=== PATIENT | female | born 1980 | race Caucasian/White ===

== ENCOUNTER → 2017-09-14 | Outpatient (CLI) | payer BC ==
[~2017-09-14] MED LIST: CLR10 PO; MTR600X PO; PRENTAB26 PO
== END | disposition home or self-care (01) ==
LOC: C.LABSPEC 13:32
PROVIDERS: ATTEND Physician Assistant
DX: Z01.419 Encounter for gynecological examination (general) (routine) without abnormal findings (principal)

== ENCOUNTER → 2017-09-14 | Outpatient (CLI) | payer BC | END | disposition home or self-care (01) | LOC: C.PAPS 15:24 | PROVIDERS: ATTEND Physician Assistant | DX: Z01.419 Encounter for gynecological examination (general) (routine) without abnormal findings (principal); Z11.51 Encounter for screening for human papillomavirus (HPV) ==

== ENCOUNTER 2020-06-21 08:03 | Inpatient (IN) ==
[2020-06-21] MEDS ORDERED: SODIUM CHLORIDE 0.9% 1000ML 1,000 ML IV ONE (08:23)
[2020-06-21] MEDS ORDERED: ACETAMINOPHEN 1,000 MG/100 ML VIAL IV STA (08:23)
[2020-06-21] MEDS: HYDROmorphone INJ 1 MG/ML SYRINGE IV PRN ×5 (08:35→20:51)
[2020-06-21 08:40] LABS: Basophils # (auto) 0.07 K/uL (0-0.2); Basophils % (auto) 0.9 %; Eosinophils # (auto) 0.66 K/uL (0-0.5); Eosinophils % (auto) 8.2 %; Hematocrit (blood only) 39.1 % (37-47); Hemoglobin 13.3 g/dL (12.0-16.0); Lymphocytes # (auto) 1.83 K/uL (1.2-3.4); Lymphocytes % (auto) 22.7 %; Mean Corpuscular Volume 94.2 fL (80-100); Mean Platelet Volume 9.7 fL (7.4-10.4); Monocytes # (auto) 0.57 K/uL (0.11-0.59); Monocytes % (auto) 7.1 %; Neutrophils # (auto) 4.93 K/uL (1.4-6.5); Neutrophils % (auto) 61.1 %; Platelet Count 215 K/uL (130-400); RDW Coefficient of Variation 12.1 % (11.5-14.5); RDW Standard Deviation 41.2 fL (36.4-46.3); Red Blood Count 4.15 M/uL (4.2-5.4); White Blood Count 8.06 K/uL (4.8-10.8)
[2020-06-21 08:58] LABS: Albumin Level 3.5 gm/dl (3.4-5.0); BUN Creatinine Ratio 16.9 (10-20); Calcium 9.3 mg/dl (8.5-10.1); Creatinine Clr Calc Pharmacy 83.3 ml/min; Est GFR (African American) 112.1; Est GFR (Non-African American) 96.8; Potassium 4.1 mmol/L (3.5-5.1)
[2020-06-21 09:01] LABS: Albumin Globulin Ratio 0.9 (0.9-2); Bilirubin,Total 0.2 mg/dl (0.2-1); Globulin 4.1 gm/dl (2.5-4.0); Total Protein 7.6 gm/dl (6.4-8.2)
--- NOTE | 2020-06-21 10:11 | Magnetic Resonance Report ---
MR lumbar spine wo con CLINICAL HISTORY: 40 years-old Female with Pt c/o back surgery, severe pain. Acute severe low back p ain in a patient with history of prior L5-S1 microdiscectomy performed 06/11/2020. Patient also compla ins of left lower extremity weakness. COMPARISON: Lumbar spine MRI 11/30/2019 TECHNIQUE: Multiplanar, multi sequence MRI of the lumbar spine was performed without intravenous cont rast. FINDINGS: Anteflexed uterus. Compensation Adjuster localizer images demonstrate no gross extraspinal abnormality. Modic type II endplate degeneration at L5-S1. Mild to moderate nonspecific edema throughout the sacrum with edema also noted within the left paraspinal musculature at L5-S1. No discrete postoperative fluid collectio n. Signal within the imaged thoracic spinal cord is unremarkable. Conus medullaris terminates at T12- L1. Please T12-L1: No central canal or neural foraminal stenosis. L1-L2: Mild facet arthrosis. No central canal or neural foraminal stenosis. L2-L3: Mild facet arthrosis. No central canal or neural foraminal stenosis. L3-L4: Minimal disc desiccation with small posterior annular disc bulge. Mild facet arthrosis with l igamentum flavum thickening. Flattening of the ventral thecal sac without significant central canal s tenosis. Mild narrowing of the bilateral inferior neural foramina. Unchanged. L4-L5: Mild disc desiccation with small posterior annular disc bulge. Mild facet arthrosis with liga mentum flavum thickening. Findings result in mild central canal stenosis with mild narrowing of the l ateral recesses. [id number] left with mild right foraminal narrowing. Unchanged. L5-S1: Mild to moderate disc space narrowing with Modic type II endplate degeneration. Circumferenti al annular disc bulge with central/left paracentral left lateral recess disc protrusion is redemonstr ated. This again measures 1.7 cm transversely by 0.7 cm in AP dimension. AP dimension of the thecal s ac measures 4.5 mm. This results in severe central canal stenosis with severe bilateral lateral reces s narrowing. There is again about men with posterior displacement of the left S1 nerve root. Edema titus rrounds the disc protrusion and left S1 nerve root which is new from prior. Postoperative changes of interval left hemilaminectomy. IMPRESSION: 1. Interval postoperative changes at L5-S1 suggestive of L5-S1 hemilaminectomy with moderate paraspin al muscular edema, likely expected postoperative finding without discrete postoperative fluid collect ion. Circumferential annular disc bulge at this level with persistent large posterior disc protrusion is again noted resulting in severe central canal and severe bilateral recess narrowing with abutment and posterior displacement of the left S1 nerve root. There is now edema within the left lateral rec ess and left S1 nerve root which may be on a postoperative basis. 2. Nonspecific marrow edema throughout the sacrum may be reactive. 3. Unchanged additional discogenic degeneration and facet arthrosis at L3-L4 and L4-L5. ACT 112: Negative or not required by law. The above report was generated using voice recognition software. It may contain grammatical, syntax o r spelling errors. Electronically signed by: Bao Jacobson M.D. 06/21/2020 10:09 AM
[2020-06-21 10:16] LABS: Appearance Urine Clear (Clear); Bacteria Urine Automated Negative (Negative); Bilirubin Urine Negative (Negative); Blood Urine Negative (Negative); Cast Urine Automated 0 /lpf (0-5); Color Urine Yellow; Glucose Urine UA Negative (Negative); Ketones Urine Negative (Negative); Leukocyte Esterase Urine 1+ (Negative); Nitrite Urine Negative (Negative); Protein Urine Negative (Negative); RBC Urine Automated 0-4 /hpf (0-4); Specific Gravity Urine 1.022 (1.000-1.030); Urobilinogen Urine Negative (Negative); pH Urine 6.5 (4.5-7.5)
[2020-06-21] MEDS ORDERED: DEXAMETHASONE SOD INJ 10 MG/ML VIAL IV ONE (10:27)
--- NOTE | 2020-06-21 11:16 | History & Physical Report ---
Date of Service June 21, 2020 Assessment & Plan (1) Recurrent herniation of lumbar disc: Admission and Anticipated Discharge Date Admission Date: At this time the patient clearly has recurrent lumbar disc condition from the operative site. She is quite uncomfortable with inability to ambulate and neurologic decline. I am going to place her in the hospital for pain management. We discussed revision decompression and fusion at L5-S1. Her was present throughout the discussion. Risk-benefit pros cons alternatives. This is the course of action she would like to undertake. We will have surgery performed Tuesday if cleared. History of Present Illness Chief Complaint: Back and left leg pain Primary Care Provider: Francisco Javier Calvo MD This is a 40-year-old female well-known to me that presents with marked increase in back and left leg pain. She believes the symptoms began late Tuesday progressed through and this morning became so severe she was unable to tolerate the pain and subsequently to the emergency room. She is status post lumbar laminotomy L5-S1 on the left approximately 2 weeks ago. She done nicely postoperatively with resolution of her symptoms until this recent event. MRI obtained this morning the emergency room does demonstrate a massive recurrent disc herniation L5-S1 the left with significant encroachment of the traversing nerve roots. Allergies Allergy/AdvReac Type Severity Reaction Status Date / Time No Known Allergies Allergy Verified 06/21/20 08:32 Home Medications Home Medications Medication Instructions Recorded Confirmed Type trazodone 1.5 tab PO HS PRN 10/06/18 06/21/20 History norethindrone 1 mg-ethinyl 1 tab PO QAM #28 tab 10/22/19 06/21/20 Rx estradiol 20 mcg (21)-iron 75 mg (7) tablet citalopram 40 mg tablet 40 mg PO DAILY tab 11/26/19 06/21/20 History loratadine-pseudoephedrine ER 10 1 tab PO DAILY PRN #30 tab 01/24/20 06/21/20 Rx mg-240 mg tablet,extended [id number] gabapentin 300 mg PO HS 05/26/20 06/21/20 History oxycodone 5 mg PO Q6H PRN #20 tab 06/11/20 06/21/20 Rx Past Med/Surg History Medical History (Updated 06/21/20 @ 11:15 by Hira Love DO) Abdominal pain Anxiety Depression History of hemorrhoids Surgical History History of bunionectomy of left great toe History of bunionectomy of right great toe History of colonoscopy History of open reduction and internal fixation (ORIF) procedure left shoulder--hardware in place History of wisdom tooth extraction Family History Grandmother (Maternal) Family history of diabetes mellitus Diabetes Grandfather (Paternal) Family hx of colon cancer Uncle Family hx of colon cancer Aunt Family hx of colon cancer Father Depression Pure hypercholesterolemia Mother Osteoporosis Pure hypercholesterolemia Denies family history of Ovarian cancer Breast cancer Uterine cancer Social History Smoking Status: Former smoker Tobacco Type: Cigarettes Second Hand Exposure: No; Hx Alcohol Use: Yes Alcohol type: wine Hx Substance Use: No Preferred Language: Filipino Communication Ability: Effective Visual Impairment: No Limitations Hearing Ability: Normal Nut Former Required: No Beliefs That Will Affect Care: None Current Living Situation: Spouse and Family Current Living Situation Comment: Lives with 2 daughters Other Information That Helps Us Care for You: No Feels Safe at Home: Yes Safety Concerns: Feels Safe At This Time Childhood Exposure to Second-Hand Smoke: No Assistive Devices: Glasses Physical Exam Physical Exam: On exam the patient is obvious distress. She is severe tension signs straight leg raising on the left minimal on the right. She exhibits strength deficits plantar flexion on the left compared to the right. D orsiflexion appears to be symmetric. Quadriceps symmetric and intact at 5 or 5. Incision healing appropriately. There is no significant erythema or drainage. Heart regular in rhythm Lungs clear to auscultation Results & Data ([facility]) Vital Signs (Past 12 Hours) Vital Signs Temp Pulse Pulse Resp BP BP Pulse Ox 06/21/20 10:34 79 20 110/73 99 06/21/20 09:52 84 16 99/66 L 96 06/21/20 09:04 83 16 103/67 98 06/21/20 08:44 83 18 106/65 98 06/21/20 08:40 97 06/21/20 08:10 36.4 C L 98 H 18 96/71 L 98
[2020-06-21] MEDS ORDERED: HYDROmorphone INJ 0.5 MG/0.5 ML SYR IV PRN (12:24)
[2020-06-21] MEDS ORDERED: TRAMADOL HCL 50 MG TABLET PO PRN (12:24)
[2020-06-21] MEDS ORDERED: ONDANSETRON 4 MG OD TAB PO PRN (12:24)
[2020-06-21] MEDS ORDERED: LORazepam 1 MG TAB PO PRN (12:24)
[2020-06-21] MEDS ORDERED: ONDANSETRON INJ 2 MG/ML 2 ML VIAL IV PRN (12:24)
[2020-06-21] MEDS ORDERED: PROMETHAZINE HCL 12.5 MG in SODIUM CHLORIDE 0.9% 50 ML IV PRN (12:24)
[2020-06-21] MEDS ORDERED: ACETAMINOPHEN 500 MG TAB PO PRN (12:24)
[2020-06-21] MEDS ORDERED: METOCLOPRAMIDE HCL INJ 5 MG/ML 2 ML VIAL IV PRN (12:24)
[2020-06-21] MEDS ORDERED: LORATADINE/PSEUDOEPHEDRINE 1 TABCR PO PRN (12:24)
[2020-06-21 12:52] LABS: Pregnancy Test, Serum Negative (Negative)
--- NOTE | 2020-06-21 13:30 | Emergency Department Note ---
History of Present Illness General Chief complaint: Back Injury/Pain Stated complaint: BACK PAIN S/P SURGERY 06/11/20 Time Seen by Provider: 06/21/20 08:17 Source: patient, family, RN notes reviewed and old records reviewed Mode of arrival: ambulatory Limitations: no limitations History of Present Illness Provider complaint: Back pain Onset (ago): day(s) 1 Location: back Radiation: extremity Severity: severe Pain Consistency: + intermittent Maximum Pain Intensity: 10 Current Pain Intensity: 10 Quality: + stabbing Relieved By: + other (standing) Exacerbated By: + other (laying down) Associated symptoms: + denies other symptoms; no chest pain, no diaphoresis, no fever/chills, no headaches, no loss of appetite and no nausea/vomiting Treatments prior to arrival: none This is a 40-year-old female who presents emergency department over concerns that she has developing back pain. The patient recently had back surgery approximately 10 days ago. She reports the back pain became much worse within the last 24 hours. She has been taking oxycodone for the pain without relief. She reports the pain gets much worse if she lays down. She stands and feels much better she reports the back pain is a stabbing sensation that radiates into her leg. Home Medications Home Medications Medication Instructions Recorded Confirmed Type trazodone 1.5 tab PO HS PRN 10/06/18 06/21/20 History norethindrone 1 mg-ethinyl 1 tab PO QAM #28 tab 10/22/19 06/21/20 Rx estradiol 20 mcg (21)-iron 75 mg (7) tablet citalopram 40 mg tablet 40 mg PO DAILY tab 11/26/19 06/21/20 History loratadine-pseudoephedrine ER 10 1 tab PO DAILY PRN #30 tab 01/24/20 06/21/20 Rx mg-240 mg tablet,extended [id number] gabapentin 300 mg PO HS 05/26/20 06/21/20 History oxycodone 5 mg PO Q6H PRN #20 tab 06/11/20 06/21/20 Rx Allergies Allergy/AdvReac Type Severity Reaction Status Date / Time No Known Allergies Allergy Verified 06/21/20 08:32 Past Med/Surg History Medical History Abdominal pain Anxiety Depression History of hemorrhoids Surgical History History of bunionectomy of left great toe History of bunionectomy of right great toe History of colonoscopy History of open reduction and internal fixation (ORIF) procedure left shoulder--hardware in place History of wisdom tooth extraction Family History Grandmother (Maternal) Family history of diabetes mellitus Diabetes Grandfather (Paternal) Family hx of colon cancer Uncle Family hx of colon cancer Aunt Family hx of colon cancer Father Depression Pure hypercholesterolemia Mother Osteoporosis Pure hypercholesterolemia Denies family history of Ovarian cancer Breast cancer Uterine cancer Social History Smoking Status: Former smoker Tobacco Type: Cigarettes Second Hand Exposure: No; Hx Alcohol Use: Yes Alcohol type: wine Hx Substance Use: No Preferred Language: [place] Communication Ability: Effective Visual Impairment: No Limitations Hearing Ability: Normal Communications Professor Required: No Beliefs That Will Affect Care: None Current Living Situation: Spouse and Family Current Living Situation Comment: Lives with 2 daughters Other Information That Helps Us Care for You: No Feels Safe at Home: Yes Safety Concerns: Feels Safe At This Time Childhood Exposure to Second-Hand Smoke: No Assistive Devices: Glasses Review of Systems A total of 10 systems reviewed and were otherwise negative Physical Exam Vital Signs Vital Signs - 24 hr 06/21/20 08:10 06/21/20 08:40 06/21/20 08:44 Temperature 36.4 C L Temperature Source Oral Pulse Rate 98 H Pulse Rate [Left Finger] 83 Respiratory Rate 18 18 Respiratory Effort / Characteristics Non-Labored Spontaneous Respiratory Depth Normal Respiratory Pattern Regular Blood Pressure 96/71 L Blood Pressure [Left Arm] 106/65 Blood Pressure Mean 79 Blood Pressure Mean [Left Arm] 78 Blood Pressure Position Sitting Pulse Oximetry 98 97 98 Oxygen Delivery Method Room Air Room Air Room Air Sepsis Recent Fever Within 48 Hours No Sepsis New/Unexplained Change in Mental Status N/A Sepsis Action Taken by Nursing No Action Required 06/21/20 09:04 06/21/20 09:52 06/21/20 10:34 Temperature Temperature Source Pulse Rate Pulse Rate [Left Finger] 83 84 79 Respiratory Rate 16 16 20 Respiratory Effort / Characteristics Respiratory Depth Respiratory Pattern Blood Pressure Blood Pressure [Left Arm] 103/67 99/66 L 110/73 Blood Pressure Mean Blood Pressure Mean [Left Arm] 79 77 85 Blood Pressure Position Pulse Oximetry 98 96 99 Oxygen Delivery Method Room Air Room Air Room Air Sepsis Recent Fever Within 48 Hours Sepsis New/Unexplained Change in Mental Status Sepsis Action Taken by Nursing 06/21/20 11:36 06/21/20 11:53 Temperature Temperature Source Pulse Rate 76 Pulse Rate [Left Finger] 78 Respiratory Rate 20 16 Respiratory Effort / Characteristics Respiratory Depth Respiratory Pattern Blood Pressure 107/76 Blood Pressure [Left Arm] 107/76 Blood Pressure Mean Blood Pressure Mean [Left Arm] 86 Blood Pressure Position Pulse Oximetry 98 98 Oxygen Delivery Method Room Air Sepsis Recent Fever Within 48 Hours Sepsis New/Unexplained Change in Mental Status Sepsis Action Taken by Nursing VITAL SIGNS - Vital signs and nursing notes were reviewed. GENERAL - 40-year-old female appearing stated age who is in no acute distress. Communicates well with provider and answers questions appropriately. Able to walk on tip toes and heels, No evidence of saddle anesthesia SKIN - Without rashes. HEAD - NC/AT. EYES - PERRL with EOMI bilaterally. Sclera anicteric. Palpebral conjunctiva pink and moist with no injection noted. EARS - No deformities of external structures noted on gross examination bilaterally. No pain elicited with palpation of the tragus bilaterally. External auditory canals without discharge or otorrhea. Tympanic membranes pearly paige without retraction or bulging. No fluid or purulent material visualized behind the TM. Handle of malleus, umbo, cone of light, pars tensa/flaccid all easily visualized. NOSE - Midline and without cyanosis. No epistaxis or purulent drainage noted. Septum midline without deviation or septal hematoma noted. MOUTH/OROPHARYNX - Without perioral cyanosis. Buccal mucosa pink and moist and without leukoplakia. Tongue midline with equal elevation of palate bilaterally. No tonsillar hypertrophy, erythema, or exudates noted. dentition noted. NECK - Neck with FROM. Supple to palpation. lymphadenopathy noted. No nuchal rigidity. BACK: Surgical site healing well, tender L5 area LUNGS - Chest wall symmetric without accessory muscle use, intercostals retractions, or central cyanosis. Normal vesicular breath sounds CTA B/L. No wheezes, rales, or rhonchi appreciated. CARDIAC - RRR with S1/S2. No murmur, rubs, or gallops appreciated. ABDOMEN - Abdominal contour without pulsations or visible masses. BS normoactive all four quadrants. No tenderness, palpable masses, hepatosplenomegaly, or ascites noted. EXTREMITIES - No clubbing or peripheral cyanosis. No pretibial edema present. +3/5 radial, posterior tibial, and dorsalis pedis pulses palpated throughout. +5/5 strength noted in UE/LE bilaterally. NEUROLOGIC - Cranial nerves II through XII grossly intact. Sensory intact to li ght touch throughout. Patellar reflexes +2/4. PSYCH - A&Ox3 and cooperates fully with examiner. Pt is very pleasant and interacts well with examiner. Course Administered Medications Discontinued Medications Dexamethasone (Dexamethasone Sod Inj 10 Mg/Ml Vial) 10 mg IV NOW ONE Stop: 06/21/20 10:28 Last Admin: 06/21/20 10:37 Dose: 10 mg Documented by: [id number] Hydromorphone HCl (Hydromorphone Inj 1 Mg/Ml Syringe) 1 mg IV Q15M PRN PRN Reason: Pain Stop: 07/05/20 08:22 Last Admin: 06/21/20 10:34 Dose: 1 mg Documented by: [id number] Admin: 06/21/20 08:35 Dose: 1 mg Documented by: [id number] Sodium Chloride (Nss 1000ml) 1,000 mls @ 999 mls/hr IV .Q1H1M ONE Stop: 06/21/20 09:23 Last Infusion: 06/21/20 09:51 Dose: 0 mls/hr Documented by: [id number] Admin: 06/21/20 08:35 Dose: 999 mls/hr Documented by: [id number] Acetaminophen (Ofirmev) 1,000 mg in 100 mls @ 400 mls/hr IV NOW STA Stop: 06/21/20 08:37 Last Infusion: 06/21/20 09:05 Dose: 0 mls/hr Documented by: [id number] Admin: 06/21/20 08:35 Dose: 400 mls/hr Documented by: [id number] Medical Decision Making Differential Diagnosis Musculoskeletal, disc herniation, fracture, metastatic disease, cord compression, discitis, sciatica, cauda equina, infection, aortic disease, renal colic, gastrointestinal, as well as other pathologies. Medical Records Attestation: I reviewed the patient's medical records. Home Medications Current Medication List: was personally reviewed by me Laboratory Data Attestation: I reviewed the patient's lab results. Result diagrams: 06/21/20 08:31 06/21/20 08:31 Lab Results 06/21/20 06/21/20 06/21/20 Range/Units 08:31 08:31 08:31 WBC 8.06 (4.8-10.8) K/uL RBC 4.15 L (4.2-5.4) M/uL Hgb 13.3 (12.0-16.0) g/dL Hct 39.1 (37-47) % MCV 94.2 (80-100) fL MCH 32.0 (25-34) pg MCHC 34.0 (32-36) g/dL RDW Std Deviation 41.2 (36.4-46.3) fL RDW Coeff of Lidia 12.1 (11.5-14.5) % Plt Count 215 (130-400) K/uL MPV 9.7 (7.4-10.4) fL Immature Gran % (Auto) 0.0 % Neut % (Auto) 61.1 % Lymph % (Auto) 22.7 % Scurry % (Auto) 7.1 % Eos % (Auto) 8.2 % Baso % (Auto) 0.9 % Neut # (Auto) 4.93 (1.4-6.5) K/uL Lymph # (Auto) 1.83 (1.2-3.4) K/uL Scurry # (Auto) 0.57 (0.11-0.59) K/uL Eos # (Auto) 0.66 H (0-0.5) K/uL Baso # (Auto) 0.07 (0-0.2) K/uL Immature Gran # (Auto) 0.00 (0.00-0.02) K/uL Sodium 137 (136-145) mmol/L Potassium 4.1 (3.5-5.1) mmol/L Chloride 102 (98-107) mmol/L Carbon Dioxide 29 (21-32) mmol/L Anion Gap 7.0 (3-11) BUN 13 (7-18) mg/dl Creatinine 0.76 (0.6-1.2) mg/dl Est Cr Clr Drug Dosing 83.3 ml/min Est GFR ( Amer) 112.1 Est GFR (Non-Af Amer) 96.8 BUN/Creatinine Ratio 16.9 (10-20) Glucose 101 H (70-99) mg/dl Calcium 9.3 (8.5-10.1) mg/dl Total Bilirubin 0.2 (0.2-1) mg/dl AST 12 L (15-37) U/L ALT 17 (12-78) U/L Alkaline Phosphatase 57 (45-117) U/L Total Protein 7.6 (6.4-8.2) gm/dl Albumin 3.5 (3.4-5.0) gm/dl Globulin 4.1 H (2.5-4.0) gm/dl Albumin/Globulin Ratio 0.9 (0.9-2) HCG, Qual Negative (Negative) Urine Color Urine Appearance (Clear) Urine pH (4.5-7.5) Ur Specific Blackstock (1.000-1.030) Urine Protein (Negative) Urine Glucose (UA) (Negative) Urine Ketones (Negative) Urine Blood (Negative) Urine Nitrite (Negative) Urine Bilirubin (Negative) Urine Urobilinogen (Negative) Ur Leukocyte Esterase (Negative) Urine WBC (Auto) (0-5) /hpf Urine RBC (Auto) (0-4) /hpf U Hyaline Cast (Auto) (0-5) /lpf U Epithel Cells (Auto) (0-5) /lpf Urine Bacteria (Auto) (Negative) 06/21/20 Range/Units 10:02 WBC (4.8-10.8) K/uL RBC (4.2-5.4) M/uL Hgb (12.0-16.0) g/dL Hct (37-47) % MCV (80-100) fL MCH (25-34) pg MCHC (32-36) g/dL RDW Std Deviation (36.4-46.3) fL RDW Coeff of Lidia (11.5-14.5) % Plt Count (130-400) K/uL MPV (7.4-10.4) fL Immature Gran % (Auto) % Neut % (Auto) % Lymph % (Auto) % Scurry % (Auto) % Eos % (Auto) % Baso % (Auto) % Neut # (Auto) (1.4-6.5) K/uL Lymph # (Auto) (1.2-3.4) K/uL Scurry # (Auto) (0.11-0.59) K/uL Eos # (Auto) (0-0.5) K/uL Baso # (Auto) (0-0.2) K/uL Immature Gran # (Auto) (0.00-0.02) K/uL Sodium (136-145) mmol/L Potassium (3.5-5.1) mmol/L Chloride (98-107) mmol/L Carbon Dioxide (21-32) mmol/L Anion Gap (3-11) BUN (7-18) mg/dl Creatinine (0.6-1.2) mg/dl Est Cr Clr Drug Dosing ml/min Est GFR ( Amer) Est GFR (Non-Af Amer) BUN/Creatinine Ratio (10-20) Glucose (70-99) mg/dl Calcium (8.5-10.1) mg/dl Total Bilirubin (0.2-1) mg/dl AST (15-37) U/L ALT (12-78) U/L Alkaline Phosphatase (45-117) U/L Total Protein (6.4-8.2) gm/dl Albumin (3.4-5.0) gm/dl Globulin (2.5-4.0) gm/dl Albumin/Globulin Ratio (0.9-2) HCG, Qual (Negative) Urine Color Yellow Urine Appearance Clear (Clear) Urine pH 6.5 (4.5-7.5) Ur Specific Blackstock 1.022 (1.000-1.030) Urine Protein Negative (Negative) Urine Glucose (UA) Negative (Negative) Urine Ketones Negative (Negative) Urine Blood Negative (Negative) Urine Nitrite Negative (Negative) Urine Bilirubin Negative (Negative) Urine Urobilinogen Negative (Negative) Ur Leukocyte Esterase 1+ H (Negative) Urine WBC (Auto) 10-30 H (0-5) /hpf Urine RBC (Auto) 0-4 (0-4) /hpf U Hyaline Cast (Auto) 0 (0-5) /lpf U Epithel Cells (Auto) 10-20 H (0-5) /lpf Urine Bacteria (Auto) Negative (Negative) Imaging Data Radiologist's Impression: [facility], [place] [phone] Magnetic Resonance Report Patient: DIONISIO SANCHEZ Date: 06/21/20 MR#: [id number]: [id number] Acct ID:[id number]: Date: 1980[facility] Zip: [place] [id number] Age: 40Location: ED Sex: FRoom/Bed: Att Phy:Diagnosis: BACK PAIN S/P SURGERY 06/11/20 Riddhi Phy: RV. Dread, MDService Date: 06/21/20 Fam Phy:Interpreting Phy: Car Jacobson Admit Phy: Ordering Phy: Juan Dill MD cc: ~ MR lumbar spine wo con CLINICAL HISTORY: 40 years-old Female with Pt c/o back surgery, severe pain. Acute severe low back pain in a patient with history of prior L5-S1 mi crodiscectomy performed 06/11/2020. Patient also complains of left lower extremity weakness. COMPARISON: Lumbar spine MRI 11/30/2019 TECHNIQUE: Multiplanar, multi sequence MRI of the lumbar spine was performed without intravenous contrast. FINDINGS: Anteflexed uterus. [employer] localizer images demonstrate no gross extraspinal abnormality. Modic type II endplate degeneration at L5-S1. Mild to moderate nonspecific edema throughout the sacrum with edema also noted within the left paraspinal musculature at L5-S1. No discrete postoperative fluid collection. Signal within the imaged thoracic spinal cord is unremarkable. Conus medullaris terminates at T12-L1. Please T12-L1: No central canal or neural foraminal stenosis. L1-L2: Mild facet arthrosis. No central canal or neural foraminal stenosis. L2-L3: Mild facet arthrosis. No central canal or neural foraminal stenosis. L3-L4: Minimal disc desiccation with small posterior annular disc bulge. Mild facet arthrosis with ligamentum flavum thickening. Flattening of the ventral thecal sac without significant central canal stenosis. Mild narrowing of the bilateral inferior neural foramina. Unchanged. L4-L5: Mild disc desiccation with small posterior annular disc bulge. Mild facet arthrosis with ligamentum flavum thickening. Findings result in mild central canal stenosis with mild narrowing of the lateral recesses. [id number] left with mild right foraminal narrowing. Unchanged. L5-S1: Mild to moderate disc space narrowing with Modic type II endplate degeneration. Circumferential annular disc bulge with central/left paracentral left lateral recess disc protrusion is redemonstrated. This again measures 1.7 cm transversely by 0.7 cm in AP dimension. AP dimension of the thecal sac measures 4.5 mm. This results in severe central canal stenosis with severe bilateral lateral recess narrowing. There is again about men with posterior displacement of the left S1 nerve root. Edema surrounds the disc protrusion and left S1 nerve root which is new from prior. Postoperative changes of interval left hemilaminectomy. IMPRESSION: 1. Interval postoperative changes at L5-S1 suggestive of L5-S1 hemilaminectomy with moderate paraspinal muscular edema, likely expected postoperative finding without discrete postoperative fluid collection. Circumferential annular disc bulge at this level with persistent large posterior disc protrusion is again noted resulting in severe central canal and severe bilateral recess narrowing with abutment and posterior displacement of the left S1 nerve root. There is now edema within the left lateral recess and left S1 nerve root which may be on a postoperative basis. 2. Nonspecific marrow edema throughout the sacrum may be reactive. 3. Unchanged additional discogenic degeneration and facet arthrosis at L3-L4 and L4-L5. ACT 112: Negative or not required by law. The above report was generated using voice recognition software. It may contain grammatical, syntax or spelling errors. Electronically signed by: Bao Jacobson M.D. 06/21/2020 10:09 AM Dictated: 06/21/20 0956 Transcribed: 06/21/20 0956 [facility] Narrative This is a 40-year-old female who presents emergency department complaining of back pain. The patient is very uncomfortable on physical examination. Using shared medical decision making patient was given IV Dilaudid as well as Tylenol. She was sent for an MRI of her spine which was concerning for a slipped disc. The patient does not have an elevation in her white blood cell count. She was given 10 of Decadron here in the emergency department. I did discuss the case with the orthopedic spine surgeon who was kind enough to come in and see the patient. Patient was seen and evaluated as above in room B10. Review was performed of nursing notes and vital signs. I did review pertinent previous visits and patie nt history. After obtaining a thorough history and physical examination the above work up was performed. An order was placed for continuous cardiac monitoring. The monitor shows a rate of 67 with Normal Sinus rhythm. The patient was evaluated during the global COVID-19 pandemic, and that diag nosis was suspected/considered upon their initial presentation. Their evaluation, treatment and testing was consistent with current guidelines for patients who present with complaints or symptoms that may be related to COVID- 19. Impression & Plan Low back pain, Recurrent herniation of lumbar disc Discharge Plan Visit Data Chief Complaint: Back Injury/Pain Stated Complaint: BACK PAIN S/P SURGERY 06/11/20 ED Provider: Juan Dill Discharge Problem: Low back pain, Recurrent herniation of lumbar disc Patient Disposition: Admitted As Inpatient Discharge Instructions Interventions: ED Discharge Assessment Last Done: 06/21/20 11:53 Discharge Problem: Low back pain Qualifiers: Chronicity: acute Back pain laterality: unspecified Sciatica presence: unspecified whether sciatica present Qualified Code(s): M54.5 - Low back pain
[2020-06-21] MEDS: LACTATED RINGER'S 1,000 ML IV SCH (13:48)
[2020-06-21] MEDS: LORazepam 1 MG/2 ML VIAL IV PRN (14:32)
[2020-06-21] MEDS ORDERED: COUGH DROP (SUGAR FREE) LOZ 24 LOZ/1 BOX BUCCAL ONE (14:35)
[2020-06-21] MEDS: TRAZODONE HCL 50 MG TAB PO PRN (21:20)
[2020-06-21] MEDS: DOCUSATE SODIUM 100 MG CAP PO SCH (21:20)
[2020-06-21] MEDS: GABAPENTIN 300 MG CAP PO SCH (21:21)
[2020-06-22] MEDS: LACTATED RINGER'S 1,000 ML IV SCH ×2 (03:03→15:14)
[2020-06-22] MEDS: HYDROmorphone INJ 1 MG/ML SYRINGE IV PRN ×6 (03:05→21:15)
[2020-06-22] MEDS ORDERED: CEFAZOLIN 1000MG 1,000 MG/7.5 ML SYR IV SCH (06:00)
--- NOTE | 2020-06-22 08:46 | Orthopedic Progress Note ---
Date of Service June 22, 2020 Assessment & Plan (1) Recurrent herniation of lumbar disc: Continue with pain control today. Patient will be n.p.o. after midnight in anticipation of lumbar fusion L5-S1 tomorrow with Dr. Love. All questions have been answered in detail. Admission and Anticipated Discharge Date Admission Date: June 21, 2020 Supervising Physician Co-Signing Physician Notes Dr. Hira Love Subjective Patient has better pain control. He still has significant left lower extremity pain. Is tentatively scheduled for revision decompression and fusion L5-S1 tomorrow. Review of Systems Review of Systems: All systems reviewed & are unremarkable except as noted in HPI & below Physical Exam Physical Exam: Lying in bed. Quite uncomfortable. Alert and oriented x3. Constitutional: WD/WN, vitals as above Eyes: PERRL, conjunctivae normal, anicteric sclerae ENMT: external ear and nose normal, oropharynx normal Neck: normal visual inspection Respiratory: normal respiratory effort Cardiovascular: Vessels: normal peripheral pulses and dorsalis pedis pulses present Chest (Breasts): Chest: normal inspection of chest Gastrointestinal (Abdomen): Inspection/Auscultation: abdomen normal to inspection Musculoskeletal: Spine: + straight leg raise positive Extremities: extremities normal to inspection Gait: + antalgic gait Skin: Lumbar dressing is clean dry and intact. Incision is without erythema, purulent drainage, ecchymosis. Neurologic: normal touch/pain/proprioception and moves all extremities Psychiatric: Speech: normal rate/rhythm/volume of speech Results & Data ([facility]) Vital Signs (Past 12 Hours) Vital Signs Temp Pulse Resp BP Pulse Ox 06/22/20 07:25 36.9 C 77 16 103/63 98 06/21/20 23:03 36.9 C 83 16 113/71 96
[2020-06-22] MEDS: DOCUSATE SODIUM 100 MG CAP PO SCH ×2 (08:57→21:12)
[2020-06-22] MEDS: CITALOPRAM 40 MG TAB PO SCH (08:57)
[2020-06-22] MEDS: dexAMETHasone 8 MG in SYRINGE 0 ML IV SCH (08:58)
--- NOTE | 2020-06-22 09:48 | Anesthesiology Consultation ---
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 Height/Weight Height: 5 ft 4 in Weight: 55.9 kg Allergies Allergy/AdvReac Type Severity Reaction Status Date / Time No Known Allergies Allergy Verified 06/21/20 08:32 Medications Home Medications Medication Instructions Recorded Confirmed Last Taken trazodone 1.5 tab PO HS PRN 10/06/18 06/21/20 06/20/20 norethindrone 1 mg-ethinyl 1 tab PO QAM #28 tab 10/22/19 06/21/20 06/21/20 estradiol 20 mcg (21)-iron 75 mg (7) tablet citalopram 40 mg tablet 40 mg PO DAILY tab 11/26/19 06/21/20 06/21/20 loratadine-pseudoephedrine ER 10 1 tab PO DAILY PRN #30 tab 01/24/20 06/21/20 06/21/20 mg-240 mg tablet,extended [id number] gabapentin 300 mg PO HS 05/26/20 06/21/20 06/20/20 oxycodone 5 mg PO Q6H PRN #20 tab 06/11/20 06/21/20 06/21/20 Active Medications Generic Name Dose Route Start Last Admin Trade Name Romeoq PRN Reason Stop Dose Admin Acetaminophen 1,000 mg 06/21/20 12:24 06/21/20 20:00 Acetaminophen 500 Mg Tab PO 07/21/20 12:23 1,000 mg Q8H PRN Administration MILD Pain Rating 1,2,3 Citalopram Hydrobromide 40 mg 06/22/20 09:00 06/22/20 08:57 Citalopram 40 Mg Tab PO 07/22/20 08:59 40 mg DAILY MARIZOL Administration Docusate Sodium 100 mg 06/21/20 21:00 06/22/20 08:57 Docusate Sodium 100 Mg Cap PO 07/21/20 20:59 100 mg BID MARIZOL Administration Gabapentin 300 mg 06/21/20 21:00 06/21/20 21:21 Gabapentin 300 Mg Cap PO 07/21/20 20:59 300 mg HS MARIZOL Administration Hydromorphone HCl 1 mg 06/21/20 12:24 06/22/20 07:34 Hydromorphone Inj 1 Mg/Ml Syringe IV 10/10/20 12:23 1 mg Q3H PRN Administration severe pain (scale 7-10) Lorazepam 1 mg in 2 mls @ 2 mls/min 06/21/20 12:24 06/21/20 14:32 Ativan IV 07/21/20 12:23 2 mls/min Q6H PRN Administration Anxiety/Spasms Lactated Ringer's 1,000 mls @ 75 mls/hr 06/21/20 13:00 06/22/20 03:03 Lr IV 07/21/20 12:59 75 mls/hr .[id number] MARIZOL Administration Dexamethasone 8 mg/ Syringe 2 mls @ 1 mls/min 06/22/20 09:00 06/22/20 08:58 IV 06/24/20 09:01 1 mls/min DAILY MARIZOL Administration Miscellaneous 1 ea 06/21/20 16:00 06/22/20 08:57 Microgestin Fe 10/15 --Order Awaiting Action N/A 07/21/20 15:59 Not Given QS MARIZOL Trazodone HCl 75 mg 06/21/20 12:24 06/21/20 21:20 Trazodone Hcl 50 Mg Tab PO 07/21/20 12:23 75 mg HS PRN Administration Sleep Past Medical History Medical History Abdominal pain Anxiety Depression History of hemorrhoids Past Family History Family History Grandmother (Maternal) Family history of diabetes mellitus Diabetes Grandfather (Paternal) Family hx of colon cancer Uncle Family hx of colon cancer Aunt Family hx of colon cancer Father Depression Pure hypercholesterolemia Mother Osteoporosis Pure hypercholesterolemia Denies family history of Ovarian cancer Breast cancer Uterine cancer Past Surgical History Surgical History History of bunionectomy of left great toe History of bunionectomy of right great toe History of colonoscopy History of open reduction and internal fixation (ORIF) procedure left shoulder--hardware in place History of wisdom tooth extraction Social History Smoking Status: Former smoker Hx Alcohol Use: Yes Alcohol type: wine alcohol intake frequency: a few times a month Hx Substance Use: No substance use type: does not use Physical Exam Vital Signs Last Vital Signs Temp 98.4 F 06/22/20 07:25 Pulse 77 06/22/20 07:25 Resp 16 06/22/20 07:25 BP 103/63 06/22/20 07:25 Pulse Ox 98 06/22/20 07:25 Testing Laboratory Results 06/21/20 08:31 06/21/20 08:31 Urine Color Yellow 06/21/20 10:02 Urine Appearance Clear (Clear) 06/21/20 10:02 Urine pH 6.5 (4.5-7.5) 06/21/20 10:02 Ur Specific [place] 1.022 (1.000-1.030) 06/21/20 10:02 Urine Protein Negative (Negative) 06/21/20 10:02 Urine Glucose (UA) Negative (Negative) 06/21/20 10:02 Urine Ketones Negative (Negative) 06/21/20 10:02 Urine Nitrite Negative (Negative) 06/21/20 10:02 Ur Leukocyte Esterase 1+ (Negative) H 06/21/20 10:02 Urine WBC (Auto) 10-30 /hpf (0-5) H 06/21/20 10:02 Urine RBC (Auto) 0-4 /hpf (0-4) 06/21/20 10:02 U Hyaline Cast (Auto) 0 /lpf (0-5) 06/21/20 10:02 U Epithel Cells (Auto) 10-20 /lpf (0-5) H 06/21/20 10:02 Urine Bacteria (Auto) Negative (Negative) 06/21/20 10:02 Laboratory Tests 06/21/20 13:43 SARS-CoV-2, RNA, NAAT NEGATIVE Electrocardiogram Date: 05/28/20 Normal sinus rhythm, rate 73 bpm Septal infarct , age undetermined Abnormal ECG No previous ECGs available Confirmed by Cesar Tijerina ([id number]) on 05/30/2020 6:07:42 AM Chest X-Ray Date: 05/28/20 FINDINGS: Cardiomediastinal and hilar silhouettes are within normal limits. No pneumothorax, pleural effusion, airspace consolidation or overt pulmonary edema. ORIF hardware of the proximal left humerus. The bones appear grossly intact. IMPRESSION: No acute process.
[2020-06-22] MEDS: TRAZODONE HCL 50 MG TAB PO PRN (21:11)
[2020-06-22] MEDS: GABAPENTIN 300 MG CAP PO SCH (21:12)
[2020-06-23] MEDS: LACTATED RINGER'S 1,000 ML IV SCH (04:42)
[2020-06-23] MEDS: MoRPHine SULFATE 2 MG/ML CARP IV PRN ×5 (04:49→21:30)
[2020-06-23] MEDS ORDERED: CEFAZOLIN 1000MG 1,000 MG/7.5 ML SYR IV SCH (06:00)
[2020-06-23] MEDS: DOCUSATE SODIUM 100 MG CAP PO SCH ×2 (09:21→20:01)
[2020-06-23] MEDS: dexAMETHasone 8 MG in SYRINGE 0 ML IV SCH (09:21)
[2020-06-23] MEDS: CITALOPRAM 40 MG TAB PO SCH (09:21)
[2020-06-23] MEDS: JUNEL FE PO SCH (09:22)
[2020-06-23] MEDS ORDERED: MIDAZOLAM HCL 1 MG/ML 2ML VIAL ONE (14:35)
[2020-06-23] MEDS ORDERED: fentaNYL citrate 100 MCG/2 ML VIAL ONE ×3 (14:36→16:28)
[2020-06-23] MEDS ORDERED: BUPIVACAINE/EPINEPHRINE 0.25% 1:200,000 30 ML VIAL ONE (14:54)
[2020-06-23] MEDS ORDERED: BACITRACIN INJ 50,000 UNIT VIAL ONE (14:54)
[2020-06-23] MEDS ORDERED: ATROPINE SULFATE 0.1 MG/ML 10ML SYR IV PRN (14:58)
[2020-06-23] MEDS ORDERED: ONDANSETRON INJ 2 MG/ML 2 ML VIAL IV PRN ×2 (14:58→18:01)
[2020-06-23] MEDS ORDERED: ePHEDrine sulfate 50 MG/ML AMP IV PRN (14:58)
--- NOTE | 2020-06-23 15:00 | Orthopedic Progress Note ---
Date of Service June 23, 2020 Assessment & Plan (1) Recurrent herniation of lumbar disc: Admission and Anticipated Discharge Date Admission Date: June 21, 2020 At this time patient continues have severe pain with neuro deficits we will plan to move forward with a lumbar decompression fusion L5-S1. Subjective Patient continues have severe left leg pain. Physical Exam Physical Exam: Patient is marked tension signs straight leg raise on the left. She is limitations to plantar flexion dorsiflexion and clear breakaway weakness. Results & Data ([facility]) Vital Signs (Past 12 Hours) Vital Signs Temp Pulse Resp BP Pulse Ox 06/23/20 07:36 36.8 C 66 16 123/82 98
[2020-06-23] MEDS ORDERED: FLOSEAL HEMOSTATIC MATRIX 10ML TOP ONE (16:14)
[2020-06-23] MEDS ORDERED: PROPOFOL IV EMULSION 10 MG/ML 20 ML VIAL IV ONE (16:15)
[2020-06-23] MEDS ORDERED: ROCURONIUM BROMIDE 10 MG/ML 5 ML VIAL IV ONE (16:15)
[2020-06-23] MEDS ORDERED: NEOSTIGMINE METHYLSULFATE 1 MG/ML 10ML VIAL ONE (16:15)
[2020-06-23] MEDS ORDERED: ONDANSETRON INJ 2 MG/ML 2 ML VIAL ONE (16:15)
[2020-06-23] MEDS ORDERED: LIDOCAINE HCL 2% 2 ML VIAL/AMP(20MG/ML) INFIL ONE (16:15)
[2020-06-23] MEDS ORDERED: GLYCOPYRROLATE 0.2 MG/ML VIAL ONE (16:15)
[2020-06-23] MEDS ORDERED: DEXAMETHASONE SOD INJ 4 MG/ML VIAL ONE (16:15)
[2020-06-23] MEDS ORDERED: LARYING-O-JET KIT (LTA) ONE (16:15)
--- NOTE | 2020-06-23 16:54 | Operative Report ---
Post Operative Report Pre & Post Diagnosis Operation Date: 06/23/20 13:25 Pre-Op Diagnosis: Recurrent Herniation of Lumbar Disc Post-Op Diagnosis: Recurrent Herniation of Lumbar Disc I identified the patient and participated in the time-out.: Yes Procedure Operation Date: 06/23/20 13:25 Actual Procedures #1 revision decompression L5-S1. #2 posterior spinal fusion L5-S1. #3 placement posterior instrumentation L5-S1. #4 interbody fusion L5-S1. #5 placement peek cage 11 x 22 mm at L5-S1. #6 placement locally harvested morselized autograft in the posterior lateral gutters. #7 placement infuse collagen sponge, master graft in the posterior lateral gutters and ostial amp interbody space. Surgeon Hira Love, Commissary Steward None Estimated Blood Loss 40 Findings Consistent with Post-Op Diagnosis Specimens None Indications This is a 40-year-old female that status post lumbar laminectomy proximally 2 weeks ago the presents with severe recurrent pain. MRI demonstrates massive recurrent disc herniation she is here for subsequent revision surgery. Description of Procedure Patient was met with preop the case is discussed all questions were addressed but that point patient was taken back to op suite underwent elevation placed in a prone position on the Tej table on top of the Kurt frame. All bony prominences well-padded eyes inspected to ensure no external pressure placed upon them. This point the lumbar spine was prepped and draped in normal sterile fashion. Sharp dissection with assistance of Bovie cautery performed down to and exposing remaining lamina and transverse processes of L5 and sacral ala bilaterally. From a caudal cephalad fashion revision complete laminectomy of L5 was performed including medial facetectomy foraminotomies on the left as well as addressing massive recurrent disc herniation with significant encroachment traversing nerve root. Pedicle screws were then placed in L5 and S1 levels bilaterally with assistance of fluoroscopy the proper sized sunshine placed. By way of a transforaminal portion left complete discectomy was performed endplates curetted to subcortical being bone and a 11 x 22 mm peek cage filled osteo-bone graft tapped in position. The rods were then locked in final position bilaterally. The transverse processes of L5 and sacral ala burred to subcortical bleeding bone. Infuse collagen sponge master graft local autograft was placed in the posterior lateral gutters. 15 round HIPOLITO drain inserted. The incision was then closed with 1 Vicryl the fascia 2-0 Vicryl subcutaneously and 4 Monocryl for final skin closure. Steri-Strip sterile dressings placed. Patient will continue to PACU stable condition. Please note spinal cord monitoring was utilized at the procedure no changes noted. I attest to the content of the Intraoperative Record and any orders documented therein. Any exceptions are noted below.
[2020-06-23] MEDS: LORazepam 1 MG/2 ML VIAL IV PRN (17:10)
--- NOTE | 2020-06-23 17:13 | Fluoroscopy Report ---
FL lumbar spine 2-3V CLINICAL HISTORY: L5-S1 DECOMPRESSION/FUSION COMPARISON STUDY: 06/11/2020 FLUOROSCOPY TIME: 18 seconds. NUMBER OF FLUOROSCOPIC IMAGES: 2 FINDINGS: 2 intraoperative fluoroscopic spot images reveal postsurgical changes at L5-S1 discectomy a nd interbody fusion. There are L5 and S1 pedicle screws present. IMPRESSION: Postsurgical changes of an L5-S1 spinal decompression and fusion. ACT 112: Negative or not required by law. Electronically signed by: Rachid Porter M.D. 06/23/2020 5:11 PM
[2020-06-23] MEDS: fentaNYL citrate 100 MCG/2 ML VIAL IV PRN ×3 (17:15→17:25)
--- NOTE | 2020-06-23 17:49 | Anesthesiology Progress Note ---
Date of Service June 23, 2020 Anesthesia Post Procedure Vital Signs Vital Signs: Temp Pulse Pulse Resp BP Pulse Ox 06/23/20 17:40 36.6 C 68 15 118/71 97 06/23/20 17:30 71 14 123/75 98 06/23/20 17:20 61 12 122/78 99 06/23/20 17:10 69 23 111/68 99 06/23/20 17:03 36.7 C 87 28 H 133/83 99 06/23/20 15:00 36.9 C 64 16 128/84 98 06/23/20 07:36 36.8 C 66 16 123/82 98 06/22/20 23:20 36.8 C 70 16 104/63 94 Pain Intensity Back: Pain Intensity: 4 Transfer of Care Handoff Completed per policy Notes Mental Status: alert / awake / arousable Patient Amnestic to Procedure: Yes Nausea / Vomiting: adequately controlled Pain: adequately controlled and improving with treatment Airway Patency, RR, SpO2: stable & adequate BP & HR: stable & adequate Hydration State: stable & adequate Anesthetic Complications: no major complications apparent and Pt Satisfied with anesthetic care
[2020-06-23] MEDS ORDERED: MEPERIDINE HCL 25 MG/ML CARP/VIAL ONE (17:50)
[2020-06-23] MEDS ORDERED: ACETAMINOPHEN 1,000 MG/100 ML VIAL IV PRN (18:01)
[2020-06-23] MEDS ORDERED: METOCLOPRAMIDE HCL INJ 5 MG/ML 2 ML VIAL IV PRN (18:01)
[2020-06-23] MEDS ORDERED: LACTATED RINGER'S 1,000 ML IV SCH (18:01)
[2020-06-23] MEDS ORDERED: ONDANSETRON 4 MG OD TAB PO PRN (18:01)
[2020-06-23] MEDS ORDERED: ACETAMINOPHEN 500 MG TAB PO PRN (18:01)
[2020-06-23] MEDS ORDERED: LORazepam 0.5 MG TAB PO PRN (18:01)
[2020-06-23] MEDS ORDERED: MAGNESIUM HYDROXIDE SUSP 30 ML UDC PO PRN (18:01)
[2020-06-23] MEDS ORDERED: SOD PHOSPHATE/SOD BIPHOSPHATE ENEMA 132 ML BTL PR PRN (18:01)
[2020-06-23] MEDS ORDERED: DO NOT ADMINISTER FLU VACCINE PRN (18:01)
[2020-06-23] MEDS ORDERED: PROMETHAZINE HCL 12.5 MG in SODIUM CHLORIDE 0.9% 50 ML IV PRN (18:01)
[2020-06-23] MEDS ORDERED: FAMOTIDINE 20 MG TAB PO PRN (18:01)
[2020-06-23] MEDS ORDERED: LORazepam 0.5 MG/1 ML VIAL IV PRN (18:01)
[2020-06-23] MEDS ORDERED: bisacodyL 10 MG SUPP PR PRN (18:01)
[2020-06-23] MEDS ORDERED: ALUMINUM/MAGNESIUM SUSP 30 ML UDC PO PRN (18:01)
[2020-06-23] MEDS ORDERED: NALOXONE HCL 0.4 MG/1 ML VIAL/CARP IV PRN (18:01)
[2020-06-23] MEDS ORDERED: DO NOT ADMINISTER PNEUMOCOCCAL VACCINE PRN (18:01)
[2020-06-23] MEDS: DOCUSATE SODIUM/SENNA 50/8.6MG TAB PO SCH (20:01)
[2020-06-23] MEDS: GABAPENTIN 300 MG CAP PO SCH (20:01)
[2020-06-23] MEDS: CEFAZOLIN 1000MG 1,000 MG/7.5 ML SYR IV SCH (22:20)
[2020-06-24] MEDS: MoRPHine SULFATE 2 MG/ML CARP IV PRN ×3 (01:58→22:37)
[2020-06-24 05:32] LABS: Basophils # (auto) 0.01 K/uL (0-0.2); Basophils % (auto) 0.1 %; Hematocrit (blood only) 32.8 % (37-47); Hemoglobin 11.2 g/dL (12.0-16.0); Immature Granulocytes # (auto) 0.02 K/uL (0.00-0.02); Immature Granulocytes % (auto) 0.2 %; Lymphocytes # (auto) 1.17 K/uL (1.2-3.4); Lymphocytes % (auto) 14.4 %; Mean Corpuscular Hemoglobin 31.5 pg (25-34); Mean Corpuscular Hgb Conc 34.1 g/dL (32-36); Mean Corpuscular Volume 92.4 fL (80-100); Mean Platelet Volume 9.5 fL (7.4-10.4); Monocytes # (auto) 0.62 K/uL (0.11-0.59); Monocytes % (auto) 7.6 %; Neutrophils # (auto) 6.29 K/uL (1.4-6.5); Neutrophils % (auto) 77.7 %; Platelet Count 174 K/uL (130-400); RDW Coefficient of Variation 11.7 % (11.5-14.5); RDW Standard Deviation 40.1 fL (36.4-46.3); Red Blood Count 3.55 M/uL (4.2-5.4); White Blood Count 8.11 K/uL (4.8-10.8)
[2020-06-24] MEDS: CEFAZOLIN 1000MG 1,000 MG/7.5 ML SYR IV SCH (05:32)
[2020-06-24] MEDS: POLYETHYLENE (MIRALAX) 17 GM PACK PO SCH ×3 (05:35→17:35)
[2020-06-24 06:01] LABS: Calcium 7.9 mg/dl (8.5-10.1); Creatinine Clr Calc Pharmacy 91.7 ml/min; Est GFR (African American) 124.4; Est GFR (Non-African American) 107.4; Potassium 3.5 mmol/L (3.5-5.1)
[2020-06-24] MEDS: OXYCODONE HCL IR 5 MG TAB (IMMEDIATE RELEASE) PO PRN ×3 (08:08→20:19)
[2020-06-24] MEDS: CITALOPRAM 40 MG TAB PO SCH (08:08)
[2020-06-24] MEDS: dexAMETHasone 8 MG in SYRINGE 0 ML IV SCH (08:09)
[2020-06-24] MEDS: DOCUSATE SODIUM 100 MG CAP PO SCH ×2 (08:09→20:20)
[2020-06-24] MEDS: JUNEL FE PO SCH (08:09)
--- NOTE | 2020-06-24 11:28 | Orthopedic Progress Note ---
Date of Service June 24, 2020 Assessment & Plan (1) Recurrent herniation of lumbar disc: Admission and Anticipated Discharge Date Admission Date: June 21, 2020 This time initiate physical therapy monitor HIPOLITO operatively discharge home in the next few days. Subjective Patient struggling with back pain but leg symptoms markedly improved. Physical Exam Physical Exam: Patient is in the chair at the bedside has good strength testing. Results & Data ([facility]) Vital Signs (Past 12 Hours) Vital Signs Temp Pulse Resp BP Pulse Ox 06/24/20 07:21 36.8 C 73 18 117/72 97 06/24/20 04:01 36.9 C 69 16 113/69 97 06/24/20 00:00 65 17 95
[2020-06-24] MEDS: GABAPENTIN 300 MG CAP PO SCH (20:20)
[2020-06-24] MEDS: DOCUSATE SODIUM/SENNA 50/8.6MG TAB PO SCH (20:20)
[2020-06-24] MEDS: TRAZODONE HCL 50 MG TAB PO PRN (20:29)
[2020-06-25] MEDS: POLYETHYLENE (MIRALAX) 17 GM PACK PO SCH ×2 (04:25→05:05)
[2020-06-25] MEDS: OXYCODONE HCL IR 5 MG TAB (IMMEDIATE RELEASE) PO PRN (05:06)
[2020-06-25] MEDS: JUNEL FE PO SCH (07:23)
[2020-06-25] MEDS: CITALOPRAM 40 MG TAB PO SCH (07:24)
[2020-06-25] MEDS: DOCUSATE SODIUM 100 MG CAP PO SCH (07:24)
[2020-06-25] MEDS ORDERED: DEXAMETHASONE SOD PHOSPHATE 4 MG in SYRINGE 0 ML IV SCH (09:00)
--- NOTE | 2020-06-25 09:58 | Discharge Summary ---
Date of Service June 25, 2020 Admission HPI Per Admitting Provider This is a 40-year-old female well-known to me that presents with marked increase in back and left leg pain. She believes the symptoms began late Tuesday progressed through and this morning became so severe she was unable to tolerate the pain and subsequently to the emergency room. She is status post lumbar laminotomy L5-S1 on the left approximately 2 weeks ago. She done nicely postoperatively with resolution of her symptoms until this recent event. MRI obtained this morning the emergency room does demonstrate a massive recurrent disc herniation L5-S1 the left with significant encroachment of the traversing nerve roots. Principal Diagnosis Recurrent lumbar disc condition L5-S1 Discharge Data Allergies Allergy/AdvReac Type Severity Reaction Status Date / Time hydromorphone AdvReac Mild Chest Pain Verified 06/22/20 22:02 Consultations 06/21/20 10:41 ED Decision to Admit Stat 06/21/20 12:24 Consult Anesthesiology Routine 06/23/20 18:01 Consult Case Management - Discharge Planning Routine Procedures Performed Operation Date: 06/23/20 13:25 Actual Procedures p L5-S1 Decompression and Fusion with Spinal Cord Monitoring, Application of Bone Morphogenetic Protein, Application of Interbody Cage(Not Applicable) - Hira Love, Ordered Studies 06/21/20 08:23 MR lumbar spine wo con Stat 06/23/20 13:00 FL fluoroscopy <1hr Routine FL lumbar spine 2-3V Routine Hospital Course (1) Recurrent herniation of lumbar disc: Patient was admitted with recurrent leg symptoms and the diagnosis of recurrent disc herniation L5-S1. Pain was controlled with IV narcotics and steroids. She did undergo revision decompression fusion L5-S1 on Tuesday tolerates well was taken to orthopedic for postoperative. Postop day 1 she was up and walking on postop day 2 good strength testing pain controlled HIPOLITO drain decreasing probably. Subsequent discharge home. Discharge orders instructions from the chart for further review. Total Time Total Time Spent Total Time Spent (In Minutes): 20 minutes Discharge Plan Discharge Items Patient Disposition: Home - Self-Care Reason For Visit: recurrent lumbar disc condition Discharge Diagnosis: Recurrent lumbar disc herniation with radiculopathy Activity: As commented below Non-emergency contact: Primary Care Provider Call non-emergency contact if: you have any medication questions Follow-up/Referrals: Francisco Javier Calvo MD [Primary Care Provider] - Diet: Regular Addtl Attending Provider Instructions: ACTIVITY RECOMMENDATIONS: SELF CARE INSTRUCTIONS AFTER THORACIC/LUMBAR FUSIONS 1. You may walk to your tolerance. It is good exercise for your legs and back. Expect some back and intermittent leg aches and pains. 2. You may perform "counter-top" level activities (make a sandwich, scott with a project, etc.). 3. No bending or lifting of more than 10 pounds or back twisting of any nature (roll like a log when turning in bed). 4. You may ride in a car for 20-30 minutes at a time. No driving until after your first visit with your doctor. 5. Frequent changes of position and restricting sitting to 30 minutes at a time will help limit the amount of back spasms and stiffness you may experience. 6. You may discontinue the use of ambulatory aids (cane, crutches, etc.) once your strength and confidence allow. 7. You may parking technician the shower and let water strike your incision when you arrive home at least once daily. Do not take a tub bath, sit in a hot tub or go into a swimming pool until after your first recheck in the office. SPECIAL CARE INSTRUCTIONS: VERY IMPORTANT TO READ AND REVIEW A. Your surgical incision has been closed with a cosmetic suture under the skin that will dissolve in about 6 weeks. In 14 days, you can use a pair of clean scissors and cut the suture that is left outside of the skin at the ends of your incision. 1. The small skin tapes can be removed 7 days after surgery if they have not fallen off by that point. 2. You may keep the wound open to air as much as possible to promote healing after post-op day number 5 unless told otherwise by your doctor. 3. If you think the wound looks like it is becoming infected (redness or worsening drainage) and/or you are experiencing fever, chill or worsening back pain and muscle spasms, contact the office so that we may evaluate you as soon as possible. B. Complications are uncommon, but please contact us if you have any signs or symptoms of: 1. wound infection (fever higher than 102.5 degrees F, redness, separation of wound, drainage, or increasing pain from the incision) 2. blood clots in legs (pain, swelling, redness and warmth in legs) 3. urinary tract infection (fever higher than 102.5 degrees F, burning upon urination or increased frequency of urination) 4. nerve problems (inability to walk on your toes or heels, numbness, loss of bowel or bladder control) 5. any other symptoms that concern you C. Please call the office at if you have any concerns or questions about your operation or recovery. D. No smoking! Smoking drastically decreases the chance of a solid fusion. E. Do not take any anti-inflammatory medications (Indocin, Advil, Motrin, Aspirin, Naprosyn, etc.) as these may inhibit the chance of a solid fusion. Tylenol is okay to take for pain. MANAGING PAIN AFTER SPINAL SURGERY 1. Narcotic medication is intended for short-term use and will be provided for surgical pain. Surgical pain usually lasts for a period of 4-6 weeks. Narcotic medication includes Percocet, Vicodin, Darvocet, Tylenol #3 or Lortab. 2. Longer-term pain is more appropriately treated with non-narcotic medication such as Tylenol ES. 3. Muscle spasm is not appropriately treated with narcotics. Muscle relaxers such as Soma, Flexeril or Skelaxin can be used along with Tylenol ES. 4. Remember that we all live with some "aches and pains". This is not unusual or uncommon after an injury or as we get older. a. Back pain is expected and may include muscle spasms for 4 to 6 weeks after surgery. The pain should gradually improve. If the pain worsens for no apparent reason, please contact the office. b. Intermittent leg pain may also be experienced and should not be concerned about unless it worsens for no apparent reason. If so, please contact the office. 5. We will provide appropriate medication within the normal guidelines of their prescribed use. We will also be very cautious and aware of potential abuse and extended duration of patients' medication needs. a. Pain medications are for your comfort and to assist with sleep and rest so that the tissue can heal. They are not provided in order to return to normal activity and should not be used through the day. To do so or worsening pain at night can result from ongoing tissue damage and development of tolerance to the prescribed medicine. 6. Please allow 2-3 days to process refills. Prescriptions will not be mailed but must be picked up at the office. FOLLOW UP VISIT: Keep your scheduled follow-up appointment. Any questions, please call the office at . Pending Studies at Discharge: No Stand-Alone Forms: My [facility], Smoking Cessation Medications and DC Order Prescriptions: New oxycodone 5 mg tablet 5 mg PO Q6H PRN (Reason: pain, severe) Qty: 20 RF: 0 tramadol 50 mg tablet 50 mg PO Q6H PRN (Reason: pain, moderate) Qty: 20 RF: 0 Continued loratadine-pseudoephedrine [Loratadine-D] 10-240 mg tablet extended release 24 hr 1 tab PO DAILY PRN (Reason: allergy symptoms) Qty: 30 RF: 5 norethindrone-e.estradiol-iron [Microgestin FE 10/15 ()] 1 mg-20 mcg (21)/75 mg (7) tablet 1 tab PO QAM Qty: 28 RF: 11 trazodone 50 mg Tablet 1.5 tab PO HS PRN (Reason: Sleep) RF: 0 citalopram 40 mg tablet 40 mg PO DAILY RF: 0 gabapentin 300 mg Capsule 300 mg PO HS RF: 0 oxycodone 5 mg tablet 5 mg PO Q6H PRN (Reason: pain, severe) Qty: 20 RF: 0 Discharge Orders: Discharge Order (Routine); Ordered 06/25/20 Ordered By: Hira Love Admission Data Admit Date/Time: 06/21/20 12:05 Attending Provider: Hira Love Admit Provider: Hira Love Primary Care Provider: Francisco Javier Calvo V. Other Providers: Hira Love ; Shay Bennett
== END 2020-06-25 11:45 | disposition home or self-care (01) | DRG 455 ==
LOC: ED 08:03 → 3E 11:53

== ENCOUNTER 2025-08-05 08:10 | Inpatient (IN) ==
--- NOTE | 2025-08-05 08:44 | Emergency Department Note ---
Impression & Plan Depression with suicidal ideation, Anxiety, Urinary tract infection ED Provider Note NAME: DIONISIO SANCHEZ AGE: 45 SEX: F : 1980 ARRIVES VIA: Walk-In INFORMANT: Patient, ED PROVIDER(S): Brenden Nails DO CHIEF COMPLAINT: Mental health evaluation HPI: The patient is a 45-year-old female who presented to the emergency department for mental health evaluation. The patient does have a history of depression and suicidal ideation in the past. She was admitted in the [address] for inpatient mental health treatment. The patient presented today with family for an evaluation. The patient's been having thoughts of suicidal ideation with a plan to overdose on her medications. She is very tearful. She is very concerned about her safety. ROS: See above HPI for pertinent positives & negatives. A total of 10 systems reviewed and were otherwise negative. PAST MEDICAL HISTORY: See Below PAST SURGICAL HISTORY: See Below FAMILY HISTORY: See Below SOCIAL HISTORY: See Below HOME MEDICATIONS: See Below ALLERGIES: See Below VITALS: See Below PHYSICAL EXAMINATION: GENERAL: The patient is awake and alert. She is somewhat anxious appearing. EYES: The conjunctivae are clear. The pupils are round and reactive. EARS, NOSE, MOUTH AND THROAT: The nose is without any evidence of any deformity. NECK: The neck is nontender and supple. RESPIRATORY: Normal respiratory effort is noted there is no evidence of wheezing rhonchi or rales CARDIOVASCULAR: Regular rate and rhythm noted there no murmurs rubs or gallops normal S1 normal S2. GASTROINTESTINAL: The abdomen is soft. Abdomen is nontender. MUSCULOSKELETAL/EXTREMITIES: There is no evidence of gross deformity full range of motion is noted in the hips and shoulders. SKIN: There is no obvious evidence of any rash. There are no petechiae, pallor or cyanosis noted. NEUROLOGIC: Patient is awake alert and oriented x3. Gait was steady. PSYCH: The patient makes good eye contact mostly evaluation. The patient's affect is flat. She is very tearful. She continues to admit to suicidal ideation with a plan to overdose on her medications. MEDICAL DECISION MAKING: The patient is a 45-year-old female who presented to the emergency department for an evaluation of mental health issues. The patient has a history of anxiety. She has been getting worse recently. The patient presented to the emergency department with her parents. The patient was medically cleared in the emergency department. She was started on a course of an antibiotic for presumed urinary tract infection noted on urinalysis. The patient was evaluated by the mental health outpatient case manager. She was felt to be a good candidate for inpatient management. She was evaluated by the delegate from the [facility]. Ultimately she was accepted to their unit for inpatient management. 201 paperwork was signed by myself. Triage Nursing notes reviewed. Prior medical records reviewed Vital Signs: reviewed and remarkable for no significant abnormalities Differential diagnosis: Mood disorder, infection, hypoglycemia, electrolyte abnormalities, cardiac sources, intracerebral event, toxicologic, trauma, neurologic, as well as other pathologies. ER treatment provided: See below Diagnostics interpreted by me: ECG: none Laboratory studies: As stated above and show below. Imaging studies: See below. Consultation(s): I discussed this case with the emergency department mental-health outpatient case manager. Past Med/Surg History Problem List (Updated 08/05/25 @ 15:32 by Brenden Nails DO) Urinary tract infection (Acute) Anxiety (Acute) Depression with suicidal ideation (Acute) Nasal polyposis Chronic sinusitis Recurrent herniation of lumbar disc (Acute) Low back pain (Acute) Allergy EKG abnormalities Narrowing of lumbar intervertebral disc space Anxiety and depression (Acute) Left lumbar radiculopathy Medical History History of hemorrhoids Blood in stool Abdominal pain Anxiety Depression Surgical History History of back surgery Microdiscectomy L5-S1, 06/11/20 Spinal fusion L5-S1 06/23/20. History of colonoscopy History of bunionectomy of right great toe History of bunionectomy of left great toe History of open reduction and internal fixation (ORIF) procedure left shoulder--hardware in place History of wisdom tooth extraction Family History Grandmother (Maternal) Family history of diabetes mellitus Diabetes Grandfather (Paternal) Family hx of colon cancer Uncle Family hx of colon cancer Aunt Family hx of colon cancer Father Depression Pure hypercholesterolemia Mother Osteoporosis Pure hypercholesterolemia Other No family history of adverse response to anesthesia No family history of bleeding disorder Denies family history of Ovarian cancer Breast cancer Uterine cancer Social History Second Hand Exposure: No; Do You Dip or Chew Tobacco: No; Hx Alcohol Use: Yes Alcohol type: wine Alcohol Intake Frequency Comment: occasional Hx Substance Use: No Preferred Language: Faroese Communication Ability: Effective Visual Impairment: No Limitations Hearing Ability: Normal Airplane Captain Required: No Beliefs That Will Affect Care: None marital status: Current Living Situation: Family Current Living Situation Comment: Lives with 2 daughters current occupational status: employed 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 Feels Safe at Home: Yes Childhood Exposure to Second-Hand Smoke: No Gender Identity: Female Assistive Devices: Glasses Allergies Allergies Allergy/AdvReac Type Severity Reaction Status Date / Time hydromorphone AdvReac Mild Chest Pain Verified 08/05/25 08:51 Home Meds Home Medications Medication Instructions Recorded Confirmed citalopram 10 mg tablet 40 mg PO DAILY 05/20/25 08/05/25 aripiprazole 10 mg tablet 7.5 mg PO DAILY 05/28/25 08/05/25 folic acid 1 mg tablet 1 mg PO DAILY 05/28/25 08/05/25 mirtazapine 7.5 mg tablet 7.5 mg PO HS 05/28/25 08/05/25 trazodone 50 mg tablet 75 mg PO HS PRN Sleep 05/28/25 08/05/25 Microgestin FE 10/15 (28) 1 tab PO 1XD 08/05/25 08/05/25 buspirone 15 mg tablet 15 mg PO BID 08/05/25 08/05/25 clonazepam 0.5 mg tablet 0.5 mg PO BID PRN Anxiety 08/05/25 08/05/25 Previous Rx's Medication Instructions Recorded dupilumab 300 mg/2 mL subcutaneous See Rx Instructions .Route 04/01/25 syringe (Dupixent) .COMPLEX #4 mL Results & Data (ED) Vital Signs Vital Signs - 24 hr 08/05/25 08:17 Temperature 36.8 C Temperature Source Temporal Artery Scan Pulse Rate 83 Respiratory Rate 18 Respiratory Effort / Characteristics Non-Labored Respiratory Depth Normal Blood Pressure 127/86 Blood Pressure Mean 99 Pulse Oximetry 100 Oxygen Delivery Method Room Air Sepsis Recent Fever Within 48 Hours No Sepsis New/Unexplained Change in Mental Status No Sepsis Action Taken by Nursing No Action Required Home Medications Current Medication List: was personally reviewed by me Laboratory Data Attestation: I reviewed the patient's lab results. 08/05/25 08:43 08/05/25 08:43 Lab Results 08/05/25 08/05/25 Range/Units 08:25 08:43 WBC 5.49 (4.8-10.8) K/ul RBC 4.35 (4.20-5.40) M/uL Hgb 13.7 (12.0-16.0) g/dl Hct 39.1 (37.0-47.0) % MCV 89.9 (80.0-100.0) fL MCH 31.5 (25.0-34.0) pg MCHC 35.0 (32.0-36.0) g/dL RDW Std Deviation 35.8 L (36.4-46.3) fL RDW Coeff of Lidia 10.9 L (11.5-14.5) % Plt Count 208 (130-400) K/uL MPV 9.9 (9.4-12.4) fL Immature Gran % (Auto) 0.2 % Neut % (Auto) 77.2 % Lymph % (Auto) 16.2 % [place] % (Auto) 5.5 % Eos % (Auto) 0.2 % Baso % (Auto) 0.7 % Neut # (Auto) 4.24 (1.40-6.50) K/uL Lymph # (Auto) 0.89 L (1.20-3.40) K/uL [place] # (Auto) 0.30 (0.11-0.59) K/uL Eos # (Auto) 0.01 (0.00-0.50) K/uL Baso # (Auto) 0.04 (0.00-0.20) K/uL Immature Gran # (Auto) 0.01 (0.01-0.20) K/uL Sodium 135 L (136-145) mmol/L Potassium 4.4 (3.5-5.1) mmol/L Chloride 101 (98-107) mmol/L Carbon Dioxide 24 (21-32) mmol/L Anion Gap 10 (3-11) BUN 12 (6-23) mg/dl Creatinine 0.78 (0.6-1.2) mg/dl Est Cr Clr Drug Dosing 70.5 ml/min eGFR 94.22 BUN/Creatinine Ratio 15.4 (10-20) Glucose 89 (70-99(Fasting)) mg/dl Calcium 9.4 (8.6-10.3) mg/dl Total Bilirubin 0.5 (0.2-1.0) mg/dl AST 9 L (13-39) U/L ALT 7 (7-52) U/L Alkaline Phosphatase 38 (34-104) U/L Total Protein 7.6 (6.0-8.3) gm/dl Albumin 4.3 (3.4-5.0) gm/dl Globulin 3.3 (2.5-4.0) gm/dl Albumin/Globulin Ratio 1.3 (0.9-2) TSH 2.851 (0.300-4.500) uIu/ml HCG, Qual Negative (Negative) Urine Color Yellow Urine Appearance Clear (Clear) Urine pH 5.5 (4.5-7.5) Ur Specific Calvin 1.019 (1.000-1.030) Urine Protein Negative (Negative) Urine Glucose (UA) Negative (Negative) Urine Ketones 1+ H (Negative) Urine Blood Negative (Negative) Urine Nitrite Negative (Negative) Urine Bilirubin Negative (Negative) Urine Urobilinogen Negative (Negative) Ur Leukocyte Esterase 2+ H (Negative) Urine WBC (Auto) 21-50 H (0-5) /hpf Urine RBC (Auto) 0-2 (0-2) /hpf U Hyaline Cast (Auto) 0-2 (0-2) /lpf U Epithel Cells (Auto) 0-2 (0-2) /hpf Urine Bacteria (Auto) 1+ H (None Seen) Urine Comment Salicylates < 3.0 L (3.0-30) mg/dl Urine Opiates Screen Neg (Neg) Ur Methadone, Qual Neg (Neg) Urine Fentanyl Screen Neg (Neg) Acetaminophen < 3 L (10-30) ug/ml Urine Barbiturates Neg (Neg) Ur Phencyclidine (PCP) Neg (Neg) U Amphetamin/Meth Scrn Neg (Neg) MDMA (Ecstasy) Screen Pos H (Neg) U Benzodiazepines Scrn Neg (Neg) Ur Cocaine Metabolite Neg (Neg) U Marijuana (THC) Screen Neg (Neg) Ethyl Alcohol mg/dL < 10.0 (<10.0) mg/dl SARS-CoV-2, RNA, NAAT NEGATIVE (NEGATIVE) Administered Medications Discontinued Medications Cefdinir (Cefdinir 300 Mg Cap) 300 mg PO ONE STA; Protocol Stop: 08/05/25 10:37 Last Admin: 08/05/25 10:48 Dose: 300 mg Documented By: GREY Discharge Plan Visit Data Chief Complaint: Mental Health Evaluation Stated Complaint: SEVERE ANXIETY/DEPRESSION/SUICIDAL THOUGHTS ED Provider: Brenden Nails Discharge Problem: Depression with suicidal ideation, Anxiety, Urinary tract infection Patient Disposition: Admitted As Inpatient Condition: Good Discharge Instructions Interventions: ED Discharge Assessment Last Done: 08/05/25 13:14
[2025-08-05 09:07] LABS: Appearance Urine Clear (Clear); Bacteria Urine Automated 1+ (None Seen); Cast Urine Automated 0-2 /lpf (0-2); Epithelial Cell Urine Auto 0-2 /hpf (0-2); Glucose Urine UA Negative (Negative); RBC Urine Automated 0-2 /hpf (0-2); WBC Urine Automated 21-50 /hpf (0-5)
[2025-08-05 09:23] LABS: Hematocrit (blood only) 39.1 % (37.0-47.0); Hemoglobin 13.7 g/dl (12.0-16.0); Immature Granulocytes # (auto) 0.01 K/uL (0.01-0.20); Immature Granulocytes % (auto) 0.2 %; Mean Corpuscular Hemoglobin 31.5 pg (25.0-34.0); Mean Corpuscular Volume 89.9 fL (80.0-100.0); Platelet Count 208 K/uL (130-400); RDW Standard Deviation 35.8 fL (36.4-46.3); Red Blood Count 4.35 M/uL (4.20-5.40); White Blood Count 5.49 K/ul (4.8-10.8)
[2025-08-05 09:41] LABS: Pregnancy Test, Serum Negative (Negative)
[2025-08-05 09:46] LABS: Amphetamines+Metham, Urine Neg (Neg); MDMA (Ecstacy), Urine Pos (Neg); Marijuana, Urine Neg (Neg)
[2025-08-05 10:13] LABS: Albumin Level 4.3 gm/dl (3.4-5.0); Anion Gap 10.0 (3-11); Bilirubin,Total 0.5 mg/dl (0.2-1.0); Calcium 9.4 mg/dl (8.6-10.3); Carbon Dioxide 24.0 mmol/L (21-32); Chloride 101.0 mmol/L (98-107); Potassium 4.4 mmol/L (3.5-5.1); Sodium 135.0 mmol/L (136-145); Thyroid Stimulating Hormone 2.851 uIu/ml (0.300-4.500)
[2025-08-05 10:21] LABS: Alanine Aminotransferase 7.0 U/L (7-52); Albumin Globulin Ratio 1.3 (0.9-2); Alkaline Phosphatase 38.0 U/L (34-104); Creatinine Clr Calc Pharmacy 70.5 ml/min; Globulin 3.3 gm/dl (2.5-4.0); Glucose 89.0 mg/dl (70-99(Fasting)); Total Protein 7.6 gm/dl (6.0-8.3)
[2025-08-05 10:30] LABS: Acetaminophen < 3 ug/ml (10-30); Salicylate < 3.0 mg/dl (3.0-30)
[2025-08-05 10:35] LABS: Blood Urea Nitrogen 12.0 mg/dl (6-23)
[2025-08-05] MEDS: CEFDINIR 300 MG CAP PO STA (10:48)
[2025-08-05] MEDS ORDERED: ACETAMINOPHEN 325 MG TAB PO PRN (14:10)
[2025-08-05] MEDS ORDERED: MAGNESIUM HYDROXIDE SUSP 30 ML UDC PO PRN (14:10)
[2025-08-05] MEDS ORDERED: BISMUTH SUBSALICYLATE 262 MG CHEW PO PRN (14:10)
[2025-08-05] MEDS ORDERED: ALUMINUM/MAGNESIUM SUSP 30 ML UDC PO PRN (14:10)
[2025-08-05] MEDS ORDERED: SODIUM CHLORIDE 0.65% NA SOLN 45 ML (OCEAN) PRN (14:10)
[2025-08-05] MEDS: GABAPENTIN 300 MG CAP PO PRN (18:56)
[2025-08-05] MEDS: MIRTAZAPINE TAB 15 MG TAB PO SCH (21:30)
[2025-08-05] MEDS: busPIRone 15 MG TAB PO SCH (21:30)
[2025-08-06] MEDS: ARIPiprazole 15 MG TAB PO SCH (07:51)
[2025-08-06] MEDS: CITALOPRAM 40 MG TAB PO SCH (07:54)
[2025-08-06] MEDS: FOLIC ACID 1 MG TAB PO SCH (07:54)
--- NOTE | 2025-08-06 08:56 | History & Physical ---
Date of Service August 06, 2025 Impression / Recommendations Impression DIONISIO SANCHEZ is a 45-year-old F who currently lives in [place] with her children, has a history of depression, anxiety, borderline personality disorder, and was admitted on 08/05/25 12:51 on a 201 voluntary commitment for anxiety and depression with SI with plan of overdose. Diagnostically consistent with major depressive disorder, recurrent episode, severe as well as generalized anxiety disorder with panic attacks and suspected borderline personality disorder in the context of ineffective long-term SSRI therapy and ongoing psychosocial stressors at work. Discussed medication treatment options in detail. Reviewed risks, benefits and alternatives. She consents to cross-taper from to citalopram to venlafaxine as SNRI therapy may be more effective given previous SSRI trials. She consents to increasing mirtazapine to further target insomnia anxiety and depression. She consents to continuing Abilify for off-label use for depression augmentation and anxiety with long-term goal of tapering to discontinuation if venlafaxine proves effective. Will initiate propranolol for off-label use for anxiety. Will continue BuSpar and consider further titration of the dose for anxiety. Will continue to have Klonopin available as needed as she has been on this for many years and is no longer using alcohol. Also discussed having gabapentin available for as needed use for off-label anxiety/panic attack symptoms and Vistaril available for anxiety. Reviewed side effects including but not limited to GI, headaches, night sweats, sexual side effects, serotonin syndrome with citalopram and venlafaxine; Dizziness with BuSpar; Low BP/syncope with propranolol; Sedation/addiction potential/cognitive effects with clonazepam; Respiratory risk/dependency risk with gabapentin; movement (TD, NMS), cardiac ( QTc prolongation), and metabolic (stroke, insulin resistance) and necessity for fasting lipid and glucose labwork and AIMS done with score of 0 with Abilify. Psychoeducation provided regarding major depressive disorder generalized anxiety disorder and borderline personality disorder. Discussed DBT. Overall I spent a total of 80 minutes for this admission including review of chart records, review of labwork, direct evaluation of the patient, counseling the patient, ordering medication, risk assessment, discussion with the psychiatric liason RN and documentation in the electronic health record. (1) Depression with suicidal ideation: (2) MDD (major depressive disorder), recurrent episode, severe: (3) Generalized anxiety disorder with panic attacks: (4) Borderline personality disorder: Plan 08/06/2025: The patient was admitted to the [facility] on q15 min checks (behavioral with suicide precautions) for safety. The patient will participate in group, recreational, and milieu therapies and will be offered additional individual and family sessions as clinically appropriate. -Start cross-taper from citalopram to Effexor ER * Decrease citalopram from 40mg to 20mg tomorrow AM * Start Effexor ER 37.5mg daily -Increase mirtazapine from 7.5mg to 15mg HS -Discontinue trazodone -Continue Abilify 7.5mg daily -Continue Buspar 15mg BID with potential plan to titrate further in coming days -Start propranolol 10mg TID -Continue Klonopin 0.5mg BID prn for panic attacks -Start gabapentin 300mg TID prn for anxiety -Symptom questionnaires provided -Fasting lipid panel, HbA1c and Vit D ordered for tomorrow AM Inventory Assets Strengths: supportive relationships, willing to get treatment Needs: safety and stabilization, medication adjustment, additional coping skills, increased outpatient services Suicide Risk Level Suicide Risk Level: High-Moderate (q15 min suicide checks) (depression, anxiety and SI with plan but feels safe in the hospital and feels able to ask for help if she feels unsafe or needs additional support) Risk Factors Assessment Male: No : Yes Do You Have Access To A Gun?: No Health Problems: No Mental Health Diagnoses: Yes Substance Use Disorders: No Previous Attempt: No Family History of Suicide: No Previous Psychiatric Hospitalization: Yes Hopelessness: Yes Protective Factors Assessment Baptism Beliefs: Yes : No Responsible for Young Children: Yes Employed: Yes Stable Relationships: Yes Supportive Family: Yes Good Rapport with Provider: Yes Psychiatric History Identifying Data DIONISIO SANCHEZ is a 45-year-old F who currently lives in [place] with her children, has a history of depression, anxiety, borderline personality disorder, and was admitted on 08/05/25 12:51 on a 201 voluntary commitment for anxiety and depression with SI with plan of overdose. Chief Complaint "I'm so stressed out, I'm sorry". History of Present Illness She presents for psychiatric admission for worsening anxiety and depression and SI with plan of overdosing on trazodone in the context of multiple psychosocial stressors including work and parenting. She feels unable to manage her "life, my work, my kids". Her current symptoms began approximately in April shortly before her inpatient psychiatric hospitalization at [facility]. Following her hospitalization at [facility] in April she experienced a brief period of improvement lasting a few weeks before entering what she describes as "total downward spiral" due to ongoing work stress. She reports her anxiety has become crippling characterized by constant racing thoughts that she cannot stop. She describes her mind is continuously ruminating on work related concerns, specifically fears about making mistakes, losing her job, losing her house, and being unable to care for her children. Her anxiety also manifest physically with panic attacks occurring daily. Her depression presents with significant functional impairment, including extreme difficulty getting out of bed, low motivation and inability to provide meals and care for her children as she previously did. Her parents have been staying with her over recent weeks due to her level of functional impairment. She reports feeling guilty about not being a better and more involved parent due to how the depression is of affecting her functioning. She endorses feelings of helplessness and hopelessness describing that she continues to wish she was not alive. She also endorses cognitive difficulties and poor concentration. She has lost weight due to poor appetite and reports chronic sleep difficulties with both trouble falling asleep and staying asleep often waking with panicky feelings. She also has prominent anhedonia. She has been able to find activities that previously brought her jay such as spending time with her children and being outdoors due to her racing thoughts. Suicidal thoughts have been present for approximately 2 months worsening about a month ago when she began specifically thinking about taking pills. She came to the hospital now because she felt unable to manage her life work her children and her racing thoughts would not stop. She expresses concern that everything will be the same when she leaves the hospital and reports feeling anxious when hearing about other patients who seem to have their lives together. She identifies work stress as the primary trigger for her symptoms describing "everything about work" as problematic. She works in [employer] at [employer] and has constant worry about making mistakes which then spirals into catastrophic thinking about job loss and financial ruin. Parenting stress is also a factor and despite her parents being present to help with her daughter she reports still being unable to manage her responsibilities. She stopped drinking alcohol completely a couple of months ago. During the summer she was consuming 4-6 drinks per day for about 2 months which she felt was problematic. She identifies target symptoms of: "getting rid of the anxiety, the crippling racing thoughts, wanting to be alive again". She is current prescribed: abilify 7.5mg daily (had been higher, was being lowered to discontinue due to concerns about long-term concerns for muscle movements), buspar 15mg BID (started about 2 weeks ago), mirtazapine 7.5mg HS (since April), trazodone 75mg HS (had been on this a long time but not helpful), citalopram 40mg (many years), Klonopin 0.5mg BID prn (has been on this off and on for years). Psychiatric ROS notable for no current nor history of symptoms of blake, OCD. Some possible paranoia and psychosis in April but no symptoms currently. PTSD history. Eating disorder in adolescence. No history of self-harm. Past Psychiatric History Current Psychiatric Diagnosis: Anxiety, Depression Outpatient Services: -[facility] private [facility] Previous Psych Admissions: [facility] April 2025 [facility] 2012 Do You Have Access To A Gun?: No History of Previous Suicide Attempt: No Past Medication Trials: Ambien-insomnia in 2012 Sertraline Past Head Trauma/Neuro History History of Concussion/Seizure: No Allergies Allergy/AdvReac Type Severity Reaction Status Date / Time hydromorphone AdvReac Mild Chest Pain Verified 08/05/25 08:51 Home Medications Medication Instructions Recorded Confirmed Type dupilumab 300 mg/2 mL subcutaneous See Rx Instructions .Route 04/01/25 08/05/25 Rx syringe ([facility]ent[facility]ix[facility]) .COMPLEX #4 mL citalopram 10 mg tablet 40 mg PO DAILY 05/20/25 08/05/25 History aripiprazole 10 mg tablet 7.5 mg PO DAILY 05/28/25 08/05/25 History folic acid 1 mg tablet 1 mg PO DAILY 05/28/25 08/05/25 History mirtazapine 7.5 mg tablet 7.5 mg PO HS 05/28/25 08/05/25 History trazodone 50 mg tablet 75 mg PO HS PRN Sleep 05/28/25 08/05/25 History Microgestin FE 10/15 (28) 1 tab PO 1XD 08/05/25 08/05/25 History buspirone 15 mg tablet 15 mg PO BID 08/05/25 08/05/25 History clonazepam 0.5 mg tablet 0.5 mg PO BID PRN Anxiety 08/05/25 08/05/25 History Family History Family History of: Depression and Anxiety Family Mental Health History Comment: Father, Grandmother, Aunts Alcohol History Hx of Alcohol Use Over the Past 12 Months: Yes (per outside records; recent ETOH over use) this summer had been drinking more 4-6 drinks per day, she did feel that her use was problematic so she stopped drinking in April. No alcohol use since that time. 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) Marital Status: Single (romantic relationship since September ) Number Of Children: 2 Beliefs That Will Affect Care: None Current Legal Problems: No Hx Legal Problems: No Hx Traumatic Life Events: Yes Patient History Medical History History of hemorrhoids Blood in stool Abdominal pain Anxiety Depression Surgical History History of back surgery Microdiscectomy L5-S1, 06/11/20 Spinal fusion L5-S1 06/23/20. History of colonoscopy History of bunionectomy of right great toe History of bunionectomy of left great toe History of open reduction and internal fixation (ORIF) procedure left shoulder--hardware in place History of wisdom tooth extraction Family History Grandmother (Maternal) Family history of diabetes mellitus Diabetes Grandfather (Paternal) Family hx of colon cancer Uncle Family hx of colon cancer Aunt Family hx of colon cancer Father Depression Pure hypercholesterolemia Mother Osteoporosis Pure hypercholesterolemia Other No family history of adverse response to anesthesia No family history of bleeding disorder Denies family history of Ovarian cancer Breast cancer Uterine cancer Social History Second Hand Exposure: No; Do You Dip or Chew Tobacco: No; Hx Alcohol Use: Yes Alcohol type: wine Alcohol Intake Frequency Comment: occasional Hx Substance Use: No Preferred Language: Czech Communication Ability: Effective Visual Impairment: No Limitations Hearing Ability: Normal Porter Bath Required: No Beliefs That Will Affect Care: None marital status: Current Living Situation: Family Current Living Situation Comment: Lives with 2 daughters current occupational status: employed 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 Feels Safe at Home: Yes Childhood Exposure to Second-Hand Smoke: No Gender Identity: Female Assistive Devices: Glasses Review of Systems Review of Systems: All systems reviewed & are unremarkable except as noted in HPI & below Physical Exam Psychiatric: Orientation: alert and oriented x 3 Apperance: appropriately dressed and appropriately groomed Eye Contact: good eye contact Motor Behavior: no abnormal motor movements Speech: normal rate/rhythm/volume of speech Affect: + depressed affect, + anxious affect and + constricted affect Mood: + depressed mood and + anxious mood Thought Process: + perseveration Thought Content: + preoccupation, + cognitive distortions and + hopelessness Suicidal Thoughts: denies suicidal intent; + reports suicidal thoughts and + reports suicidal plan (none for hospital but to overdose outside the hospital) Homicidal Thoughts: denies homicidal thoughts Hallucinations: no auditory hallucinations and no visual hallucinations Cognition: recent memory grossly intact, remote memory grossly intact, attention grossly intact and language grossly intact Estimated Intelligence: consistent with education level Insight: + fair insight Judgment: + fair judgement Vital Signs (Past 24 Hours): Last Vital Signs Temp 36.6 C 08/06/25 06:00 Pulse 83 08/05/25 14:38 Resp 16 08/05/25 14:38 BP 111/77 08/06/25 06:44 Pulse Ox 95 08/06/25 06:00 O2 Del Method Room Air 08/06/25 06:00 Exam Statement: A physical exam was performed in the ED by Dr. Nails for the purposes of medical clearance. I accept that physical as correct and adequate for the purposes of the inpatient physical exam. Results & Data ([facility]) Laboratory Results Laboratory Results - last 24 hr 08/05/25 08/05/25 08:25 08:43 WBC 5.49 RBC 4.35 Hgb 13.7 Hct 39.1 MCV 89.9 MCH 31.5 MCHC 35.0 RDW Std Deviation 35.8 L RDW Coeff of Lidia 10.9 L Plt Count 208 MPV 9.9 Immature Gran % (Auto) 0.2 Neut % (Auto) 77.2 Lymph % (Auto) 16.2 [place] % (Auto) 5.5 Eos % (Auto) 0.2 Baso % (Auto) 0.7 Neut # (Auto) 4.24 Lymph # (Auto) 0.89 L [place] # (Auto) 0.30 Eos # (Auto) 0.01 Baso # (Auto) 0.04 Immature Gran # (Auto) 0.01 Sodium 135 L Potassium 4.4 Chloride 101 Carbon Dioxide 24 Anion Gap 10 BUN 12 Creatinine 0.78 Est Cr Clr Drug Dosing 70.5 eGFR 94.22 BUN/Creatinine Ratio 15.4 Glucose 89 Calcium 9.4 Total Bilirubin 0.5 AST 9 L ALT 7 Alkaline Phosphatase 38 Total Protein 7.6 Albumin 4.3 Globulin 3.3 Albumin/Globulin Ratio 1.3 TSH 2.851 HCG, Qual Negative Urine Color Yellow Urine Appearance Clear Urine pH 5.5 Ur Specific [place] 1.019 Urine Protein Negative Urine Glucose (UA) Negative Urine Ketones 1+ H Urine Blood Negative Urine Nitrite Negative Urine Bilirubin Negative Urine Urobilinogen Negative Ur Leukocyte Esterase 2+ H Urine WBC (Auto) 21-50 H Urine RBC (Auto) 0-2 U Hyaline Cast (Auto) 0-2 U Epithel Cells (Auto) 0-2 Urine Bacteria (Auto) 1+ H Urine Comment Salicylates < 3.0 L Urine Opiates Screen Neg Ur Methadone, Qual Neg Urine Fentanyl Screen Neg Acetaminophen < 3 L Urine Barbiturates Neg Ur Phencyclidine (PCP) Neg U Amphetamin/Meth Scrn Neg Urine MDEA Pending MDMA (Ecstasy) Screen Pos H MDMA Pending Urine MDMA Pending U Benzodiazepines Scrn Neg Ur Cocaine Metabolite Neg U Marijuana (THC) Screen Neg Ethyl Alcohol mg/dL < 10.0 SARS-CoV-2, RNA, NAAT NEGATIVE Current Inpatient Medications Current Inpatient Medications: Current Inpatient Medications Acetaminophen (Acetaminophen 325 Mg Tab) 650 mg PO Q4H PRN PRN Reason: Headache or Minor Fever Stop: 09/04/25 14:09 Al Hydrox/Mg Hydrox/Simethicone (Aluminum/Magnesium Susp 30 Ml Udc) 30 ml PO Q4H PRN PRN Reason: GI Upset Stop: 09/04/25 14:09 Aripiprazole (Aripiprazole 15 Mg Tab) 7.5 mg PO DAILY MARIZOL Stop: 09/05/25 08:59 Last Admin: 08/06/25 07:51 Dose: 7.5 mg Bismuth Subsalicylate (Bismuth Subsalicylate 262 Mg Chew) 2 tab PO Q30M PRN PRN Reason: Loose Stool/Diarrhea Stop: 09/04/25 14:09 Buspirone HCl (Buspirone 15 Mg Tab) 15 mg PO BID MARIZOL Stop: 09/04/25 20:59 Last Admin: 08/06/25 07:54 Dose: 15 mg Citalopram Hydrobromide (Citalopram 40 Mg Tab) 40 mg PO DAILY MARIZOL Stop: 09/05/25 08:59 Last Admin: 08/06/25 07:54 Dose: 40 mg Clonazepam (Clonazepam 0.5 Mg Tab) 0.5 mg PO BID PRN PRN Reason: Anxiety Stop: 09/04/25 16:42 Folic Acid (Folic Acid 1 Mg Tab) 1 mg PO DAILY MARIZOL Stop: 09/05/25 08:59 Last Admin: 08/06/25 07:54 Dose: 1 mg Gabapentin (Gabapentin 300 Mg Cap) 300 mg PO TID PRN PRN Reason: anxiety Stop: 09/04/25 20:59 Last Admin: 08/06/25 07:50 Dose: 300 mg Hydroxyzine HCl (Hydroxyzine Hcl 25 Mg Tab) 50 mg PO HSZ PRN PRN Reason: Insomnia Stop: 09/04/25 14:09 Hydroxyzine HCl (Hydroxyzine Hcl 25 Mg Tab) 25 mg PO Q4H PRN PRN Reason: Anxiety Stop: 09/04/25 14:09 Magnesium Hydroxide (Magnesium Hydroxide Susp 30 Ml Udc) 30 ml PO DAILY PRN PRN Reason: Constipation Stop: 09/04/25 14:09 Mirtazapine (Mirtazapine Tab 15 Mg Tab) 15 mg PO HS MARIZOL Stop: 09/04/25 21:59 Last Admin: 08/05/25 21:30 Dose: 15 mg Miscellaneous (Order Awaiting Action - Microgestin Fe 10/15 (28) Disk) 1 each N/A QS MARIZOL Stop: 09/05/25 00:00 Last Admin: 08/06/25 00:26 Dose: Not Given Sodium Chloride (Sodium Chloride 0.65% Na Soln 45 Ml ([place])) 1 - 2 sprays NA PRN PRN PRN Reason: Nasal Dryness/Congestion Stop: 09/04/25 14:09
[2025-08-06] MEDS: VENLAFAXINE HCL XR 37.5 MG CAPXR PO SCH (11:45)
[2025-08-06] MEDS: PROPRANOLOL HCL 10 MG TAB PO SCH (11:45)
[2025-08-07 08:41] LABS: Hemoglobin A1C 5.2 % (4.5-5.6)
[2025-08-07] MEDS: CITALOPRAM 20 MG TAB PO SCH (08:44)
[2025-08-07 08:51] LABS: Cholesterol 196.0 mg/dl (0-200); HDL Cholesterol 56.0 mg/dl; Triglycerides 123.0 mg/dl (0-150)
--- NOTE | 2025-08-07 09:01 | Psychiatric Progress Note ---
Date of Service August 07, 2025 Impression / Recommendations Impression DIONISIO SANCHEZ is a 45-year-old F who currently lives in [place] with her children, has a history of depression, anxiety, borderline personality disorder, and was admitted on 08/05/25 12:51 on a 201 voluntary commitment for anxiety and depression with SI with plan of overdose. Diagnostically consistent with major depressive disorder, recurrent episode, severe as well as generalized anxiety disorder with panic attacks and suspected borderline personality disorder in the context of ineffective long-term SSRI therapy and ongoing psychosocial stressors at work. A: Ongoing depression and anxiety with poor sleep, poor appetite and SI. Tolerating medication changes so far. Labwork reviewed and stable for ongoing use of abilify. Symptom questionnaires reviewed and notable for: +Alcantar, PHQ-9: 27, RAMAKRISHNA-7:19, - mood disorder Q. MNPR for severe insomnia and severe anxiety causing her to be unable to tolerate having a roommate Overall, I spent a total of 50 minutes on this case including meeting with the patient, reviewing the chart, nursing report, multidisciplinary team meeting, orders, and documentation. (1) Depression with suicidal ideation: (2) MDD (major depressive disorder), recurrent episode, severe: (3) Generalized anxiety disorder with panic attacks: (4) Borderline personality disorder: Plan 08/07/2025: -Increase mirtazapine to 30mg HS -Discontinue Celexa -Increase Effexor XR to 75mg daily 08/06/2025: The patient was admitted to the [facility] ([facility] mental health unit) on q15 min checks (behavioral with suicide precautions) for safety. The patient will participate in group, recreational, and milieu therapies and will be offered additional individual and family sessions as clinically appropriate. -Start cross-taper from citalopram to Effexor ER * Decrease citalopram from 40mg to 20mg tomorrow AM * Start Effexor ER 37.5mg daily -Increase mirtazapine from 7.5mg to 15mg HS -Discontinue trazodone -Continue Abilify 7.5mg daily -Continue Buspar 15mg BID with potential plan to titrate further in coming days -Start propranolol 10mg TID -Continue Klonopin 0.5mg BID prn for panic attacks -Start gabapentin 300mg TID prn for anxiety -Symptom questionnaires provided -Fasting lipid panel, HbA1c and Vit D ordered for tomorrow AM Inventory Assets Strengths: supportive relationships, willing to get treatment Needs: safety and stabilization, medication adjustment, additional coping skills, increased outpatient services Suicide Risk Level Suicide Risk Level: High-Moderate (q15 min suicide checks) (depression, anxiety and SI with plan but feels safe in the hospital and feels able to ask for help if she feels unsafe or needs additional support) Risk Factors Assessment Male: No : Yes Do You Have Access To A Gun?: No Health Problems: No Mental Health Diagnoses: Yes Substance Use Disorders: No Previous Attempt: No Family History of Suicide: No Previous Psychiatric Hospitalization: Yes Hopelessness: Yes Protective Factors Assessment Congregation Beliefs: Yes : No Responsible for Young Children: Yes Employed: Yes Stable Relationships: Yes Supportive Family: Yes Good Rapport with Provider: Yes Interval History Identifying Information DIONISIO SANCHEZ is a 45-year-old F who currently lives in [place] with her children, has a history of depression, anxiety, borderline personality disorder, and was admitted on 08/05/25 12:51 on a 201 voluntary commitment for anxiety and depression with SI with plan of overdose. Chief Complaint "Ok, this morning was rough". Review of Systems Sleep Information Total Hours of Sleep: 6.5 Meal Information Percent Meal Consumed - Breakfast: 50 Percent Meal Consumed - Lunch: 75 Percent Meal Consumed - Dinner: 75 Subjective Subjective Patient was seen & assessed and interval progress reviewed with treatment team. Attended groups. Rated her mood as "overwhelmed and anxious". Today reports the morning was rough with high levels of anxiety which lessened a little after she used her prn Klonopin. She feels like she didn't sleep at all overnight. She wonders if this was due to having a roommate and asks about having a private room to improve her sleep. She continues to have SI. Tearful in expressing feeling guilty like she's let down her daughters by having to be in the hospital. Validated her emotions and reviewed ways she can talk to her daughters about her treatment at age appropriate levels. She denies any medication side effects. Continues to have very poor appetite but she's trying to eat and drink supplemental beverages that technical staff assistant ordered. Physical Exam Psychiatric Orientation: alert and oriented x 3 Apperance: appropriately dressed and appropriately groomed Eye Contact: good eye contact Motor Behavior: no abnormal motor movements Speech: normal rate/rhythm/volume of speech Affect: + depressed affect and + tearful affect Mood: + depressed mood and + anxious mood Thought Process: goal directed thought process Thought Content: + cognitive distortions, reality based without delusions, + hopelessness, + worthlessness and + guilt Suicidal Thoughts: denies suicidal intent; + reports suicidal thoughts and + reports suicidal plan (none for hospital but to overdose outside the hospital) Homicidal Thoughts: denies homicidal thoughts Hallucinations: no auditory hallucinations and no visual hallucinations Cognition: recent memory grossly intact, remote memory grossly intact, attention grossly intact and language grossly intact Estimated Intelligence: consistent with education level Insight: + fair insight Judgment: + fair judgement Vital Signs (Past 24 Hours) Last Vital Signs Temp 36.8 C 08/07/25 06:00 Pulse 73 08/06/25 19:48 Resp 16 08/07/25 06:00 BP 105/74 08/07/25 06:44 Pulse Ox 96 08/07/25 06:00 O2 Del Method Room Air 08/07/25 06:00 Results & Data ([facility]) Laboratory Results Laboratory Results - last 24 hr 08/07/25 08:10 Estimat Average Glucose 103 Hemoglobin A1c 5.2 Triglycerides 123 Cholesterol 196 LDL Cholesterol, Calc 115 VLDL Cholesterol, Calc 25 HDL Cholesterol 56 Cholesterol/HDL Ratio 3.5 25-OH Vitamin D Total Pending Current Inpatient Medications Current Inpatient Medications: Current Inpatient Medications Acetaminophen (Acetaminophen 325 Mg Tab) 650 mg PO Q4H PRN PRN Reason: Headache or Minor Fever Stop: 09/04/25 14:09 Al Hydrox/Mg Hydrox/Simethicone (Aluminum/Magnesium Susp 30 Ml Udc) 30 ml PO Q4H PRN PRN Reason: GI Upset Stop: 09/04/25 14:09 Aripiprazole (Aripiprazole 15 Mg Tab) 7.5 mg PO DAILY MARIZOL Stop: 09/05/25 08:59 Last Admin: 08/07/25 08:43 Dose: 7.5 mg Bismuth Subsalicylate (Bismuth Subsalicylate 262 Mg Chew) 2 tab PO Q30M PRN PRN Reason: Loose Stool/Diarrhea Stop: 09/04/25 14:09 Buspirone HCl (Buspirone 15 Mg Tab) 15 mg PO BID MARIZOL Stop: 09/04/25 20:59 Last Admin: 08/07/25 08:44 Dose: 15 mg Citalopram Hydrobromide (Citalopram 20 Mg Tab) 20 mg PO DAILY MARIZOL Stop: 09/06/25 08:59 Last Admin: 08/07/25 08:44 Dose: 20 mg Clonazepam (Clonazepam 0.5 Mg Tab) 0.5 mg PO BID PRN PRN Reason: Anxiety Stop: 09/04/25 16:42 Folic Acid (Folic Acid 1 Mg Tab) 1 mg PO DAILY MARIZOL Stop: 09/05/25 08:59 Last Admin: 08/07/25 08:44 Dose: 1 mg Gabapentin (Gabapentin 300 Mg Cap) 300 mg PO TID PRN PRN Reason: anxiety Stop: 09/04/25 20:59 Last Admin: 08/06/25 07:50 Dose: 300 mg Hydroxyzine HCl (Hydroxyzine Hcl 25 Mg Tab) 50 mg PO HSZ PRN PRN Reason: Insomnia Stop: 09/04/25 14:09 Hydroxyzine HCl (Hydroxyzine Hcl 25 Mg Tab) 25 mg PO Q4H PRN PRN Reason: Anxiety Stop: 09/04/25 14:09 Magnesium Hydroxide (Magnesium Hydroxide Susp 30 Ml Udc) 30 ml PO DAILY PRN PRN Reason: Constipation Stop: 09/04/25 14:09 Mirtazapine (Mirtazapine Tab 15 Mg Tab) 15 mg PO HS MARIZOL Stop: 09/04/25 21:59 Last Admin: 08/06/25 21:01 Dose: 15 mg Miscellaneous (Order Awaiting Action - Microgestin Fe 10/15 () Disk) 1 each N/A QS MARIZOL Stop: 09/05/25 00:00 Last Admin: 08/07/25 08:49 Dose: Not Given Propranolol HCl (Propranolol Hcl 10 Mg Tab) 10 mg PO TID MARIZOL Stop: 09/05/25 10:54 Last Admin: 08/07/25 08:44 Dose: 10 mg Sodium Chloride (Sodium Chloride 0.65% Na Soln 45 Ml ([place])) 1 - 2 sprays NA PRN PRN PRN Reason: Nasal Dryness/Congestion Stop: 09/04/25 14:09 Venlafaxine HCl (Venlafaxine Hcl Xr 37.5 Mg Capxr) 37.5 mg PO QAM MARIZOL Stop: 09/05/25 10:59 Last Admin: 08/07/25 08:45 Dose: 37.5 mg Mental Health & Subst Abuse Tx Psychiatrist Name of Psychiatrist: Lenny Morales Psychiatrist's Date Of Appointment With Psychiatric Provider: 09/02 Time of Appointment with Psychiatrist: 1:50pm Psychiatric Appointment Comment: In person appt. [address] [facility], [facility] Therapist Name of Therapist: Codi Burkett LCSW Therapist's Date of Therapist Appointment: 08/13/25 Time of Therapist Appointment: 11:00 AM Therapy Appointment Comment: Telehealth Appointment Results Engineer Name of Results Engineer: n/a Post Discharge Appointments Primary Care Physician Name Of Family Doctor/PCP: [facility]-Dr. Calvo Primary Care Provider Appointment Comment: Follow up at needed Contact Information Discharge Discharge Address: [address] [place] [address]
[2025-08-07] MEDS: clonazePAM 0.5 MG TAB PO PRN (10:54)
[2025-08-07] MEDS: MIRTAZAPINE TAB 15 MG TAB PO SCH (22:02)
--- NOTE | 2025-08-08 08:17 | Psychiatric Progress Note ---
Date of Service August 08, 2025 Impression / Recommendations Impression DIONISIO SANCHEZ is a 45-year-old F who currently lives in [place] with her children, has a history of depression, anxiety, borderline personality disorder, and was admitted on 08/05/25 12:51 on a 201 voluntary commitment for anxiety and depression with SI with plan of overdose. Diagnostically consistent with major depressive disorder, recurrent episode, severe as well as generalized anxiety disorder with panic attacks and suspected borderline personality disorder vs PTSD in the context of ineffective long-term SSRI therapy and ongoing psychosocial stressors at work. A: Ongoing depression and anxiety with poor sleep, poor appetite and SI. Some lessening of SI today but still appears very distressed. Tolerating medication changes so far. Sleeping better with mirtazapine adjustment. MNPR for severe insomnia and severe anxiety causing her to be unable to tolerate having a roommate Overall, I spent a total of 35 minutes on this case including meeting with the patient, reviewing the chart, nursing report, multidisciplinary team meeting, orders, and documentation. (1) Depression with suicidal ideation: (2) MDD (major depressive disorder), recurrent episode, severe: (3) Generalized anxiety disorder with panic attacks: (4) Post traumatic stress disorder (PTSD): (5) Borderline personality disorder: Plan 08/08/2025: -Continue current medications and tx plan -Consider further abilify titration tomorrow 08/07/2025: -Increase mirtazapine to 30mg HS -Discontinue Celexa -Increase Effexor XR to 75mg daily 08/06/2025: The patient was admitted to the [facility] ([facility] mental health unit) on q15 min checks (behavioral with suicide precautions) for safety. The patient will participate in group, recreational, and milieu therapies and will be offered additional individual and family sessions as clinically appropriate. -Start cross-taper from citalopram to Effexor ER * Decrease citalopram from 40mg to 20mg tomorrow AM * Start Effexor ER 37.5mg daily -Increase mirtazapine from 7.5mg to 15mg HS -Discontinue trazodone -Continue Abilify 7.5mg daily -Continue Buspar 15mg BID with potential plan to titrate further in coming days -Start propranolol 10mg TID -Continue Klonopin 0.5mg BID prn for panic attacks -Start gabapentin 300mg TID prn for anxiety -Symptom questionnaires provided -Fasting lipid panel, HbA1c and Vit D ordered for tomorrow AM Inventory Assets Strengths: supportive relationships, willing to get treatment Needs: safety and stabilization, medication adjustment, additional coping skills, increased outpatient services Suicide Risk Level Suicide Risk Level: High-Moderate (q15 min suicide checks) (depression, anxiety and SI with plan but feels safe in the hospital and feels able to ask for help if she feels unsafe or needs additional support) Risk Factors Assessment Male: No : Yes Do You Have Access To A Gun?: No Health Problems: No Mental Health Diagnoses: Yes Substance Use Disorders: No Previous Attempt: No Family History of Suicide: No Previous Psychiatric Hospitalization: Yes Hopelessness: Yes Protective Factors Assessment [employer]aritan Beliefs: Yes : No Responsible for Young Children: Yes Employed: Yes Stable Relationships: Yes Supportive Family: Yes Good Rapport with Provider: Yes Interval History Identifying Information DIONISIO SANCHEZ is a 45-year-old F who currently lives in [place] with her children, has a history of depression, anxiety, borderline personality disorder, and was admitted on 08/05/25 12:51 on a 201 voluntary commitment for anxiety and depression with SI with plan of overdose. Chief Complaint "Ok, still a lot of anxiety". Review of Systems Sleep Information Total Hours of Sleep: 6.25 Meal Information Percent Meal Consumed - Breakfast: 25 Percent Meal Consumed - Lunch: 85 Percent Meal Consumed - Dinner: 100 Subjective Subjective Patient was seen & assessed and interval progress reviewed with nursing and social work. Attending groups. Rated her mood "5/10" and "anxious but hopeful" last night. Today describes sleeping more last night with medication and private room, doesn't recall any awakenings. Still with a lot of anxiety this morning which lessened a bit after Klonopin and as the day went on. She reflects that she continues to ruminate on thoughts about work stuff. Ongoing SI but "a little less" and reflects "I just want to feel better". Still very low appetite. No medication side effects. Physical Exam Psychiatric Orientation: alert and oriented x 3 Apperance: appropriately dressed and appropriately groomed Eye Contact: good eye contact Motor Behavior: no abnormal motor movements Speech: normal rate/rhythm/volume of speech Affect: + depressed affect Mood: + depressed mood and + anxious mood Thought Process: + perseveration Thought Content: + cognitive distortions, reality based without delusions, + hopelessness, + worthlessness and + guilt Suicidal Thoughts: denies suicidal intent; + reports suicidal thoughts and + reports suicidal plan (none for hospital but to overdose outside the hospital) Homicidal Thoughts: denies homicidal thoughts Hallucinations: no auditory hallucinations and no visual hallucinations Cognition: recent memory grossly intact, remote memory grossly intact, attention grossly intact and language grossly intact Estimated Intelligence: consistent with education level Insight: + fair insight Judgment: + fair judgement Vital Signs (Past 24 Hours) Last Vital Signs Temp 36.3 C L 08/08/25 06:34 Pulse 76 08/08/25 06:34 Resp 16 08/08/25 06:34 BP 118/78 08/08/25 06:35 Pulse Ox 96 08/08/25 06:34 O2 Del Method Room Air 08/08/25 06:34 Results & Data ([facility]) Laboratory Results Laboratory Results - last 24 hr 08/07/25 08:10 Estimat Average Glucose 103 Hemoglobin A1c 5.2 Triglycerides 123 Cholesterol 196 LDL Cholesterol, Calc 115 VLDL Cholesterol, Calc 25 HDL Cholesterol 56 Cholesterol/HDL Ratio 3.5 25-OH Vitamin D Total 50.9 Current Inpatient Medications Current Inpatient Medications: Current Inpatient Medications Acetaminophen (Acetaminophen 325 Mg Tab) 650 mg PO Q4H PRN PRN Reason: Headache or Minor Fever Stop: 09/04/25 14:09 Al Hydrox/Mg Hydrox/Simethicone (Aluminum/Magnesium Susp 30 Ml Udc) 30 ml PO Q4H PRN PRN Reason: GI Upset Stop: 09/04/25 14:09 Aripiprazole (Aripiprazole 15 Mg Tab) 7.5 mg PO DAILY MARIZOL Stop: 09/05/25 08:59 Last Admin: 08/07/25 08:43 Dose: 7.5 mg Bismuth Subsalicylate (Bismuth Subsalicylate 262 Mg Chew) 2 tab PO Q30M PRN PRN Reason: Loose Stool/Diarrhea Stop: 09/04/25 14:09 Buspirone HCl (Buspirone 15 Mg Tab) 15 mg PO BID MARIZOL Stop: 09/04/25 20:59 Last Admin: 08/07/25 22:02 Dose: 15 mg Clonazepam (Clonazepam 0.5 Mg Tab) 0.5 mg PO BID PRN PRN Reason: Anxiety Stop: 09/04/25 16:42 Last Admin: 08/07/25 10:54 Dose: 0.5 mg Folic Acid (Folic Acid 1 Mg Tab) 1 mg PO DAILY MARIZOL Stop: 09/05/25 08:59 Last Admin: 08/07/25 08:44 Dose: 1 mg Gabapentin (Gabapentin 300 Mg Cap) 300 mg PO TID PRN PRN Reason: anxiety Stop: 09/04/25 20:59 Last Admin: 08/06/25 07:50 Dose: 300 mg Hydroxyzine HCl (Hydroxyzine Hcl 25 Mg Tab) 50 mg PO HSZ PRN PRN Reason: Insomnia Stop: 09/04/25 14:09 Hydroxyzine HCl (Hydroxyzine Hcl 25 Mg Tab) 25 mg PO Q4H PRN PRN Reason: Anxiety Stop: 09/04/25 14:09 Magnesium Hydroxide (Magnesium Hydroxide Susp 30 Ml Udc) 30 ml PO DAILY PRN PRN Reason: Constipation Stop: 09/04/25 14:09 Mirtazapine (Mirtazapine Tab 15 Mg Tab) 30 mg PO HS MARIZOL Stop: 09/06/25 21:59 Last Admin: 08/07/25 22:02 Dose: 30 mg Miscellaneous (Order Awaiting Action - Microgestin Fe 10/15 (28) Disk) 1 each N/A QS MARIZOL Stop: 09/05/25 00:00 Last Admin: 08/07/25 16:21 Dose: Not Given Propranolol HCl (Propranolol Hcl 10 Mg Tab) 10 mg PO TID MARIZOL Stop: 09/05/25 10:54 Last Admin: 08/07/25 22:02 Dose: 10 mg Sodium Chloride (Sodium Chloride 0.65% Na Soln 45 Ml ([place])) 1 - 2 sprays NA PRN PRN PRN Reason: Nasal Dryness/Congestion Stop: 09/04/25 14:09 Venlafaxine HCl (Venlafaxine Hcl Xr 75 Mg Capxr) 75 mg PO QAM MARIZOL Stop: 09/07/25 08:59 Mental Health & Subst Abuse Tx Psychiatrist Name of Psychiatrist: [facility] Psychiatrist's Date Of Appointment With Psychiatric Provider: 09/02 Time of Appointment with Psychiatrist: 1:50pm Psychiatric Appointment Comment: In person appt. [address] [facility], [address] Therapist Name of Therapist: Codi Burkett LCSW Therapist's Date of Therapist Appointment: 08/13/25 Time of Therapist Appointment: 11:00 AM Therapy Appointment Comment: Telehealth Appointment Block Handler Name of Block Handler: n/a Post Discharge Appointments Primary Care Physician Name Of Family Doctor/PCP: [facility]-Dr. Calvo Primary Care Provider Appointment Comment: Follow up at needed Contact Information Discharge Discharge Address: [address] [place] [address]
[2025-08-08] MEDS: VENLAFAXINE HCL XR 75 MG CAPXR PO SCH (08:57)
[2025-08-08 11:32] LABS: MDA negative; MDEA negative; MDMA (Ecstasy) Urine, Confirm negative
--- NOTE | 2025-08-09 09:15 | Psychiatric Progress Note ---
Date of Service August 09, 2025 Impression / Recommendations Impression DIONISIO SANCHEZ is a 45-year-old F who currently lives in [place] with her children, has a history of depression, anxiety, borderline personality disorder, and was admitted on 08/05/25 12:51 on a 201 voluntary commitment for anxiety and depression with SI with plan of overdose. Diagnostically consistent with major depressive disorder, recurrent episode, severe as well as generalized anxiety disorder with panic attacks and suspected borderline personality disorder vs PTSD in the context of ineffective long-term SSRI therapy and ongoing psychosocial stressors at work. A: Ongoing depression and anxiety but sleeping a bit more and with a little reduction in SI today. Still with very poor appetite and periods of hopelessness and extreme anxiety. Tolerating medication changes so far, she consents to ongoing titration of Effexor XR. MNPR for severe insomnia and severe anxiety causing her to be unable to tolerate having a roommate Overall, I spent a total of 36 minutes on this case including meeting with the patient, reviewing the chart, nursing report, multidisciplinary team meeting, orders, and documentation. (1) Depression with suicidal ideation: (2) MDD (major depressive disorder), recurrent episode, severe: (3) Generalized anxiety disorder with panic attacks: (4) Post traumatic stress disorder (PTSD): (5) Borderline personality disorder: Plan 08/09/2025: -Increase Effexor ER to 150mg daily 08/08/2025: -Continue current medications and tx plan -Consider further abilify titration tomorrow 08/07/2025: -Increase mirtazapine to 30mg HS -Discontinue Celexa -Increase Effexor ER to 75mg daily 08/06/2025: The patient was admitted to the [facility] ([facility] mental health unit) on q15 min checks (behavioral with suicide precautions) for safety. The patient will participate in group, recreational, and milieu therapies and will be offered additional individual and family sessions as clinically appropriate. -Start cross-taper from citalopram to Effexor ER * Decrease citalopram from 40mg to 20mg tomorrow AM * Start Effexor ER 37.5mg daily -Increase mirtazapine from 7.5mg to 15mg HS -Discontinue trazodone -Continue Abilify 7.5mg daily -Continue Buspar 15mg BID with potential plan to titrate further in coming days -Start propranolol 10mg TID -Continue Klonopin 0.5mg BID prn for panic attacks -Start gabapentin 300mg TID prn for anxiety -Symptom questionnaires provided -Fasting lipid panel, HbA1c and Vit D ordered for tomorrow AM Inventory Assets Strengths: supportive relationships, willing to get treatment Needs: safety and stabilization, medication adjustment, additional coping skills, increased outpatient services Suicide Risk Level Suicide Risk Level: High-Moderate (q15 min suicide checks) (depression, anxiety and SI with plan but feels safe in the hospital and feels able to ask for help if she feels unsafe or needs additional support) Risk Factors Assessment Male: No : Yes Do You Have Access To A Gun?: No Health Problems: No Mental Health Diagnoses: Yes Substance Use Disorders: No Previous Attempt: No Family History of Suicide: No Previous Psychiatric Hospitalization: Yes Hopelessness: Yes Protective Factors Assessment Religion Beliefs: Yes : No Responsible for Young Children: Yes Employed: Yes Stable Relationships: Yes Supportive Family: Yes Good Rapport with Provider: Yes Interval History Identifying Information DIONISIO SANCHEZ is a 45-year-old F who currently lives in [place] with her children, has a history of depression, anxiety, borderline personality disorder, and was admitted on 08/05/25 12:51 on a 201 voluntary commitment for anxiety and depression with SI with plan of overdose. Chief Complaint "Uneasy". Review of Systems Sleep Information Total Hours of Sleep: 7.25 Meal Information Percent Meal Consumed - Breakfast: 15 Percent Meal Consumed - Lunch: 50 Percent Meal Consumed - Dinner: 50 Subjective Subjective Patient was seen & assessed and interval progress reviewed with treatment team. Struggled a lot yesterday with very flat affect and anxious and overwhelmed by safety plan. She did nap briefly in the afternoon but didn't think she had slept. Her parents visited last evening and she was tearful during this, she reported feeling like a failure with guilt about being away from her kids. Rated her mood a "2" and feeling "overwhelmed". She got prn Vistaril yesterday evening and this was not effective so she then got prn Klonopin. She attended all the groups. Today she continues to feel "uneasy" and very anxious but reflects on lessening SI and getting some sleep last night. She felt quite hopeless mid-day but felt a little better after processing this with the RN and utilizing suggested coping strategy of listening to music and walking. She denies any medication side effects. She prefers to titrate Effexor further instead of increasing Abilify due to previous worsening cognition while taking higher dose Abilify. Physical Exam Psychiatric Orientation: alert and oriented x 3 Apperance: appropriately dressed and appropriately groomed Eye Contact: good eye contact Motor Behavior: no abnormal motor movements Speech: normal rate/rhythm/volume of speech Affect: + depressed affect Mood: + depressed mood and + anxious mood Thought Process: + perseveration Thought Content: + cognitive distortions, reality based without delusions, + hopelessness, + worthlessness and + guilt Suicidal Thoughts: denies suicidal plan and denies suicidal intent; + reports suicidal thoughts (lessening today) Homicidal Thoughts: denies homicidal thoughts Hallucinations: no auditory hallucinations and no visual hallucinations Cognition: recent memory grossly intact, remote memory grossly intact, attention grossly intact and language grossly intact Estimated Intelligence: consistent with education level Insight: + fair insight Judgment: + fair judgement Vital Signs (Past 24 Hours) Last Vital Signs Temp 36.4 C 08/09/25 06:32 Pulse 65 08/08/25 21:24 Resp 16 08/09/25 06:32 BP 134/89 08/09/25 06:33 Pulse Ox 98 08/09/25 06:32 O2 Del Method Room Air 08/09/25 06:32 Results & Data ([facility]) Laboratory Results Laboratory Results - last 24 hr 08/05/25 08:25 Urine MDEA negative MDMA negative Urine MDMA negative Current Inpatient Medications Current Inpatient Medications: Current Inpatient Medications Acetaminophen (Acetaminophen 325 Mg Tab) 650 mg PO Q4H PRN PRN Reason: Headache or Minor Fever Stop: 09/04/25 14:09 Al Hydrox/Mg Hydrox/Simethicone (Aluminum/Magnesium Susp 30 Ml Udc) 30 ml PO Q4H PRN PRN Reason: GI Upset Stop: 09/04/25 14:09 Aripiprazole (Aripiprazole 15 Mg Tab) 7.5 mg PO DAILY MARIZOL Stop: 09/05/25 08:59 Last Admin: 08/09/25 09:00 Dose: 7.5 mg Bismuth Subsalicylate (Bismuth Subsalicylate 262 Mg Chew) 2 tab PO Q30M PRN PRN Reason: Loose Stool/Diarrhea Stop: 09/04/25 14:09 Buspirone HCl (Buspirone 15 Mg Tab) 15 mg PO BID MARIZOL Stop: 09/04/25 20:59 Last Admin: 08/09/25 09:00 Dose: 15 mg Clonazepam (Clonazepam 0.5 Mg Tab) 0.5 mg PO BID PRN PRN Reason: Anxiety Stop: 09/04/25 16:42 Last Admin: 08/08/25 21:22 Dose: 0.5 mg Folic Acid (Folic Acid 1 Mg Tab) 1 mg PO DAILY MARIZOL Stop: 09/05/25 08:59 Last Admin: 08/09/25 09:00 Dose: 1 mg Gabapentin (Gabapentin 300 Mg Cap) 300 mg PO TID PRN PRN Reason: anxiety Stop: 09/04/25 20:59 Last Admin: 08/06/25 07:50 Dose: 300 mg Hydroxyzine HCl (Hydroxyzine Hcl 25 Mg Tab) 50 mg PO HSZ PRN PRN Reason: Insomnia Stop: 09/04/25 14:09 Hydroxyzine HCl (Hydroxyzine Hcl 25 Mg Tab) 25 mg PO Q4H PRN PRN Reason: Anxiety Stop: 09/04/25 14:09 Last Admin: 08/08/25 19:51 Dose: 25 mg Magnesium Hydroxide (Magnesium Hydroxide Susp 30 Ml Udc) 30 ml PO DAILY PRN PRN Reason: Constipation Stop: 09/04/25 14:09 Mirtazapine (Mirtazapine Tab 15 Mg Tab) 30 mg PO HS MARIZOL Stop: 09/06/25 21:59 Last Admin: 08/08/25 22:03 Dose: 30 mg Propranolol HCl (Propranolol Hcl 10 Mg Tab) 10 mg PO TID MARIZOL Stop: 09/05/25 10:54 Last Admin: 08/08/25 22:03 Dose: 10 mg Sodium Chloride (Sodium Chloride 0.65% Na Soln 45 Ml ([place])) 1 - 2 sprays NA PRN PRN PRN Reason: Nasal Dryness/Congestion Stop: 09/04/25 14:09 Venlafaxine HCl (Venlafaxine Hcl Xr 75 Mg Capxr) 75 mg PO QAM MARIZOL Stop: 09/07/25 08:59 Last Admin: 08/09/25 09:01 Dose: 75 mg Mental Health & Subst Abuse Tx Psychiatrist Name of Psychiatrist: [facility] Psychiatrist's Date Of Appointment With Psychiatric Provider: 09/02 Time of Appointment with Psychiatrist: 1:50pm Psychiatric Appointment Comment: In person appt. [address] [facility], [address], [place] Therapist Name of Therapist: Codi Burkett LCSW Therapist's Date of Therapist Appointment: 08/13/25 Time of Therapist Appointment: 11:00 AM Therapy Appointment Comment: Telehealth Appointment Av Specialist Name of Av Specialist: n/a Post Discharge Appointments Primary Care Physician Name Of Family Doctor/PCP: [facility]-Dr. Calvo Primary Care Provider Appointment Comment: Follow up at needed Contact Information Discharge Discharge Address: [address] [place] [address]
[2025-08-09 19:40] VITALS: O2SAT 97
[2025-08-10] MEDS: VENLAFAXINE HCL XR 150 MG CAPXR PO SCH (09:20)
--- NOTE | 2025-08-10 10:38 | Psychiatric Progress Note ---
Date of Service August 10, 2025 Impression / Recommendations Impression DIONISIO SANCHEZ is a 45-year-old F who currently lives in [place] with her children, has a history of depression, anxiety, borderline personality disorder, and was admitted on 08/05/25 12:51 on a 201 voluntary commitment for anxiety and depression with SI with plan of overdose. Diagnostically consistent with major depressive disorder, recurrent episode, severe as well as generalized anxiety disorder with panic attacks and suspected borderline personality disorder vs PTSD in the context of ineffective long-term SSRI therapy and ongoing psychosocial stressors at work. A: Patient exhibits depression and anxiety symptoms with no evidence of psychosis. She tolerated the higher dose of Effexor XR. Remains guarded with ruminations and hopelessness. MNPR for severe insomnia and severe anxiety causing her to be unable to tolerate having a roommate. Overall, I spent a total of 38 minutes on this case including meeting with the patient, reviewing the chart, nursing report, multidisciplinary team meeting, orders, and documentation. (1) Depression with suicidal ideation: Continue suicide precautions/observations (2) MDD (major depressive disorder), recurrent episode, severe: Continue cross-taper. Patient started Effexor 150 today. (3) Generalized anxiety disorder with panic attacks: Continue BuSpar Remeron and Effexor combination (4) Post traumatic stress disorder (PTSD): Same as above (5) Borderline personality disorder: Encouraged to participate in unit programming Plan 08/10/25 -Today started higher dose of Effexor ER (150 mg p.o. every morning) -Will hold Abilify titration plan until tomorrow -Labs ordered for Tuesday including UA repeat of MDMA test. Also ordered B12 due to history of eating disorder and prolonged low appetite. Continue rest of medications without changes: -Abilify 7.5mg daily -Buspar 15mg BID with potential plan to titrate further in coming days -propranolol 10mg TID -Klonopin 0.5mg BID prn for panic attacks -gabapentin 300mg TID prn for anxiety 08/09/2025: -Increase Effexor ER to 150mg daily 08/08/2025: -Continue current medications and tx plan -Consider further abilify titration tomorrow 08/07/2025: -Increase mirtazapine to 30mg HS -Discontinue Celexa -Increase Effexor ER to 75mg daily 08/06/2025: The patient was admitted to the [facility] ([facility]) on q15 min checks (behavioral with suicide precautions) for safety. The patient jaycob l participate in group, recreational, and milieu therapies and will be offered additional individual and family sessions as clinically appropriate. -Start cross-taper from citalopram to Effexor ER * Decrease citalopram from 40mg to 20mg tomorrow AM * Start Effexor ER 37.5mg daily -Increase mirtazapine from 7.5mg to 15mg HS -Discontinue trazodone -Continue Abilify 7.5mg daily -Continue Buspar 15mg BID with potential plan to titrate further in coming days -Start propranolol 10mg TID -Continue Klonopin 0.5mg BID prn for panic attacks -Start gabapentin 300mg TID prn for anxiety -Symptom questionnaires provided -Fasting lipid panel, HbA1c and Vit D ordered for tomorrow AM Inventory Assets Strengths: supportive relationships, willing to get treatment Needs: safety and stabilization, medication adjustment, additional coping skills, increased outpatient services Suicide Risk Level Suicide Risk Level: High-Moderate (q15 min suicide checks) (depression, anxiety and SI with plan but feels safe in the hospital and feels able to ask for help if she feels unsafe or needs additional support) Risk Factors Assessment Male: No : Yes Do You Have Access To A Gun?: No Health Problems: No Mental Health Diagnoses: Yes Substance Use Disorders: No Previous Attempt: No Family History of Suicide: No Previous Psychiatric Hospitalization: Yes Hopelessness: Yes Protective Factors Assessment Nondenominational Beliefs: Yes : No Responsible for Young Children: Yes Employed: Yes Stable Relationships: Yes Supportive Family: Yes Good Rapport with Provider: Yes Interval History Identifying Information DIONISIO SANCHEZ is a 45-year-old F who currently lives in [place] with her maury prater, has a history of depression, anxiety, borderline personality disorder, and was admitted on 08/05/25 12:51 on a 201 voluntary commitment for anxiety and depression with SI with plan of overdose. Chief Complaint "I don't feel any different. I don't know if the medications are working." Review of Systems Sleep Information Total Hours of Sleep: 9.5 Meal Information Percent Meal Consumed - Breakfast: 50 Percent Meal Consumed - Lunch: 40 Percent Meal Consumed - Dinner: 50 Medication Trials Celexa Subjective Subjective Patient was seen & assessed and interval progress reviewed with nursing and social work. Patient presented for follow-up evaluation looking guarded and somewhat tremulous. She was able to name her current medications, denied side effects, but was unable to identify any positive effects. Patient explained that she suffers from severe anxiety. This anxiety is accompanied by depressed mood decreased appetite. Patient indicated that she had a similar episode in April of combined anxiety and depression symptoms. Patient indicated that she has 2 daughters from 2 different previous relationships. She is in a new relationship since September 2024. Patient reported that her ex partner and current partner are not a source of stress. Her main stressor is related to work. When encouraged to describe her anxiety patient stated that she has a lot of worries about the future. Her anxiety causes her to have decreased appetite. Patient is very thin and does have a history of eating disorder. Her UDS on admission is positive for MDMA. The same results were obtained in April during a previous admission. She denies using ecstasy. She denied using stimulants, oral [id number] medications, or natural supplements. This could be a false positive from psychotropic medications, we will reorder the test for M onday to explore possible false positive from beta-gabriela or antidepressant use. Patient agreed to continue the medication without changes. Summary of Past History - Depression with anxiety -Eating disorder -PTSD Physical Exam Mental Examination Appearance: Disheveled (Very thin with BMI= 18.4) Eye Contact: Fleeting Contact Motor Behavior: Tremulous Mood: Depressed, Anxious, Sad and Tearful Affect: Anxious, Flat and Sad Thought Process: Intact Hallucinations: None Insight: Fair Judgement: Fair Psychiatric Orientation: alert and oriented x 3 Speech: normal rate/rhythm/volume of speech Affect: + depressed affect, + anxious affect, + tearful affect and + constricted affect Mood: + depressed mood and + anxious mood Thought Process: goal directed thought process and + perseveration Thought Content: + preoccupation, + cognitive distortions, reality based without delusions, + hopelessness, + worthlessness and + guilt Suicidal Thoughts: denies suicidal thoughts (has been having thoughts recurrently but fleeting), denies suicidal plan and denies suicidal intent Homicidal Thoughts: denies homicidal thoughts Hallucinations: no auditory hallucinations and no visual hallucinations Cognition: recent memory grossly intact, remote memory grossly intact, attention grossly intact and language grossly intact Estimated Intelligence: consistent with education level Insight: + fair insight Judgment: + fair judgement Vital Signs (Past 24 Hours) Last Vital Signs Temp 36.4 C 08/10/25 06:00 Pulse 101 H 08/10/25 06:14 Resp 16 08/10/25 06:00 BP 112/75 08/10/25 06:14 Pulse Ox 97 08/09/25 19:39 O2 Del Method Room Air 08/09/25 19:39 Results & Data ([facility]) Current Inpatient Medications Current Inpatient Medications: Current Inpatient Medications Acetaminophen (Acetaminophen 325 Mg Tab) 650 mg PO Q4H PRN PRN Reason: Headache or Minor Fever Stop: 09/04/25 14:09 Al Hydrox/Mg Hydrox/Simethicone (Aluminum/Magnesium Susp 30 Ml Udc) 30 ml PO Q4H PRN PRN Reason: GI Upset Stop: 09/04/25 14:09 Aripiprazole (Aripiprazole 15 Mg Tab) 7.5 mg PO DAILY MARIZOL Stop: 09/05/25 08:59 Last Admin: 08/10/25 09:19 Dose: 7.5 mg Bismuth Subsalicylate (Bismuth Subsalicylate 262 Mg Chew) 2 tab PO Q30M PRN PRN Reason: Loose Stool/Diarrhea Stop: 09/04/25 14:09 Buspirone HCl (Buspirone 15 Mg Tab) 15 mg PO BID MARIZOL Stop: 09/04/25 20:59 Last Admin: 08/10/25 09:19 Dose: 15 mg Clonazepam (Clonazepam 0.5 Mg Tab) 0.5 mg PO BID PRN PRN Reason: Anxiety Stop: 09/04/25 16:42 Last Admin: 08/08/25 21:22 Dose: 0.5 mg Folic Acid (Folic Acid 1 Mg Tab) 1 mg PO DAILY MARIZOL Stop: 09/05/25 08:59 Last Admin: 08/10/25 09:19 Dose: 1 mg Gabapentin (Gabapentin 300 Mg Cap) 300 mg PO TID PRN PRN Reason: anxiety Stop: 09/04/25 20:59 Last Admin: 08/09/25 21:49 Dose: 300 mg Hydroxyzine HCl (Hydroxyzine Hcl 25 Mg Tab) 50 mg PO HSZ PRN PRN Reason: Insomnia Stop: 09/04/25 14:09 Hydroxyzine HCl (Hydroxyzine Hcl 25 Mg Tab) 25 mg PO Q4H PRN PRN Reason: Anxiety Stop: 09/04/25 14:09 Last Admin: 08/09/25 16:47 Dose: 25 mg Magnesium Hydroxide (Magnesium Hydroxide Susp 30 Ml Udc) 30 ml PO DAILY PRN PRN Reason: Constipation Stop: 09/04/25 14:09 Mirtazapine (Mirtazapine Tab 15 Mg Tab) 30 mg PO HS MARIZOL Stop: 09/06/25 21:59 Last Admin: 08/09/25 22:04 Dose: 30 mg Propranolol HCl (Propranolol Hcl 10 Mg Tab) 10 mg PO TID MARIZOL Stop: 09/05/25 10:54 Last Admin: 08/10/25 09:19 Dose: 10 mg Sodium Chloride (Sodium Chloride 0.65% Na Soln 45 Ml ([place])) 1 - 2 sprays NA PRN PRN PRN Reason: Nasal Dryness/Congestion Stop: 09/04/25 14:09 Venlafaxine HCl (Venlafaxine Hcl Xr 150 Mg Capxr) 150 mg PO QAM MARIZOL Stop: 09/09/25 08:59 Last Admin: 08/10/25 09:20 Dose: 150 mg Mental Health & Subst Abuse Tx Psychiatrist Name of Psychiatrist: [facility] Psychiatrist's Date Of Appointment With Psychiatric Provider: 09/02 Time of Appointment with Psychiatrist: 1:50pm Psychiatric Appointment Comment: In person appt. 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 Calvo Primary Care Provider Appointment Comment: Follow up at needed Contact Information Discharge Discharge Address: [address] [place] [address]
--- NOTE | 2025-08-11 11:28 | Psychiatric Progress Note ---
Date of Service August 11, 2025 Impression / Recommendations Impression DIONISIO SANCHEZ is a 45-year-old F who currently lives in [place] with her children, has a history of depression, anxiety, borderline personality disorder, and was admitted on 08/05/25 12:51 on a 201 voluntary commitment for anxiety and depression with SI with plan of overdose. Diagnostically consistent with major depressive disorder, recurrent episode, severe as well as generalized anxiety disorder with panic attacks and suspected borderline personality disorder vs PTSD in the context of ineffective long-term SSRI therapy and ongoing psychosocial stressors at work. A: Patient is still anxious and irritable and guarded. Effexor was recently increased and appears to be having a good initial effect with good tolerability. Labs ordered are pending results. MNPR for severe insomnia and severe anxiety causing her to be unable to tolerate having a roommate. Overall, I spent a total of 35 minutes on this case including meeting with the patient, reviewing the chart, nursing report, multidisciplinary team meeting, orders, and documentation. (1) Depression with suicidal ideation: Continue suicide precautions/observations (2) MDD (major depressive disorder), recurrent episode, severe: Continue cross-taper. Patient started Effexor 150 today. (3) Generalized anxiety disorder with panic attacks: Continue BuSpar Remeron and Effexor combination (4) Post traumatic stress disorder (PTSD): Same as above (5) Borderline personality disorder: Encouraged to participate in unit programming Plan 08/11/25 -No medication changes. 08/10/25 -Today started higher dose of Effexor ER (150 mg p.o. every morning) -Will hold Abilify titration plan until tomorrow -Labs ordered for Tuesday including UA repeat of MDMA test. Also ordered B12 due to history of eating disorder and prolonged low appetite. Continue rest of medications without changes: -Abilify 7.5mg daily -Buspar 15mg BID with potential plan to titrate further in coming days -propranolol 10mg TID -Klonopin 0.5mg BID prn for panic attacks -gabapentin 300mg TID prn for anxiety 08/09/2025: -Increase Effexor ER to 150mg daily 08/08/2025: -Continue current medications and tx plan -Consider further abilify titration tomorrow 08/07/2025: -Increase mirtazapine to 30mg HS -Discontinue Celexa -Increase Effexor ER to 75mg daily 08/06/2025: The patient was admitted to the [facility] ([facility] mental health unit) on q15 min checks (behavioral with suicide precautions) for safety. The patient will participate in group, recreational, and milieu therapies and will be offered additional individual and family sessions as clinically appropriate. -Start cross-taper from citalopram to Effexor ER * Decrease citalopram from 40mg to 20mg tomorrow AM * Start Effexor ER 37.5mg daily -Increase mirtazapine from 7.5mg to 15mg HS -Discontinue trazodone -Continue Abilify 7.5mg daily -Continue Buspar 15mg BID with potential plan to titrate further in coming days -Start propranolol 10mg TID -Continue Klonopin 0.5mg BID prn for panic attacks -Start gabapentin 300mg TID prn for anxiety -Symptom questionnaires provided -Fasting lipid panel, HbA1c and Vit D ordered for tomorrow AM Inventory Assets Strengths: supportive relationships, willing to get treatment Needs: safety and stabilization, medication adjustment, additional coping skills, increased outpatient services Suicide Risk Level Suicide Risk Level: High-Moderate (q15 min suicide checks) (depression, anxiety and SI with plan but feels safe in the hospital and feels able to ask for help if she feels unsafe or needs additional support) Risk Factors Assessment Male: No : Yes Do You Have Access To A Gun?: No Health Problems: No Mental Health Diagnoses: Yes Substance Use Disorders: No Previous Attempt: No Family History of Suicide: No Previous Psychiatric Hospitalization: Yes Hopelessness: Yes Protective Factors Assessment Mandaen Beliefs: Yes : No Responsible for Young Children: Yes Employed: Yes Stable Relationships: Yes Supportive Family: Yes Good Rapport with Provider: Yes Interval History Identifying Information DIONISIO SANCHEZ is a 45-year-old F who currently lives in [place] with her children, has a history of depression, anxiety, borderline personality disorder, and was admitted on 08/05/25 12:51 on a 201 voluntary commitment for anxiety and depression with SI with plan of overdose. Chief Complaint "I am just anxious". Review of Systems Sleep Information Total Hours of Sleep: 8 Meal Information Percent Meal Consumed - Breakfast: 50 Percent Meal Consumed - Lunch: 75 Percent Meal Consumed - Dinner: 70 Medication Trials Celexa Subjective Subjective Patient was seen & assessed and interval progress reviewed with nursing and social work. according to staff patient is guarded with flat affect rated her mood at 3 somewhat irritable. Last night was upset but did not verbalize what made her feel that way. She was rolling her eyes at staff. Patient evaluated at bedside. Reported she is still feeling anxious but slightly less depressed. She is tolerating the medication changes well. Denied side effects from medication. Summary of Past History - Depression with anxiety -Eating disorder -PTSD Medication Trials Celexa Physical Exam Mental Examination Appearance: Unkempt Eye Contact: Fleeting Contact Motor Behavior: Tremulous Speech: Soft Mood: Depressed, Anxious, Sad and Tearful Affect: Anxious, Flat and Sad Thought Process: Intact Hallucinations: None Insight: Fair Judgement: Fair Psychiatric Orientation: alert and oriented x 3 Apperance: appropriately dressed and appropriately groomed Eye Contact: good eye contact Motor Behavior: no abnormal motor movements Speech: normal rate/rhythm/volume of speech Affect: + depressed affect, + anxious affect, + tearful affect and + constricted affect Mood: + depressed mood and + anxious mood Thought Process: goal directed thought process and + perseveration Thought Content: + preoccupation, + cognitive distortions, reality based without delusions, + hopelessness, + worthlessness and + guilt Suicidal Thoughts: denies suicidal thoughts (has been having thoughts recurrently but fleeting), denies suicidal plan and denies suicidal intent Homicidal Thoughts: denies homicidal thoughts Hallucinations: no auditory hallucinations and no visual hallucinations Cognition: recent memory grossly intact, remote memory grossly intact, attention grossly intact and language grossly intact Estimated Intelligence: consistent with education level Insight: + fair insight Judgment: + fair judgement Vital Signs (Past 24 Hours) Last Vital Signs Temp 36.1 C L 08/11/25 06:00 Pulse 112 H 08/11/25 06:27 Resp 16 08/11/25 06:00 BP 112/81 08/11/25 06:27 Pulse Ox 97 08/09/25 19:39 O2 Del Method Room Air 08/09/25 19:39 Results & Data ([facility]) Current Inpatient Medications Current Inpatient Medications: Current Inpatient Medications Acetaminophen (Acetaminophen 325 Mg Tab) 650 mg PO Q4H PRN PRN Reason: Headache or Minor Fever Stop: 09/04/25 14:09 Al Hydrox/Mg Hydrox/Simethicone (Aluminum/Magnesium Susp 30 Ml Udc) 30 ml PO Q4H PRN PRN Reason: GI Upset Stop: 09/04/25 14:09 Aripiprazole (Aripiprazole 15 Mg Tab) 7.5 mg PO DAILY MARIZOL Stop: 09/05/25 08:59 Last Admin: 08/11/25 08:50 Dose: 7.5 mg Bismuth Subsalicylate (Bismuth Subsalicylate 262 Mg Chew) 2 tab PO Q30M PRN PRN Reason: Loose Stool/Diarrhea Stop: 09/04/25 14:09 Buspirone HCl (Buspirone 15 Mg Tab) 15 mg PO BID MARIZOL Stop: 09/04/25 20:59 Last Admin: 08/11/25 08:51 Dose: 15 mg Clonazepam (Clonazepam 0.5 Mg Tab) 0.5 mg PO BID PRN PRN Reason: Anxiety Stop: 09/04/25 16:42 Last Admin: 08/10/25 19:00 Dose: 0.5 mg Folic Acid (Folic Acid 1 Mg Tab) 1 mg PO DAILY MARIZOL Stop: 09/05/25 08:59 Last Admin: 08/11/25 08:50 Dose: 1 mg Gabapentin (Gabapentin 300 Mg Cap) 300 mg PO TID PRN PRN Reason: anxiety Stop: 09/04/25 20:59 Last Admin: 08/09/25 21:49 Dose: 300 mg Hydroxyzine HCl (Hydroxyzine Hcl 25 Mg Tab) 50 mg PO HSZ PRN PRN Reason: Insomnia Stop: 09/04/25 14:09 Hydroxyzine HCl (Hydroxyzine Hcl 25 Mg Tab) 25 mg PO Q4H PRN PRN Reason: Anxiety Stop: 09/04/25 14:09 Last Admin: 08/09/25 16:47 Dose: 25 mg Magnesium Hydroxide (Magnesium Hydroxide Susp 30 Ml Udc) 30 ml PO DAILY PRN PRN Reason: Constipation Stop: 09/04/25 14:09 Mirtazapine (Mirtazapine Tab 15 Mg Tab) 30 mg PO HS MARIZOL Stop: 09/06/25 21:59 Last Admin: 08/10/25 22:11 Dose: 30 mg Propranolol HCl (Propranolol Hcl 10 Mg Tab) 10 mg PO TID MARIZOL Stop: 09/05/25 10:54 Last Admin: 08/11/25 08:51 Dose: 10 mg Sodium Chloride (Sodium Chloride 0.65% Na Soln 45 Ml ([place])) 1 - 2 sprays NA PRN PRN PRN Reason: Nasal Dryness/Congestion Stop: 09/04/25 14:09 Venlafaxine HCl (Venlafaxine Hcl Xr 150 Mg Capxr) 150 mg PO QAM MARIZOL Stop: 09/09/25 08:59 Last Admin: 08/11/25 08:51 Dose: 150 mg Mental Health & Subst Abuse Tx Psychiatrist [facility] Date Of Appointment With Psychiatric Provider: 09/02 Time of Appointment with Psychiatrist: 1:50pm Psychiatric Appointment Comment: In person appt. [address] [facility], [facility] Therapist Name of Therapist: Codi Burkett LCSW Therapist's Date of Therapist Appointment: 08/13/25 Time of Therapist Appointment: 11:00 AM Therapy Appointment Comment: Telehealth Appointment Miniature Model Maker Name of Miniature Model Maker: n/a Post Discharge Appointments Primary Care Physician Name Of Family Doctor/PCP: [facility]-Dr. Calvo Primary Care Provider Appointment Comment: Follow up at needed Contact Information Discharge Discharge Address: [address] [place] [address]
--- NOTE | 2025-08-12 10:18 | Psychiatric Progress Note ---
Date of Service August 12, 2025 Impression / Recommendations Impression DIONISIO SANCHEZ is a 45-year-old F who currently lives in [place] with her children, has a history of depression, anxiety, borderline personality disorder, and was admitted on 08/05/25 12:51 on a 201 voluntary commitment for anxiety and depression with SI with plan of overdose. Diagnostically consistent with major depressive disorder, recurrent episode, severe as well as generalized anxiety disorder with panic attacks and suspected borderline personality disorder vs PTSD in the context of ineffective long-term SSRI therapy and ongoing psychosocial stressors at work. A: Patient is showing good progress. Given passive suicidal ideations that come and go and recent medication changes recommend continuing inpatient. Inpatient treatment is the least restrictive option at this time. If patient continues to improve she may be ready for discharge by the end of the week. B12 deficiency is being corrected with intramuscular cyanocobalamin. Overall, I spent a total of 38 minutes on this case including meeting with the patient, reviewing the chart, nursing report, multidisciplinary team meeting, orders, and documentation. (1) Depression with suicidal ideation: Continue suicide precautions/observations (2) MDD (major depressive disorder), recurrent episode, severe: Continue cross-taper. Patient started Effexor 150 today. (3) Generalized anxiety disorder with panic attacks: Continue BuSpar Remeron and Effexor combination (4) Post traumatic stress disorder (PTSD): Same as above (5) Borderline personality disorder: Encouraged to participate in unit programming Plan 08/12/25 - B12 1000 mcg IM 1 dose today, next dose on Tuesday, then continue once a week until completing 4 doses. - continue medications without changes -Effexor 150 mg p.o. daily -Abilify 7.5mg daily -Buspar 15mg BID -propranolol 10mg TID -Klonopin 0.5mg BID prn for panic attacks -gabapentin 300mg TID prn for anxiety 08/11/25 -No medication changes. 08/10/25 -Today started higher dose of Effexor ER (150 mg p.o. every morning) -Will hold Abilify titration plan until tomorrow -Labs ordered for Tuesday including UA repeat of MDMA test. Also ordered B12 due to history of eating disorder and prolonged low appetite. Continue rest of medications without changes: -Abilify 7.5mg daily -Buspar 15mg BID with potential plan to titrate further in coming days -propranolol 10mg TID -Klonopin 0.5mg BID prn for panic attacks -gabapentin 300mg TID prn for anxiety 08/09/2025: -Increase Effexor ER to 150mg daily 08/08/2025: -Continue current medications and tx plan -Consider further abilify titration tomorrow 08/07/2025: -Increase mirtazapine to 30mg HS -Discontinue Celexa -Increase Effexor ER to 75mg daily 08/06/2025: The patient was admitted to the [facility] ([facility] mental health unit) on q15 min checks (behavioral with suicide precautions) for safety. The patient will participate in group, recreational, and milieu therapies and will be offered additional individual and family sessions as clinically appropriate. -Start cross-taper from citalopram to Effexor ER * Decrease citalopram from 40mg to 20mg tomorrow AM * Start Effexor ER 37.5mg daily -Increase mirtazapine from 7.5mg to 15mg HS -Discontinue trazodone -Continue Abilify 7.5mg daily -Continue Buspar 15mg BID with potential plan to titrate further in coming days -Start propranolol 10mg TID -Continue Klonopin 0.5mg BID prn for panic attacks -Start gabapentin 300mg TID prn for anxiety -Symptom questionnaires provided -Fasting lipid panel, HbA1c and Vit D ordered for tomorrow AM Inventory Assets Strengths: supportive relationships, willing to get treatment Needs: safety and stabilization, medication adjustment, additional coping skills, increased outpatient services Suicide Risk Level Suicide Risk Level: High-Moderate (q15 min suicide checks) (depression, anxiety and SI with plan but feels safe in the hospital and feels able to ask for help if she feels unsafe or needs additional support) Risk Factors Assessment Male: No : Yes Do You Have Access To A Gun?: No Health Problems: No Mental Health Diagnoses: Yes Substance Use Disorders: No Previous Attempt: No Family History of Suicide: No Previous Psychiatric Hospitalization: Yes Hopelessness: Yes Protective Factors Assessment Pentecostalism Beliefs: Yes : No Responsible for Young Children: Yes Employed: Yes Stable Relationships: Yes Supportive Family: Yes Good Rapport with Provider: Yes Interval History Identifying Information DIONISIO SANCHEZ is a 45-year-old F who currently lives in [place] with her children, has a history of depression, anxiety, borderline personality disorder, and was admitted on 08/05/25 12:51 on a 201 voluntary commitment for anxiety and depression with SI with plan of overdose. Chief Complaint "I guess I feel a little bit better, but still very anxious. Review of Systems Sleep Information Total Hours of Sleep: 7.5 Meal Information Percent Meal Consumed - Breakfast: 50 Percent Meal Consumed - Lunch: 75 Percent Meal Consumed - Dinner: 50 Medication Trials Celexa Subjective Subjective Patient was seen & assessed and interval progress reviewed with treatment team. According to staff patient looks more spontaneous. Rated her mood today at 5 out of 10 but complained about feeling bored. I received the results of the B12 level (193) and recommended the patient to get intramuscular vitamin B12 supplementation. She agreed. Patient received first injection today B12 1000 mcg IM. She will receive second dose on Tuesday. Patient is agreeable to this plan. Patient reported that she is tolerating the higher dose of Effexor well and feels like it is helping with her symptoms. Stated she has better energy and has been able to participate in groups today. Reported she felt dizzy this morning and was not sure if it was related to the medication but recalls feeling dizzy other times in the past prior to starting Effexor. Patient appeared future oriented, requested information regarding discharge planning. Stated that suicidal ideation is not as prominent but still has some bleeding episodes. Summary of Past History - Depression with anxiety -Eating disorder -PTSD Medication Trials Celexa Physical Exam Psychiatric Orientation: alert and oriented x 3 Apperance: appropriately dressed and appropriately groomed Eye Contact: good eye contact Motor Behavior: no abnormal motor movements Speech: normal rate/rhythm/volume of speech Affect: + depressed affect (Not tearful today) and + anxious affect Mood: + depressed mood and + anxious mood Thought Process: goal directed thought process and + perseveration Thought Content: + preoccupation and + cognitive distortions Suicidal Thoughts: denies suicidal thoughts (has been having thoughts recurrently but fleeting), denies suicidal plan and denies suicidal intent Homicidal Thoughts: denies homicidal thoughts Hallucinations: no auditory hallucinations and no visual hallucinations Cognition: recent memory grossly intact, remote memory grossly intact, attention grossly intact and language grossly intact Estimated Intelligence: consistent with education level Insight: + fair insight Judgment: + fair judgement Vital Signs (Past 24 Hours) Last Vital Signs Temp 36.3 C L 08/12/25 06:00 Pulse 99 H 08/12/25 06:27 Resp 16 08/12/25 06:00 BP 113/80 08/12/25 06:27 Pulse Ox 97 08/09/25 19:39 O2 Del Method Room Air 08/09/25 19:39 Results & Data ([facility]) Current Inpatient Medications Current Inpatient Medications: Current Inpatient Medications Acetaminophen (Acetaminophen 325 Mg Tab) 650 mg PO Q4H PRN PRN Reason: Headache or Minor Fever Stop: 09/04/25 14:09 Al Hydrox/Mg Hydrox/Simethicone (Aluminum/Magnesium Susp 30 Ml Udc) 30 ml PO Q4H PRN PRN Reason: GI Upset Stop: 09/04/25 14:09 Aripiprazole (Aripiprazole 15 Mg Tab) 7.5 mg PO DAILY MARIZOL Stop: 09/05/25 08:59 Last Admin: 08/12/25 08:48 Dose: 7.5 mg Bismuth Subsalicylate (Bismuth Subsalicylate 262 Mg Chew) 2 tab PO Q30M PRN PRN Reason: Loose Stool/Diarrhea Stop: 09/04/25 14:09 Buspirone HCl (Buspirone 15 Mg Tab) 15 mg PO BID MARIZOL Stop: 09/04/25 20:59 Last Admin: 08/12/25 08:49 Dose: 15 mg Clonazepam (Clonazepam 0.5 Mg Tab) 0.5 mg PO BID PRN PRN Reason: Anxiety Stop: 09/04/25 16:42 Last Admin: 08/10/25 19:00 Dose: 0.5 mg Folic Acid (Folic Acid 1 Mg Tab) 1 mg PO DAILY MARIZOL Stop: 09/05/25 08:59 Last Admin: 08/12/25 08:49 Dose: 1 mg Gabapentin (Gabapentin 300 Mg Cap) 300 mg PO TID PRN PRN Reason: anxiety Stop: 09/04/25 20:59 Last Admin: 08/09/25 21:49 Dose: 300 mg Hydroxyzine HCl (Hydroxyzine Hcl 25 Mg Tab) 50 mg PO HSZ PRN PRN Reason: Insomnia Stop: 09/04/25 14:09 Hydroxyzine HCl (Hydroxyzine Hcl 25 Mg Tab) 25 mg PO Q4H PRN PRN Reason: Anxiety Stop: 09/04/25 14:09 Last Admin: 08/09/25 16:47 Dose: 25 mg Magnesium Hydroxide (Magnesium Hydroxide Susp 30 Ml Udc) 30 ml PO DAILY PRN PRN Reason: Constipation Stop: 09/04/25 14:09 Mirtazapine (Mirtazapine Tab 15 Mg Tab) 30 mg PO HS MARIZOL Stop: 09/06/25 21:59 Last Admin: 08/11/25 20:46 Dose: 30 mg Propranolol HCl (Propranolol Hcl 10 Mg Tab) 10 mg PO TID MARIZOL Stop: 09/05/25 10:54 Last Admin: 08/12/25 08:49 Dose: 10 mg Sodium Chloride (Sodium Chloride 0.65% Na Soln 45 Ml ([place])) 1 - 2 sprays NA PRN PRN PRN Reason: Nasal Dryness/Congestion Stop: 09/04/25 14:09 Venlafaxine HCl (Venlafaxine Hcl Xr 150 Mg Capxr) 150 mg PO QAM MARIZOL Stop: 09/09/25 08:59 Last Admin: 08/12/25 08:49 Dose: 150 mg Mental Health & Subst Abuse Tx Psychiat[facility] Date Of Appointment With Psychiatric Provider: 09/02 Time of Appointment with Psychiatrist: 1:50pm Psychiatric Appointment Comment: In person appt. [address] [facility], [facility] Therapist Name of Therapist: Codi Burkett LCSW Therapist's Date of Therapist Appointment: 08/13/25 Time of Therapist Appointment: 11:00 AM Therapy Appointment Comment: Telehealth Appointment Shoe Repairman Name of Shoe Repairman: n/a Post Discharge Appointments Primary Care Physician Name Of Family Doctor/PCP: [facility]-Dr. Calvo Primary Care Provider Appointment Comment: Follow up at needed Contact Information Discharge Discharge Address: [address] [place] [address]
[2025-08-12 13:12] LABS: Appearance Urine Clear (Clear); Bacteria Urine Automated 1+ (None Seen); Cast Urine Automated 0-2 /lpf (0-2); Glucose Urine UA Negative (Negative); RBC Urine Automated 0-2 /hpf (0-2); WBC Urine Automated 21-50 /hpf (0-5)
[2025-08-12] MEDS ORDERED: CYANOCOBALAMIN 1000 MCG/ML VIAL IM SCH (13:15)
[2025-08-12] MEDS: CYANOCOBALAMIN 1000 MCG/ML VIAL IM ONE (14:07)
[2025-08-12] MEDS: CYANOCOBALAMIN 1000 MCG/ML VIAL IM SCH ×2 (14:56→16:03)
--- NOTE | 2025-08-13 10:16 | Psychiatric Progress Note ---
Date of Service August 13, 2025 Impression / Recommendations Impression DIONISIO SANCHEZ is a 45-year-old F who currently lives in [place] with her children, has a history of depression, anxiety, borderline personality disorder, and was admitted on 08/05/25 12:51 on a 201 voluntary commitment for anxiety and depression with SI with plan of overdose. Diagnostically consistent with major depressive disorder, recurrent episode, severe as well as generalized anxiety disorder with panic attacks and suspected borderline personality disorder vs PTSD in the context of ineffective long-term SSRI therapy and ongoing psychosocial stressors at work. A: It appears that mood and anxiety severity fluctuate throughout the day. Morning seems to be more difficult than the afternoons. Sleep pattern abnormalities are also playing a role in mood fluctuations. Patient requires further medication adjustments. Inpatient treatment is the least restrictive option. Overall, I spent a total of 30 minutes on this case including meeting with the patient, reviewing the chart, nursing report, multidisciplinary team meeting, orders, and documentation. (1) Depression with suicidal ideation: Continue suicide precautions/observations (2) MDD (major depressive disorder), recurrent episode, severe: (3) Generalized anxiety disorder with panic attacks: (4) Post traumatic stress disorder (PTSD): (5) Borderline personality disorder: Plan 08/13/25 Continue current medications without changes Add magnesium 400 mg at bedtime for insomnia Monitor mood and sleep 08/12/25 - B12 1000 mcg IM 1 dose today, next dose on Tuesday, then continue once a week until completing 4 doses. - continue medications without changes -Effexor 150 mg p.o. daily -Abilify 7.5mg daily -Buspar 15mg BID -propranolol 10mg TID -Klonopin 0.5mg BID prn for panic attacks -gabapentin 300mg TID prn for anxiety 08/11/25 -No medication changes. 08/10/25 -Today started higher dose of Effexor ER (150 mg p.o. every morning) -Will hold Abilify titration plan until tomorrow -Labs ordered for Tuesday including UA repeat of MDMA test. Also ordered B12 due to history of eating disorder and prolonged low appetite. Continue rest of medications without changes: -Abilify 7.5mg daily -Buspar 15mg BID with potential plan to titrate further in coming days -propranolol 10mg TID -Klonopin 0.5mg BID prn for panic attacks -gabapentin 300mg TID prn for anxiety 08/09/2025: -Increase Effexor ER to 150mg daily 08/08/2025: -Continue current medications and tx plan -Consider further abilify titration tomorrow 08/07/2025: -Increase mirtazapine to 30mg HS -Discontinue Celexa -Increase Effexor ER to 75mg daily 08/06/2025: The patient was admitted to the [facility] ([facility]) on q15 min checks (behavioral with suicide precautions) for safety. The patient will participate in group, recreational, and milieu therapies and will be offered additional individual and family sessions as clinically appropriate. -Start cross-taper from citalopram to Effexor ER * Decrease citalopram from 40mg to 20mg tomorrow AM * Start Effexor ER 37.5mg daily -Increase mirtazapine from 7.5mg to 15mg HS -Discontinue trazodone -Continue Abilify 7.5mg daily -Continue Buspar 15mg BID with potential plan to titrate further in coming days -Start propranolol 10mg TID -Continue Klonopin 0.5mg BID prn for panic attacks -Start gabapentin 300mg TID prn for anxiety -Symptom questionnaires provided -Fasting lipid panel, HbA1c and Vit D ordered for tomorrow AM Inventory Assets Strengths: supportive relationships, willing to get treatment Needs: safety and stabilization, medication adjustment, additional coping skills, increased outpatient services Suicide Risk Level Suicide Risk Level: High-Moderate (q15 min suicide checks) (depression, anxiety and SI with plan but feels safe in the hospital and feels able to ask for help if she feels unsafe or needs additional support) Risk Factors Assessment Male: No : Yes Do You Have Access To A Gun?: No Health Problems: No Mental Health Diagnoses: Yes Substance Use Disorders: No Previous Attempt: No Family History of Suicide: No Previous Psychiatric Hospitalization: Yes Hopelessness: Yes Protective Factors Assessment Jain Beliefs: Yes : No Responsible for Young Children: Yes Employed: Yes Stable Relationships: Yes Supportive Family: Yes Good Rapport with Provider: Yes Interval History Identifying Information DIONISIO SANCHEZ is a 45-year-old F who currently lives in [place] with her children, has a history of depression, anxiety, borderline personality disorder, and was admitted on 08/05/25 12:51 on a 201 voluntary commitment for anxiety and depression with SI with plan of overdose. Chief Complaint "I feel little bit better today but I did not sleep well". Review of Systems Sleep Information Total Hours of Sleep: 9 Meal Information Percent Meal Consumed - Breakfast: 50 Percent Meal Consumed - Lunch: 70 Percent Meal Consumed - Dinner: 80 Medication Trials Celexa Subjective Subjective Patient was seen & assessed and interval progress reviewed with nursing and s ocial work. He according to staff patient reported feeling scared and irritable. She rated her mood at 2 out of 10 this morning (yesterday was 5 out of 10). I evaluated the patient in the afternoon after she participated in a few group activities. Her affect appeared slightly brighter than in the morning. Patient complained about poor sleep last night. We discussed adding magnesium. Patient agreed with the plan. Patient denies suicidal ideations today. Reported she feels the medication is helping and her mood is slightly better; however, feels more anxious today. We discussed concerns about body sensations that can be interpreted as anxiety but may stem from the use of multiple serotonergic medications. Patient is reluctant to lower or discontinue any of her medications. She was educated about signs and symptoms of serotonin syndrome. I offered to lower buspirone but patient declined. At the time of the evaluation there was no evidence of involuntary movements, tremors or jerking movements. Summary of Past History - Depression with anxiety -Eating disorder -PTSD Medication Trials Celexa Physical Exam Psychiatric Orientation: alert and oriented x 3 Apperance: appropriately dressed and appropriately groomed Eye Contact: good eye contact Motor Behavior: no abnormal motor movements Speech: normal rate/rhythm/volume of speech Affect: + constricted affect Mood: + depressed mood and + anxious mood Thought Process: goal directed thought process Thought Content: + preoccupation Suicidal Thoughts: denies suicidal thoughts Homicidal Thoughts: denies homicidal thoughts Hallucinations: no auditory hallucinations and no visual hallucinations Cognition: recent memory grossly intact, remote memory grossly intact, attention grossly intact and language grossly intact Estimated Intelligence: consistent with education level Insight: + fair insight Judgment: + fair judgement Vital Signs (Past 24 Hours) Last Vital Signs Temp 36.4 C L 08/13/25 06:00 Pulse 91 H 08/13/25 06:16 Resp 16 08/13/25 06:00 BP 108/72 08/13/25 06:16 Pulse Ox 97 08/09/25 19:39 O2 Del Method Room Air 08/09/25 19:39 Results & Data ([facility]) Laboratory Results Laboratory Results - last 24 hr 08/12/25 08/12/25 10:13 11:45 Vitamin B12 193 Urine Color Yellow Urine Appearance Clear Urine pH 6.5 Ur Specific [place] 1.015 Urine Protein Negative Urine Glucose (UA) Negative Urine Ketones Negative Urine Blood Negative Urine Nitrite Negative Urine Bilirubin Negative Urine Urobilinogen Negative Ur Leukocyte Esterase 3+ H Urine WBC (Auto) 21-50 H Urine RBC (Auto) 0-2 U Hyaline Cast (Auto) 0-2 U Epithel Cells (Auto) 3-5 H Urine Bacteria (Auto) 1+ H Urine MDEA Pending MDMA Pending Urine MDMA Pending Current Inpatient Medications Current Inpatient Medications: Current Inpatient Medications Acetaminophen (Acetaminophen 325 Mg Tab) 650 mg PO Q4H PRN PRN Reason: Headache or Minor Fever Stop: 09/04/25 14:09 Al Hydrox/Mg Hydrox/Simethicone (Aluminum/Magnesium Susp 30 Ml Udc) 30 ml PO Q4H PRN PRN Reason: GI Upset Stop: 09/04/25 14:09 Aripiprazole (Aripiprazole 15 Mg Tab) 7.5 mg PO DAILY MARIZOL Stop: 09/05/25 08:59 Last Admin: 08/13/25 08:44 Dose: 7.5 mg Bismuth Subsalicylate (Bismuth Subsalicylate 262 Mg Chew) 2 tab PO Q30M PRN PRN Reason: Loose Stool/Diarrhea Stop: 09/04/25 14:09 Buspirone HCl (Buspirone 15 Mg Tab) 15 mg PO BID MARIZOL Stop: 09/04/25 20:59 Last Admin: 08/13/25 08:45 Dose: 15 mg Clonazepam (Clonazepam 0.5 Mg Tab) 0.5 mg PO BID PRN PRN Reason: Anxiety Stop: 09/04/25 16:42 Last Admin: 08/10/25 19:00 Dose: 0.5 mg Cyanocobalamin (Cyanocobalamin 1000 Mcg/Ml Vial) 1,000 mcg IM ONE ONE Stop: 08/14/25 15:01 Folic Acid (Folic Acid 1 Mg Tab) 1 mg PO DAILY MARIZOL Stop: 09/05/25 08:59 Last Admin: 08/13/25 08:46 Dose: 1 mg Gabapentin (Gabapentin 300 Mg Cap) 300 mg PO TID PRN PRN Reason: anxiety Stop: 09/04/25 20:59 Last Admin: 08/09/25 21:49 Dose: 300 mg Hydroxyzine HCl (Hydroxyzine Hcl 25 Mg Tab) 50 mg PO HSZ PRN PRN Reason: Insomnia Stop: 09/04/25 14:09 Last Admin: 08/12/25 20:43 Dose: 50 mg Hydroxyzine HCl (Hydroxyzine Hcl 25 Mg Tab) 25 mg PO Q4H PRN PRN Reason: Anxiety Stop: 09/04/25 14:09 Last Admin: 08/09/25 16:47 Dose: 25 mg Magnesium Hydroxide (Magnesium Hydroxide Susp 30 Ml Udc) 30 ml PO DAILY PRN PRN Reason: Constipation Stop: 09/04/25 14:09 Mirtazapine (Mirtazapine Tab 15 Mg Tab) 30 mg PO HS MARIZOL Stop: 09/06/25 21:59 Last Admin: 08/12/25 22:02 Dose: 30 mg Propranolol HCl (Propranolol Hcl 10 Mg Tab) 10 mg PO TID MARIZOL Stop: 09/05/25 10:54 Last Admin: 08/13/25 08:46 Dose: 10 mg Sodium Chloride (Sodium Chloride 0.65% Na Soln 45 Ml ([place])) 1 - 2 sprays NA PRN PRN PRN Reason: Nasal Dryness/Congestion Stop: 09/04/25 14:09 Venlafaxine HCl (Venlafaxine Hcl Xr 150 Mg Capxr) 150 mg PO QAM MARIZOL Stop: 09/09/25 08:59 Last Admin: 08/13/25 08:46 Dose: 150 mg Mental Health & Subst Abuse Tx Psychiatrist [facility] Date Of Appointment With Psychiatric Provider: 09/02 Time of Appointment with Psychiatrist: 1:50pm Psychiatric Appointment Comment: In person appt. [address] [facility], [address], [place] Therapist Name of Therapist: Codi Burkett LCSW Therapist's Date of Therapist Appointment: 08/13/25 Time of Therapist Appointment: 11:00 AM Therapy Appointment Comment: Telehealth Appointment Manager Business Management Name of Manager Business Management: n/a Post Discharge Appointments Primary Care Physician Name Of Family Doctor/PCP: [facility]-Dr. Calvo Primary Care Provider Appointment Comment: Follow up at needed Contact Information Discharge Discharge Address: [address] [place] [address]
[2025-08-13] MEDS: MAGNESIUM OXIDE 400 MG TAB PO SCH (21:53)
--- NOTE | 2025-08-14 12:12 | Psychiatric Progress Note ---
Date of Service August 14, 2025 Impression / Recommendations Impression DIONISIO SANCHEZ is a 45-year-old F who currently lives in [place] with her children, has a history of depression, anxiety, borderline personality disorder, and was admitted on 08/05/25 12:51 on a 201 voluntary commitment for anxiety and depression with SI with plan of overdose. Diagnostically consistent with major depressive disorder, recurrent episode, severe as well as generalized anxiety disorder with panic attacks and suspected borderline personality disorder vs PTSD in the context of ineffective long-term SSRI therapy and ongoing psychosocial stressors at work. A: Patient exhibits improved affect and sleep pattern. She is showing more interest in group activities and has appropriate socialization with peers and staff. Appears to be tolerating medications well. Denies suicidal ideation plans or intent. There is no evidence of involuntary movement. There is no evidence of serotonin syndrome related symptoms. Patient wishes to continue medications without changes Overall, I spent a total of 30 minutes on this case including meeting with the patient, reviewing the chart, nursing report, multidisciplinary team meeting, orders, and documentation. (1) Depression with suicidal ideation: Continue suicide precautions/observations (2) MDD (major depressive disorder), recurrent episode, severe: (3) Generalized anxiety disorder with panic attacks: (4) Post traumatic stress disorder (PTSD): (5) Borderline personality disorder: Plan 08/14/25 Continue current medications without changes Patient received second dose of B12 1000 mcg IM today. 08/13/25 Continue current medications without changes Add magnesium 400 mg at bedtime for insomnia Monitor mood and sleep 08/12/25 - B12 1000 mcg IM 1 dose today, next dose on Tuesday, then continue once a week until completing 4 doses. - continue medications without changes -Effexor 150 mg p.o. daily -Abilify 7.5mg daily -Buspar 15mg BID -propranolol 10mg TID -Klonopin 0.5mg BID prn for panic attacks -gabapentin 300mg TID prn for anxiety 08/11/25 -No medication changes. 08/10/25 -Today started higher dose of Effexor ER (150 mg p.o. every morning) -Will hold Abilify titration plan until tomorrow -Labs ordered for Tuesday including UA repeat of MDMA test. Also ordered B12 due to history of eating disorder and prolonged low appetite. Continue rest of medications without changes: -Abilify 7.5mg daily -Buspar 15mg BID with potential plan to titrate further in coming days -propranolol 10mg TID -Klonopin 0.5mg BID prn for panic attacks -gabapentin 300mg TID prn for anxiety 08/09/2025: -Increase Effexor ER to 150mg daily 08/08/2025: -Continue current medications and tx plan -Consider further abilify titration tomorrow 08/07/2025: -Increase mirtazapine to 30mg HS -Discontinue Celexa -Increase Effexor ER to 75mg daily 08/06/2025: The patient was admitted to the [facility] ([facility]) on q15 min checks (behavioral with suicide precautions) for safety. The patient will participate in group, recreational, and milieu therapies and will be offered additional individual and family sessions as clinically appropriate. -Start cross-taper from citalopram to Effexor ER * Decrease citalopram from 40mg to 20mg tomorrow AM * Start Effexor ER 37.5mg daily -Increase mirtazapine from 7.5mg to 15mg HS -Discontinue trazodone -Continue Abilify 7.5mg daily -Continue Buspar 15mg BID with potential plan to titrate further in coming days -Start propranolol 10mg TID -Continue Klonopin 0.5mg BID prn for panic attacks -Start gabapentin 300mg TID prn for anxiety -Symptom questionnaires provided -Fasting lipid panel, HbA1c and Vit D ordered for tomorrow AM Inventory Assets Strengths: supportive relationships, willing to get treatment Needs: safety and stabilization, medication adjustment, additional coping skills, increased outpatient services Suicide Risk Level Suicide Risk Level: High-Moderate (q15 min suicide checks) (depression, anxiety and SI with plan but feels safe in the hospital and feels able to ask for help if she feels unsafe or needs additional support) Risk Factors Assessment Male: No : Yes Do You Have Access To A Gun?: No Health Problems: No Mental Health Diagnoses: Yes Substance Use Disorders: No Previous Attempt: No Family History of Suicide: No Previous Psychiatric Hospitalization: Yes Hopelessness: Yes Protective Factors Assessment Rastafari Beliefs: Yes : No Responsible for Young Children: Yes Employed: Yes Stable Relationships: Yes Supportive Family: Yes Good Rapport with Provider: Yes Interval History Identifying Information DIONISIO SANCHEZ is a 45-year-old F who currently lives in [place] with her children, has a history of depression, anxiety, borderline personality disorder, and was admitted on 08/05/25 12:51 on a 201 voluntary commitment for anxiety and depression with SI with plan of overdose. Chief Complaint "I feel a little better today". Review of Systems Sleep Information Total Hours of Sleep: 7 Meal Information Percent Meal Consumed - Breakfast: 75 Percent Meal Consumed - Lunch: 70 Percent Meal Consumed - Dinner: 80 Medication Trials Celexa Subjective Subjective Patient was seen & assessed and interval progress reviewed with treatment team. According to staff patient woke up very anxious in the morning. Slept 7 hours. Family meeting scheduled for . When we met around noon time patient reported that she is feeling better today however she is still presented with anxious affect. Her reciprocity during conversation is slightly improved. We discussed concerns about polypharmacy, but patient prefers to continue current medications without changes. She denies suicidal homicidal ideation plan or intent. Reported she is looking forward to going home on getting united with her daughters. After 3 PM she appeared less energized and spent more time allowing her room laying in bed with eyes open. Summary of Past History - Depression with anxiety -Eating disorder -PTSD Medication Trials Celexa Physical Exam Psychiatric Orientation: alert and oriented x 3 Apperance: appropriately dressed and appropriately groomed Eye Contact: good eye contact Motor Behavior: no abnormal motor movements Speech: normal rate/rhythm/volume of speech Affect: + anxious affect Mood: + anxious mood Thought Process: goal directed thought process Thought Content: + preoccupation and reality based without delusions Suicidal Thoughts: denies suicidal thoughts, denies suicidal plan and denies suicidal intent Homicidal Thoughts: denies homicidal thoughts Hallucinations: no auditory hallucinations and no visual hallucinations Cognition: recent memory grossly intact, remote memory grossly intact, attention grossly intact and language grossly intact Estimated Intelligence: consistent with education level Insight: + fair insight Judgment: + fair judgement Vital Signs (Past 24 Hours) Last Vital Signs Temp 35.9 C L 08/14/25 06:50 Pulse 92 H 08/14/25 09:06 Resp 18 08/14/25 06:50 BP 104/73 08/14/25 09:06 Pulse Ox 97 08/14/25 06:50 O2 Del Method Room Air 08/14/25 06:50 Results & Data ([facility]) Current Inpatient Medications Current Inpatient Medications: Current Inpatient Medications Acetaminophen (Acetaminophen 325 Mg Tab) 650 mg PO Q4H PRN PRN Reason: Headache or Minor Fever Stop: 09/04/25 14:09 Al Hydrox/Mg Hydrox/Simethicone (Aluminum/Magnesium Susp 30 Ml Udc) 30 ml PO Q4H PRN PRN Reason: GI Upset Stop: 09/04/25 14:09 Aripiprazole (Aripiprazole 15 Mg Tab) 7.5 mg PO DAILY MARIZOL Stop: 09/05/25 08:59 Last Admin: 08/14/25 09:09 Dose: 7.5 mg Bismuth Subsalicylate (Bismuth Subsalicylate 262 Mg Chew) 2 tab PO Q30M PRN PRN Reason: Loose Stool/Diarrhea Stop: 09/04/25 14:09 Buspirone HCl (Buspirone 15 Mg Tab) 15 mg PO BID MARIZOL Stop: 09/04/25 20:59 Last Admin: 08/14/25 09:10 Dose: 15 mg Clonazepam (Clonazepam 0.5 Mg Tab) 0.5 mg PO BID PRN PRN Reason: Anxiety Stop: 09/04/25 16:42 Last Admin: 08/13/25 15:52 Dose: 0.5 mg Cyanocobalamin (Cyanocobalamin 1000 Mcg/Ml Vial) 1,000 mcg IM ONE ONE Stop: 08/14/25 15:01 Folic Acid (Folic Acid 1 Mg Tab) 1 mg PO DAILY MARIZOL Stop: 09/05/25 08:59 Last Admin: 08/14/25 09:10 Dose: 1 mg Gabapentin (Gabapentin 300 Mg Cap) 300 mg PO TID PRN PRN Reason: anxiety Stop: 09/04/25 20:59 Last Admin: 08/09/25 21:49 Dose: 300 mg Hydroxyzine HCl (Hydroxyzine Hcl 25 Mg Tab) 50 mg PO HSZ PRN PRN Reason: Insomnia Stop: 09/04/25 14:09 Last Admin: 08/12/25 20:43 Dose: 50 mg Hydroxyzine HCl (Hydroxyzine Hcl 25 Mg Tab) 25 mg PO Q4H PRN PRN Reason: Anxiety Stop: 09/04/25 14:09 Last Admin: 08/09/25 16:47 Dose: 25 mg Magnesium Hydroxide (Magnesium Hydroxide Susp 30 Ml Udc) 30 ml PO DAILY PRN PRN Reason: Constipation Stop: 09/04/25 14:09 Magnesium Oxide (Magnesium Oxide 400 Mg Tab) 400 mg PO HS MARIZOL Stop: 09/12/25 21:59 Last Admin: 08/13/25 21:53 Dose: 400 mg Mirtazapine (Mirtazapine Tab 15 Mg Tab) 30 mg PO HS MARIZOL Stop: 09/06/25 21:59 Last Admin: 08/13/25 21:53 Dose: 30 mg Propranolol HCl (Propranolol Hcl 10 Mg Tab) 10 mg PO TID MARIZOL Stop: 09/05/25 10:54 Last Admin: 08/14/25 09:11 Dose: 10 mg Sodium Chloride (Sodium Chloride 0.65% Na Soln 45 Ml ([place])) 1 - 2 sprays NA PRN PRN PRN Reason: Nasal Dryness/Congestion Stop: 09/04/25 14:09 Venlafaxine HCl (Venlafaxine Hcl Xr 150 Mg Capxr) 150 mg PO QAM MARIZOL Stop: 09/09/25 08:59 Last Admin: 08/14/25 09:11 Dose: 150 mg Mental Health & Subst Abuse Tx Psychiatrist Name of Psychiatrist: [facility] Psychiatrist's Date Of Appointment With Psychiatric Provider: 09/02 Time of Appointment with Psychiatrist: 1:50pm Psychiatric Appointment Comment: In person appt. [address] Therapist Name of Therapist: Codi Burkett LCSW Therapist's Date of Therapist Appointment: 08/28/25 Time of Therapist Appointment: 12:00 PM Therapy Appointment Comment: Telehealth Appointment Executor Of Estate Name of Executor Of Estate: n/a Post Discharge Appointments Primary Care Physician Name Of Family Doctor/PCP: [facility]-Dr. Calvo Primary Care Provider Appointment Comment: Follow up at needed Contact Information Discharge Discharge Address: [address] [place] [address]
[2025-08-14] MEDS ORDERED: CYANOCOBALAMIN 1000 MCG/ML VIAL IM ONE (13:00)
[2025-08-14] MEDS: CYANOCOBALAMIN 1000 MCG/ML VIAL IM ONE (16:06)
[2025-08-15 06:24] VITALS: TEMP 97.5
--- NOTE | 2025-08-15 09:47 | Psychiatric Progress Note ---
Date of Service August 15, 2025 Impression / Recommendations Impression DIONISIO SANCHEZ is a 45-year-old F who currently lives in [place] with her children, has a history of depression, anxiety, borderline personality disorder, and was admitted on 08/05/25 12:51 on a 201 voluntary commitment for anxiety and depression with SI with plan of overdose. Diagnostically consistent with major depressive disorder, recurrent episode, severe as well as generalized anxiety disorder with panic attacks and suspected borderline personality disorder vs PTSD in the context of ineffective long-term SSRI therapy and ongoing psychosocial stressors at work. A: Tolerating medications well. Approaching baseline. Denies suicidal or homicidal ideations plan or intent. Appears to have a good support system. Preparing for discharge tomorrow Overall, I spent a total of 30 minutes on this case including meeting with the patient, reviewing the chart, nursing report, multidisciplinary team meeting, orders, and documentation. (1) Depression with suicidal ideation: Continue suicide precautions/observations (2) MDD (major depressive disorder), recurrent episode, severe: (3) Generalized anxiety disorder with panic attacks: (4) Post traumatic stress disorder (PTSD): (5) Borderline personality disorder: Plan 08/15/25: Continue current medications Prepare for discharge tomorrow 08/14/25 Continue current medications without changes Patient received second dose of B12 1000 mcg IM today. 08/13/25 Continue current medications without changes Add magnesium 400 mg at bedtime for insomnia Monitor mood and sleep 08/12/25 - B12 1000 mcg IM 1 dose today, next dose on Tuesday, then continue once a week until completing 4 doses. - continue medications without changes -Effexor 150 mg p.o. daily -Abilify 7.5mg daily -Buspar 15mg BID -propranolol 10mg TID -Klonopin 0.5mg BID prn for panic attacks -gabapentin 300mg TID prn for anxiety 08/11/25 -No medication changes. 08/10/25 -Today started higher dose of Effexor ER (150 mg p.o. every morning) -Will hold Abilify titration plan until tomorrow -Labs ordered for Tuesday including UA repeat of MDMA test. Also ordered B12 due to history of eating disorder and prolonged low appetite. Continue rest of medications without changes: -Abilify 7.5mg daily -Buspar 15mg BID with potential plan to titrate further in coming days -propranolol 10mg TID -Klonopin 0.5mg BID prn for panic attacks -gabapentin 300mg TID prn for anxiety 08/09/2025: -Increase Effexor ER to 150mg daily 08/08/2025: -Continue current medications and tx plan -Consider further abilify titration tomorrow 08/07/2025: -Increase mirtazapine to 30mg HS -Discontinue Celexa -Increase Effexor ER to 75mg daily 08/06/2025: The patient was admitted to the [facility] ([facility] mental health unit) on q15 min checks (behavioral with suicide precautions) for safety. The patient will participate in group, recreational, and milieu therapies and will be offere d additional individual and family sessions as clinically appropriate. -Start cross-taper from citalopram to Effexor ER * Decrease citalopram from 40mg to 20mg tomorrow AM * Start Effexor ER 37.5mg daily -Increase mirtazapine from 7.5mg to 15mg HS -Discontinue trazodone -Continue Abilify 7.5mg daily -Continue Buspar 15mg BID with potential plan to titrate further in coming days -Start propranolol 10mg TID -Continue Klonopin 0.5mg BID prn for panic attacks -Start gabapentin 300mg TID prn for anxiety -Symptom questionnaires provided -Fasting lipid panel, HbA1c and Vit D ordered for tomorrow AM Inventory Assets Strengths: supportive relationships, willing to get treatment Needs: safety and stabilization, medication adjustment, additional coping skills, increased outpatient services Suicide Risk Level Suicide Risk Level: High-Moderate (q15 min suicide checks) (depression, anxiety and SI with plan but feels safe in the hospital and feels able to ask for help if she feels unsafe or needs additional support) Risk Factors Assessment Male: No : Yes Do You Have Access To A Gun?: No Health Problems: No Mental Health Diagnoses: Yes Substance Use Disorders: No Previous Attempt: No Family History of Suicide: No Previous Psychiatric Hospitalization: Yes Hopelessness: Yes Protective Factors Assessment Christian Beliefs: Yes : No Responsible for Young Children: Yes Employed: Yes Stable Relationships: Yes Supportive Family: Yes Good Rapport with Provider: Yes Interval History Identifying Information DIONISIO SANCHEZ is a 45-year-old F who currently lives in [place] with her children, has a history of depression, anxiety, borderline personality disorder, and was admitted on 08/05/25 12:51 on a 201 voluntary commitment for anxiety and depression with SI with plan of overdose. Chief Complaint "I am okay, Feels better" Review of Systems Sleep Information Total Hours of Sleep: 9 Meal Information Percent Meal Consumed - Breakfast: 75 Percent Meal Consumed - Lunch: 50 Percent Meal Consumed - Dinner: 90 Medication Trials Celexa Subjective Subjective Patient was seen & assessed and interval progress reviewed with nursing and social work. According to staff patient has been at baseline. However, today he brightens with interaction. Ate 90% of her food. Rated her mood 6 out of 10. Patient needed as needed clonazepam last night for anxiety. Support meeting will be conducted with her parents. During the evaluation today patient presented slightly brighter affect. She denied side effects from medication. Reported she had a better night of sleep. Patient denies suicidal ideation plan or intent. She appeared future oriented interested in returning home with her daughters. Summary of Past History - Depression with anxiety -Eating disorder -PTSD Medication Trials Celexa Physical Exam Psychiatric Orientation: alert and oriented x 3 Apperance: appropriately dressed and appropriately groomed Eye Contact: good eye contact Motor Behavior: no abnormal motor movements Speech: normal rate/rhythm/volume of speech Affect: + constricted affect Mood: no depressed mood and no anxious mood Thought Process: goal directed thought process Suicidal Thoughts: denies suicidal thoughts, denies suicidal plan and denies suicidal intent Homicidal Thoughts: denies homicidal thoughts Hallucinations: no auditory hallucinations and no visual hallucinations Cognition: recent memory grossly intact, remote memory grossly intact, attention grossly intact and language grossly intact Estimated Intelligence: consistent with education level Insight: + fair insight Judgment: + fair judgement Vital Signs (Past 24 Hours) Last Vital Signs Temp 36.4 C L 08/15/25 06:22 Pulse 86 08/15/25 06:23 Resp 16 08/15/25 06:22 BP 106/72 08/15/25 06:23 Pulse Ox 97 08/14/25 06:50 O2 Del Method Room Air 08/14/25 06:50 Results & Data ([facility]) Current Inpatient Medications Current Inpatient Medications: Current Inpatient Medications Acetaminophen (Acetaminophen 325 Mg Tab) 650 mg PO Q4H PRN PRN Reason: Headache or Minor Fever Stop: 09/04/25 14:09 Al Hydrox/Mg Hydrox/Simethicone (Aluminum/Magnesium Susp 30 Ml Udc) 30 ml PO Q4H PRN PRN Reason: GI Upset Stop: 09/04/25 14:09 Aripiprazole (Aripiprazole 15 Mg Tab) 7.5 mg PO DAILY MARIZOL Stop: 09/05/25 08:59 Last Admin: 08/15/25 09:05 Dose: 7.5 mg Bismuth Subsalicylate (Bismuth Subsalicylate 262 Mg Chew) 2 tab PO Q30M PRN PRN Reason: Loose Stool/Diarrhea Stop: 09/04/25 14:09 Buspirone HCl (Buspirone 15 Mg Tab) 15 mg PO BID MARIZOL Stop: 09/04/25 20:59 Last Admin: 08/15/25 09:07 Dose: 15 mg Clonazepam (Clonazepam 0.5 Mg Tab) 0.5 mg PO BID PRN PRN Reason: Anxiety Stop: 09/04/25 16:42 Last Admin: 08/14/25 15:38 Dose: 0.5 mg Folic Acid (Folic Acid 1 Mg Tab) 1 mg PO DAILY MARIZOL Stop: 09/05/25 08:59 Last Admin: 08/15/25 09:07 Dose: 1 mg Gabapentin (Gabapentin 300 Mg Cap) 300 mg PO TID PRN PRN Reason: anxiety Stop: 09/04/25 20:59 Last Admin: 08/09/25 21:49 Dose: 300 mg Hydroxyzine HCl (Hydroxyzine Hcl 25 Mg Tab) 50 mg PO HSZ PRN PRN Reason: Insomnia Stop: 09/04/25 14:09 Last Admin: 08/12/25 20:43 Dose: 50 mg Hydroxyzine HCl (Hydroxyzine Hcl 25 Mg Tab) 25 mg PO Q4H PRN PRN Reason: Anxiety Stop: 09/04/25 14:09 Last Admin: 08/09/25 16:47 Dose: 25 mg Magnesium Hydroxide (Magnesium Hydroxide Susp 30 Ml Udc) 30 ml PO DAILY PRN PRN Reason: Constipation Stop: 09/04/25 14:09 Magnesium Oxide (Magnesium Oxide 400 Mg Tab) 400 mg PO HS MARIZOL Stop: 09/12/25 21:59 Last Admin: 08/14/25 21:56 Dose: 400 mg Mirtazapine (Mirtazapine Tab 15 Mg Tab) 30 mg PO HS MARIZOL Stop: 09/06/25 21:59 Last Admin: 08/14/25 21:56 Dose: 30 mg Propranolol HCl (Propranolol Hcl 10 Mg Tab) 10 mg PO TID MARIZOL Stop: 09/05/25 10:54 Last Admin: 08/15/25 09:07 Dose: 10 mg Sodium Chloride (Sodium Chloride 0.65% Na Soln 45 Ml ([place])) 1 - 2 sprays NA PRN PRN PRN Reason: Nasal Dryness/Congestion Stop: 09/04/25 14:09 Venlafaxine HCl (Venlafaxine Hcl Xr 150 Mg Capxr) 150 mg PO QAM MARIZOL Stop: 09/09/25 08:59 Last Admin: 08/15/25 09:08 Dose: 150 mg Mental Health & Subst Abuse Tx Psychiatrist [facility] Date Of Appointment With Psychiatric Provider: 09/02 Time of Appointment with Psychiatrist: 1:50pm Psychiatric Appointment Comment: In person appt. [facility], [address] Therapist Name of Therapist: Codi Burkett LCSW Therapist's Date of Therapist Appointment: 08/28/25 Time of Therapist Appointment: 12:00 PM Therapy Appointment Comment: Telehealth Appointment [employer] Name of [employer]or Of [employer]: n/a Post Discharge Appointments Primary Care Physician Name Of Family Doctor/PCP: [facility]-Dr. Calvo Primary Care Provider Appointment Comment: Follow up at needed Contact Information Discharge Discharge Address: [address] [place] [address]
--- NOTE | 2025-08-15 15:59 | Discharge Summary ---
Date of Service August 16, 2025 History of Present Illness She presents for psychiatric admission for worsening anxiety and depression and SI with plan of overdosing on trazodone in the context of multiple psychosocial stressors including work and parenting. She feels unable to manage her "life, my work, my kids". Her current symptoms began approximately in April shortly before her inpatient psychiatric hospitalization at [facility]. Following her hospitalization at [facility] in April she experienced a brief period of improvement lasting a few weeks before entering what she describes as "total downward spiral" due to ongoing work stress. She reports her anxiety has become crippling characterized by constant racing thoughts that she cannot stop. She describes her mind is continuously ruminating on work related concerns, specifically fears about making mistakes, losing her job, losing her house, and being unable to care for her children. Her anxiety also manifest physically with panic attacks occurring daily. Her depression presents with significant functional impairment, including extreme difficulty getting out of bed, low motivation and inability to provide meals and care for her children as she previously did. Her parents have been staying with her over recent weeks due to her level of functional impairment. She reports feeling guilty about not being a better and more involved parent due to how the depression is of affecting her functioning. She endorses feelings of helplessness and hopelessness describing that she continues to wish she was not alive. She also endorses cognitive difficulties and poor concentration. She has lost weight due to poor appetite and reports chronic sleep difficulties with both trouble falling asleep and staying asleep often waking with panicky feelings. She also has prominent anhedonia. She has been able to find activities that previously brought her jay such as spending time with her children and being outdoors due to her racing thoughts. Suicidal thoughts have been present for approximately 2 months worsening about a month ago when she began specifically thinking about taking pills. She came to the hospital now because she felt unable to manage her life work her children and her racing thoughts would not stop. She expresses concern that everything will be the same when she leaves the hospital and reports feeling anxious when hearing about other patients who seem to have their lives together. She identifies work stress as the primary trigger for her symptoms describing "everything about work" as problematic. She works in [employer] at [employer] and has constant worry about making mistakes which then spirals into c atastrophic thinking about job loss and financial ruin. Parenting stress is also a factor and despite her parents being present to help with her daughter she reports still being unable to manage her responsibilities. She stopped drinking alcohol completely a couple of months ago. During the summer she was consuming 4-6 drinks per day for about 2 months which she felt was problematic. She identifies target symptoms of: "getting rid of the anxiety, the crippling racing thoughts, wanting to be alive again". She is current prescribed: abilify 7.5mg daily (had been higher, was being lowered to discontinue due to concerns about long-term concerns for muscle movements), buspar 15mg BID (started about 2 weeks ago), mirtazapine 7.5mg HS (since April), trazodone 75mg HS (had been on this a long time but not helpful), citalopram 40mg (many years), Klonopin 0.5mg BID prn (has been on this off and on for years). Psychiatric ROS notable for no current nor history of symptoms of blake, OCD. Some possible paranoia and psychosis in April but no symptoms currently. PTSD history. Eating disorder in adolescence. No history of self-harm. Physical Exam Psychiatric Orientation: alert and oriented x 3 Apperance: appropriately dressed Eye Contact: good eye contact Motor Behavior: steady gait and station Speech: normal rate/rhythm/volume of speech Affect: euthymic affect Mood: no depressed mood, no anxious mood and no irritable mood Thought Process: goal directed thought process Thought Content: reality based without delusions Suicidal Thoughts: denies suicidal thoughts, denies suicidal plan and denies suicidal intent Homicidal Thoughts: denies homicidal thoughts Hallucinations: no auditory hallucinations and no visual hallucinations Cognition: recent memory grossly intact, remote memory grossly intact and attention grossly intact Estimated Intelligence: average estimated intelligence and consistent with education level Insight: good insight Judgment: good judgement Vital Signs (Past 24 Hours) Last Vital Signs Temp 36.4 C L 08/15/25 06:22 Pulse 82 08/15/25 14:34 Resp 16 08/15/25 06:22 BP 112/78 08/15/25 14:34 Pulse Ox 97 08/14/25 06:50 O2 Del Method Room Air 08/14/25 06:50 No changes. Principal Diagnosis Major depressive disorder, recurrent, severe Generalized anxiety disorder PTSD by history Psychiatric Data See daily stay summary. In short, safety was maintained and the patient was cooperative with care. Medication changes included : Added propranolol -Increase mirtazapine to 15 mg -Added Effexor and titrated up to 150 mg -Continue gabapentin and BuSpar -Provided vitamin B12 supplementation -Discontinue trazodone and citalopram Patient tolerated this well. A family session was held and safety plan was c ompleted prior to discharge. Day of Discharge Assessment Today the patient voices readiness for discharge. They note improvement in mood and deny thoughts to harm self or others. Thoughts remain organized and they are improved from admission. There is no evidence of psychosis. They agree to take mediations as prescribed and keep follow-up appointments. They are stable for discharge to outpatient level of care. Discussed substance use concers regardind +ecstasy in UA appears to be a false positive from recently used Trazodone. Brief intervention was offered and accepted. Interventions provided on a daily basis (greater than 5 min in length) and included assessing readiness to quit, advice on how to reduce or abstain from use of drugs. Transition of Care Transition Of Care Record: was reviewed with the patient Advance Directives Advance Directives Information Provided: Yes Advance Directives: No Mental Health Advance Directive: No Advance Directives on File: No Living Will: No Power of Punch Press Feeder: No Advance Directives Reason:: Declines as Mental Health Visit. Suicide Risk Level Suicide Risk Level: Low (q15 min observation checks) Suicide Risk Level Comments: Appropriate for discharge Risk Factors Assessment Male: No : Yes Do You Have Access To A Gun?: No Health Problems: No Mental Health Diagnoses: Yes Substance Use Disorders: No Previous Attempt: No Family History of Suicide: No Previous Psychiatric Hospitalization: Yes Hopelessness: No Protective Factors Assessment Rastafari Beliefs: Yes : No Responsible for Young Children: Yes Employed: Yes Stable Relationships: Yes Supportive Family: Yes Good Rapport with Provider: Yes Tobacco Cessation at Discharge Tobacco Cessation Medication Prescribed at Discharge: Not Applicable/Non-Smoker Total Time Total Time Spent: Greater Than 30 Minutes Discharge Data Lab Results 08/05/25 08/05/25 08/07/25 08:25 08:43 08:10 WBC 5.49 RBC 4.35 Hgb 13.7 Hct 39.1 MCV 89.9 MCH 31.5 MCHC 35.0 RDW Std Deviation 35.8 L RDW Coeff of Lidia 10.9 L Plt Count 208 MPV 9.9 Immature Gran % (Auto) 0.2 Neut % (Auto) 77.2 Lymph % (Auto) 16.2 Mora % (Auto) 5.5 Eos % (Auto) 0.2 Baso % (Auto) 0.7 Neut # (Auto) 4.24 Lymph # (Auto) 0.89 L Mora # (Auto) 0.30 Eos # (Auto) 0.01 Baso # (Auto) 0.04 Immature Gran # (Auto) 0.01 Sodium 135 L Potassium 4.4 Chloride 101 Carbon Dioxide 24 Anion Gap 10 BUN 12 Creatinine 0.78 Est Cr Clr Drug Dosing 70.5 eGFR 94.22 BUN/Creatinine Ratio 15.4 Glucose 89 Estimat Average Glucose 103 Hemoglobin A1c 5.2 Calcium 9.4 Total Bilirubin 0.5 AST 9 L ALT 7 Alkaline Phosphatase 38 Total Protein 7.6 Albumin 4.3 Globulin 3.3 Albumin/Globulin Ratio 1.3 Triglycerides 123 Cholesterol 196 LDL Cholesterol, Calc 115 VLDL Cholesterol, Calc 25 HDL Cholesterol 56 Cholesterol/HDL Ratio 3.5 Vitamin B12 25-OH Vitamin D Total 50.9 TSH 2.851 HCG, Qual Negative Urine Color Yellow Urine Appearance Clear Urine pH 5.5 Ur Specific [place] 1.019 Urine Protein Negative Urine Glucose (UA) Negative Urine Ketones 1+ H Urine Blood Negative Urine Nitrite Negative Urine Bilirubin Negative Urine Urobilinogen Negative Ur Leukocyte Esterase 2+ H Urine WBC (Auto) 21-50 H Urine RBC (Auto) 0-2 U Hyaline Cast (Auto) 0-2 U Epithel Cells (Auto) 0-2 Urine Bacteria (Auto) 1+ H Urine Comment Salicylates < 3.0 L Urine Opiates Screen Neg Ur Methadone, Qual Neg Urine Fentanyl Screen Neg Acetaminophen < 3 L Urine Barbiturates Neg Ur Phencyclidine (PCP) Neg U Amphetamin/Meth Scrn Neg Urine MDEA negative MDMA (Ecstasy) Screen Pos H MDMA negative Urine MDMA negative U Benzodiazepines Scrn Neg Ur Cocaine Metabolite Neg U Marijuana (THC) Screen Neg Ethyl Alcohol mg/dL < 10.0 SARS-CoV-2, RNA, NAAT NEGATIVE 08/12/25 08/12/25 10:13 11:45 WBC RBC Hgb Hct MCV MCH MCHC RDW Std Deviation RDW Coeff of Lidia Plt Count MPV Immature Gran % (Auto) Neut % (Auto) Lymph % (Auto) Mora % (Auto) Eos % (Auto) Baso % (Auto) Neut # (Auto) Lymph # (Auto) Mora # (Auto) Eos # (Auto) Baso # (Auto) Immature Gran # (Auto) Sodium Potassium Chloride Carbon Dioxide Anion Gap BUN Creatinine Est Cr Clr Drug Dosing eGFR BUN/Creatinine Ratio Glucose Estimat Average Glucose Hemoglobin A1c Calcium Total Bilirubin AST ALT Alkaline Phosphatase Total Protein Albumin Globulin Albumin/Globulin Ratio Triglycerides Cholesterol LDL Cholesterol, Calc VLDL Cholesterol, Calc HDL Cholesterol Cholesterol/HDL Ratio Vitamin B12 193 25-OH Vitamin D Total TSH HCG, Qual Urine Color Yellow Urine Appearance Clear Urine pH 6.5 Ur Specific [place] 1.015 Urine Protein Negative Urine Glucose (UA) Negative Urine Ketones Negative Urine Blood Negative Urine Nitrite Negative Urine Bilirubin Negative Urine Urobilinogen Negative Ur Leukocyte Esterase 3+ H Urine WBC (Auto) 21-50 H Urine RBC (Auto) 0-2 U Hyaline Cast (Auto) 0-2 U Epithel Cells (Auto) 3-5 H Urine Bacteria (Auto) 1+ H Urine Comment Salicylates Urine Opiates Screen Ur Methadone, Qual Urine Fentanyl Screen Acetaminophen Urine Barbiturates Ur Phencyclidine (PCP) U Amphetamin/Meth Scrn Urine MDEA MDMA (Ecstasy) Screen MDMA Urine MDMA U Benzodiazepines Scrn Ur Cocaine Metabolite U Marijuana (THC) Screen Ethyl Alcohol mg/dL SARS-CoV-2, RNA, NAAT Hospital Course (1) Depression with suicidal ideation: (2) MDD (major depressive disorder), recurrent episode, severe: (3) Generalized anxiety disorder with panic attacks: (4) Post traumatic stress disorder (PTSD): (5) Borderline personality disorder: Plan 08/16/25 ready for discharge 08/15/25 No medication changes 08/14/25 Continue current medications without changes Patient received second dose of B12 1000 mcg IM today. 08/13/25 Continue current medications without changes Add magnesium 400 mg at bedtime for insomnia Monitor mood and sleep 08/12/25 - B12 1000 mcg IM 1 dose today, next dose on Tuesday, then continue once a week until completing 4 doses. - continue medications without changes -Effexor 150 mg p.o. daily -Abilify 7.5mg daily -Buspar 15mg BID -propranolol 10mg TID -Klonopin 0.5mg BID prn for panic attacks -gabapentin 300mg TID prn for anxiety 08/11/25 -No medication changes. 08/10/25 -Today started higher dose of Effexor ER (150 mg p.o. every morning) -Will hold Abilify titration plan until tomorrow -Labs ordered for Tuesday including UA repeat of MDMA test. Also ordered B12 due to history of eating disorder and prolonged low appetite. Continue rest of medications without changes: -Abilify 7.5mg daily -Buspar 15mg BID with potential plan to titrate further in coming days -propranolol 10mg TID -Klonopin 0.5mg BID prn for panic attacks -gabapentin 300mg TID prn for anxiety 08/09/2025: -Increase Effexor ER to 150mg daily 08/08/2025: -Continue current medications and tx plan -Consider further abilify titration tomorrow 08/07/2025: -Increase mirtazapine to 30mg HS -Discontinue Celexa -Increase Effexor ER to 75mg daily 08/06/2025: The patient was admitted to the [facility] ([facility] mental health unit) on q15 min checks (behavioral with suicide precautions) for safety. The patient will participate in group, recreational, and milieu therapies and will be offered additional individual and family sessions as clinically appropriate. -Start cross-taper from citalopram to Effexor ER * Decrease citalopram from 40mg to 20mg tomorrow AM * Start Effexor ER 37.5mg daily -Increase mirtazapine from 7.5mg to 15mg HS -Discontinue trazodone -Continue Abilify 7.5mg daily -Continue Buspar 15mg BID with potential plan to titrate further in coming days -Start propranolol 10mg TID -Continue Klonopin 0.5mg BID prn for panic attacks -Start gabapentin 300mg TID prn for anxiety -Symptom questionnaires provided -Fasting lipid panel, HbA1c and Vit D ordered for tomorrow AM Mental Health & Subst Abuse Tx Psychiatrist Name of Psychiatrist: [facility] Date Of Appointment With Psychiatric Provider: 09/02 Time of Appointment with Psychiatrist: 1:50pm Psychiatric Appointment Comment: In person appt. [address] [facility], [address], [place] Therapist Name of Therapist: Codi Burkett [facility] Therapist's Date of Therapist Appointment: 08/28/25 Time of Therapist Appointment: 12:00 PM Therapy Appointment Comment: Telehealth Appointment Registered Vascular Technologist (Rvt) Name of Registered Vascular Technologist (Rvt): n/a Post Discharge Appointments Primary Care Physician Name Of Family Doctor/PCP: [facility]-Dr. Calvo Primary Care Provider Appointment Comment: Follow up at needed Smoking Cessation Counseling Tobacco Cessation Medication Prescribed at Discharge: Not Applicable/Non-Smoker Contact Information Discharge Discharge Address: [address] [place] [address] Discharge Plan Discharge Items Patient Disposition: Home - Self-Care Reason For Visit: MAJOR DEPRESSIVE DISORDER Discharge Diagnosis: Major depressive disorder generalized anxiety disorder Condition on Discharge: Good Activity: Resume your previous activity Non-emergency contact: Primary Care Provider, Psychiatrist and Therapist Call non-emergency contact if: you have any medication questions and your symptoms worsen Follow-up/Referrals: Francisco Javier Calvo MD [Primary Care Provider] - Diet: Regular Addtl Attending Provider Instructions: SPECIAL CARE INSTRUCTIONS: 1. Follow through with your scheduled aftercare appointments. If unable to keep an appointment, please call to reschedule. 2. Take your medication only as prescribed. Medication should not be changed or stopped without the approval of your doctor. In the event of worsening symptoms or concerns about side effects, contact your doctor immediately. 3. Utilize new healthy coping skills, anger management skills, and stress management skills learned during your hospitalization. Journal feelings and process them with a support person. Identify stressors or situations that may result in relapse, deterioration or inappropriate behaviors and develop a plan to deal with those issues. 4. If your coping skills are ineffective and you are in crisis, contact your outpatient providers for direction. If unable to reach your providers, please call the [facility] CRISIS LINE AT , go to the [facility] walk-in center at [address], [address], [place], or go to the closest Emergency Room. 5. Avoid alcohol and un-prescribed drugs. 6. You have been provided with the Mental Health Advance Directives Pamphlet for your review. 7. Your condition is stable for discharge to outpatient level of care, but recovery is an ongoing process. Ifthoughts to harm yourself or others return, follow the safety plan developed during your stay. Planning for a safe return home includes securing weapons. Our treatment team recommends weaponsbe removed from the home until your outpatient provider reassesses your progress. In rare cases where the items themselvescannot be removed, guns and ammunitionshould be secured separatelyand keys stored by a reliable personoutside of the home. If you were admitted on an involuntary commitment, the police or other legal authorities may be involved in this process. AFTERCARE APPOINTMENTS: * Please call your insurance company prior to your scheduled appointment to confirm your aftercare providers are covered. Take your insurance information to your appointments. WHO TO CALL AND WHEN: Medical Emergencies: For questions or emergencies related to your hospital stay, please contact the Inpatient Behavioral Health Unit at [phone]. A cyber incident analyst is on-call 18/04 for the Behavioral Health Unit for emergencies At any time you feel your situation is an emergency, you may also call 911 immediately. Pending Studies at Discharge: No Stand-Alone Forms: My [facility], Smoking Cessation Medications and DC Order Prescriptions: New venlafaxine 150 mg Capsule,Extended Release 24hr 150 mg PO QAM Qty: 30 0RF propranolol 10 mg Tablet 10 mg PO TID Qty: 30 0RF mirtazapine 15 mg Tablet 30 mg PO HS Qty: 30 0RF buspirone 15 mg Tablet 15 mg PO BID Qty: 30 0RF aripiprazole [Abilify] 15 mg Tablet 7.5 mg PO DAILY Qty: 30 0RF Continued Dupixent Syringe 300 mg/2 mL syringe See Rx Instructions .ROUTE .COMPLEX Qty: 4 11RF Dose Instruction: INJECT THE CONTENTS OF 1 SYRINGE (300 MG) UNDER THE SKIN EVERY 2 WEEKS Rx Instructions: INJECT THE CONTENTS OF 1 SYRINGE (300 MG) UNDER THE SKIN EVERY 2 WEEKS 01/26/2025-03/27/2026 [id number] desog-e.estradiol/e.estradiol [Azurette (28)] 0.15-0.02 mgx21 /0.01 mg x 5 tablet 1 tab PO DAILY Qty: 84 4RF folic acid 1 mg tablet 1 mg PO DAILY clonazepam 0.5 mg tablet 0.5 mg PO BID PRN (Reason: Anxiety) Discontinued aripiprazole 10 mg tablet 7.5 mg PO DAILY mirtazapine 7.5 mg tablet 7.5 mg PO HS trazodone 50 mg tablet 75 mg PO HS PRN (Reason: Sleep) buspirone 15 mg Tablet 15 mg PO BID citalopram 10 mg tablet 40 mg PO DAILY Discharge Orders: Discharge Order (Routine); Ordered 08/16/25 Ordered By: Tati Paredes/Other Patient Handouts: Coping with PTSD, Anxiety Disorders Tx, RAMAKRISHNA Admission Data Admit Date/Time: 08/05/25 12:51 Attending Provider: Christa Sandoval Admit Provider: Christa Sandoval Primary Care Provider: Francisco Javier Calvo V. Other Interventions: Discharge Summary Assessment (RN) Last Done: 08/16/25 09:38 PSY Interdisciplinary Discharge Planning Last Done: 08/16/25 09:46 [place] [address] D/C day mgmt > 30 min Patient Type Established Diagnoses Depression with suicidal ideation F32.A; R45.851 MDD (major depressive disorder), recurrent episode, severe F33.2 Generalized anxiety disorder with panic attacks F41.1; F41.0 Post traumatic stress disorder (PTSD) F43.10 Borderline personality disorder F60.3 Time Spent (min) 35
[2025-08-16 06:24] VITALS: BP 132/82; RESP 16
[2025-08-16 09:10] VITALS: PULSE 69
[2025-08-17 18:03] LABS: MDA negative; MDEA negative; MDMA (Ecstasy) Urine, Confirm negative
== END 2025-08-16 10:40 | disposition home or self-care (01) | DRG 885 ==
LOC: ED 08:10 → 3S 13:28
DX: Z88.5 Allergy status to narcotic agent; Z98.1 Arthrodesis status; Z83.3 Family history of diabetes mellitus; R45.851 Suicidal ideations; F41.0 Panic disorder [episodic paroxysmal anxiety]; F43.10 Post-traumatic stress disorder, unspecified; F41.1 Generalized anxiety disorder; F60.3 Borderline personality disorder; N39.0 Urinary tract infection, site not specified; F33.2 Major depressive disorder, recurrent severe without psychotic features